=== PATIENT | male | born 1960 | race Caucasian/White ===

== ENCOUNTER → 2020-04-26 13:23 | Outpatient (BNVA) | payer OTHER, SELFPAY | PROVIDERS: PCP Internal Medicine; Visit Provider Internal Medicine | DX: M54.2 Cervicalgia (principal); Z91.81 History of falling | CPT/HCPCS: 72050; 99203 ==

== ENCOUNTER 2021-04-27 14:02 | Outpatient (REF) | payer OTHER, SELFPAY ==
[2021-04-27 15:05] LABS: Influenza A PCR NEGATIVE (Negative); Influenza B PCR NEGATIVE (Negative); Resp Syncy Virus RNA Qual PCR NEGATIVE (Negative); SARS COV2 PCR INHOUSE NEGATIVE (Negative)
== END 2021-04-27 14:03 | disposition home or self-care (01) ==
LOC: HO.LNP 14:02
PROVIDERS: Visit Provider Physician Assistant
DX: Z20.822 Contact with and (suspected) exposure to COVID-19 (principal); J06.9 Acute upper respiratory infection, unspecified
CPT/HCPCS: 0241U

== ENCOUNTER 2022-09-08 09:14 | Outpatient (REF) | payer OTHER, SELFPAY ==
[2022-09-08 09:34] LABS: MANUAL DIFF FLAG NO
[2022-09-08 10:17] LABS: Basophils Absolute Auto 0.1 X10*3/uL (0.0-0.2); Basophils Percent Auto 0.7 % (0-2); Eosinophils Absolute Auto 0.2 X10*3/uL (0.0-0.4); Eosinophils Percent Auto 1.9 % (0-4); Hematocrit 51.3 % (42.0-52.0); Hemoglobin 17.3 g/dl (14.0-18.0); Imm Gran Abs Auto 0.12 X10*3/uL (0.00-0.03); Imm Gran Pct Auto 1.4 % (0.0-0.4); Lymphocytes Absolute Auto 2.6 X10*3/uL (1.2-4.9); Lymphocytes Percent Auto 29.8 % (20-40); Mean Corpuscular HGB Conc 33.7 g/dl (31.0-36.0); Mean Corpuscular Hemoglobin 29.3 pg (27.0-33.0); Mean Corpuscular Volume 86.8 fL (80.0-98.0); Mean Platelet Volume 9.5 fL (9.4-12.4); Monocytes Absolute Auto 0.7 X10*3/uL (0.1-1.2); Monocytes Percent Auto 7.9 % (2-11); Neutrophils Percent Auto 58.3 % (45-73); Platelet Count 265 X10*3/uL (160-400); Red Blood Count 5.91 X10*6/uL (4.60-5.80); Red Cell Distribution Width 12.9 % (11.0-16.0); White Blood Count 8.6 X10*3/uL (4.8-10.8)
[2022-09-08 10:19] LABS: Appearance Urine Clear; Color Urine Yellow; Glucose Urine UA Negative (Negative); Leukocyte Esterase Urine Negative (Negative); Nitrite Urine Negative (Negative); PH 5.5 (5.0-9.0); Specific Gravity - Urine 1.025 (1.005-1.025); UMIC TRIGGER UA YES; Urine Blood Negative (Negative); Urine Ketones Negative (Negative); Urine Protein 30 (1+) mg/dL (Neg-Trace)
[2022-09-08 10:21] LABS: Bacteria Urine None Seen (None Seen); Hyaline Casts Urine 0-2 /LPF (0-2); RBC Urine 0-2 /HPF (0-2); Squamous Epithelial Cell Urine 0-2 /HPF (0-2); WBC Urine 0-5 /HPF (0-5)
[2022-09-08 11:33] LABS: Prostate Specific Antigen 1.34 ng/mL (<0.05-4.0)
[2022-09-08 11:43] LABS: Alanine Aminotransferase 43 U/L (0-40); Albumin Level 4.5 g/dL (3.5-5.0); Alkaline Phosphatase 51 U/L (39-117); Anion Gap 14 (12-20); Aspartate Amino Transferase 29 U/L (5-37); Bilirubin Total 0.8 mg/dL (0.0-1.0); Blood Urea Nitrogen 19 mg/dL (9-16); Calcium 9.5 mg/dL (8.4-10.2); Carbon Dioxide 24 mmol/L (22-29); Chloride 106 mmol/L (96-108); Cholesterol 252 mg/dL; Estimated Glomerular Filt Rate > 60; Glucose Random 107 mg/dL (60-115); HDL Cholesterol 35 mg/dL; Potassium 4.5 mmol/L (3.3-5.1); Sodium 140 mmol/L (135-145); Total Protein 7.2 g/dL (6.5-8.0)
[2022-09-08 16:57] LABS: LDL Cholesterol Calculated 163 mg/dl; Triglycerides 271 mg/dL
== END 2022-09-08 09:15 | disposition home or self-care (01) ==
LOC: HO.LAB 09:14
PROVIDERS: PCP Internal Medicine; Visit Provider Internal Medicine
DX: Z00.00 Encounter for general adult medical examination without abnormal findings (principal); Z12.5 Encounter for screening for malignant neoplasm of prostate
CPT/HCPCS: 36415; 80053; 80061; 81001; 84153; 85025

== ENCOUNTER 2023-02-02 10:16 | Outpatient (REF) | payer BC, SELFPAY ==
[2023-02-02 11:45] LABS: Alanine Aminotransferase 52 U/L (0-40); Albumin Level 4.5 g/dL (3.5-5.0); Alkaline Phosphatase 54 U/L (39-117); Anion Gap 14 (12-20); Aspartate Amino Transferase 35 U/L (5-37); Bilirubin Total 0.9 mg/dL (0.0-1.0); Blood Urea Nitrogen 16 mg/dL (9-16); Calcium 9.6 mg/dL (8.4-10.2); Carbon Dioxide 23 mmol/L (22-29); Chloride 107 mmol/L (96-108); Estimated Glomerular Filt Rate > 60; Glucose Random 129 mg/dL (60-115); Magnesium 2.2 mg/dL (1.6-2.6); Potassium 3.8 mmol/L (3.3-5.1); Sodium 140 mmol/L (135-145); Total Protein 7.6 g/dL (6.5-8.0)
== END 2023-02-02 10:17 | disposition home or self-care (01) ==
LOC: HO.LAB 10:16
PROVIDERS: PCP Internal Medicine; Visit Provider Internal Medicine
DX: E78.00 Pure hypercholesterolemia, unspecified (principal); R25.2 Cramp and spasm; K21.9 Gastro-esophageal reflux disease without esophagitis
CPT/HCPCS: 36415; 80053; 82550; 83735

== ENCOUNTER 2023-02-16 08:57 | Outpatient (REF) | payer BC, SELFPAY ==
[2023-02-16 10:02] LABS: Estimated Average Glucose 111 mg/dL; Hemoglobin A1C 138.5866 umol/L; Hemoglobin A1c % 5.5 % (<6.0)
[2023-02-16 10:41] LABS: Alanine Aminotransferase 59 U/L (0-40); Albumin Level 4.4 g/dL (3.5-5.0); Alkaline Phosphatase 49 U/L (39-117); Anion Gap 14 (12-20); Aspartate Amino Transferase 37 U/L (5-37); Bilirubin Total 0.8 mg/dL (0.0-1.0); Blood Urea Nitrogen 11 mg/dL (9-16); Calcium 9.6 mg/dL (8.4-10.2); Carbon Dioxide 24 mmol/L (22-29); Chloride 107 mmol/L (96-108); Estimated Glomerular Filt Rate > 60; Glucose Random 100 mg/dL (60-115); Sodium 141 mmol/L (135-145); Total Protein 7.4 g/dL (6.5-8.0)
== END 2023-02-16 08:58 | disposition home or self-care (01) ==
LOC: HO.LAB 08:57
PROVIDERS: PCP Internal Medicine; Visit Provider Internal Medicine
DX: R74.8 Abnormal levels of other serum enzymes (principal)
CPT/HCPCS: 36415; 80053; 82550; 83036

== ENCOUNTER 2023-02-28 10:14 | Outpatient (REF) | payer BC, SELFPAY ==
[2023-02-28 12:24] LABS: Alanine Aminotransferase 57 U/L (0-40); Albumin Level 4.5 g/dL (3.5-5.0); Alkaline Phosphatase 51 U/L (39-117); Aspartate Amino Transferase 34 U/L (5-37); Bilirubin Direct 0.3 mg/dL (0.0-0.5); Bilirubin Total 0.9 mg/dL (0.0-1.0); Total Protein 7.6 g/dL (6.5-8.0)
== END 2023-02-28 10:15 | disposition home or self-care (01) ==
LOC: HO.10HDL 10:14
PROVIDERS: Visit Provider Internal Medicine
DX: R74.8 Abnormal levels of other serum enzymes (principal); K21.9 Gastro-esophageal reflux disease without esophagitis
CPT/HCPCS: 36415; 80076; 82550

== ENCOUNTER 2023-03-19 09:23 | Outpatient (REF) | payer BC, SELFPAY ==
[2023-03-19 11:12] LABS: Alanine Aminotransferase 42 U/L (0-40); Albumin Level 4.3 g/dL (3.5-5.0); Alkaline Phosphatase 49 U/L (39-117); Aspartate Amino Transferase 30 U/L (5-37); Bilirubin Direct 0.2 mg/dL (0.0-0.5); Bilirubin Total 0.5 mg/dL (0.0-1.0); Total Protein 7.3 g/dL (6.5-8.0)
== END 2023-03-19 09:24 | disposition home or self-care (01) ==
LOC: HO.10HDL 09:23
PROVIDERS: Visit Provider Internal Medicine
DX: E78.00 Pure hypercholesterolemia, unspecified (principal); R79.89 Other specified abnormal findings of blood chemistry; R74.8 Abnormal levels of other serum enzymes
CPT/HCPCS: 36415; 80076; 82550

== ENCOUNTER 2023-04-13 09:42 | Outpatient (REF) | payer BC, SELFPAY ==
[2023-04-13 10:11] LABS: MANUAL DIFF FLAG NO
[2023-04-13 10:51] LABS: Basophils Absolute Auto 0.1 X10*3/uL (0.0-0.2); Basophils Percent Auto 0.6 % (0-2); Eosinophils Absolute Auto 0.1 X10*3/uL (0.0-0.4); Eosinophils Percent Auto 1.6 % (0-4); Hematocrit 50.9 % (42.0-52.0); Hemoglobin 17.2 g/dl (14.0-18.0); Imm Gran Abs Auto 0.13 X10*3/uL (0.00-0.03); Imm Gran Pct Auto 1.5 % (0.0-0.4); Lymphocytes Absolute Auto 2.5 X10*3/uL (1.2-4.9); Lymphocytes Percent Auto 28.6 % (20-40); Mean Corpuscular HGB Conc 33.8 g/dl (31.0-36.0); Mean Corpuscular Hemoglobin 29.8 pg (27.0-33.0); Mean Corpuscular Volume 88.2 fL (80.0-98.0); Mean Platelet Volume 9.7 fL (9.4-12.4); Monocytes Absolute Auto 0.6 X10*3/uL (0.1-1.2); Monocytes Percent Auto 6.9 % (2-11); Neutrophils Absolute Auto 5.3 x10*3/uL (2.0-8.3); Neutrophils Percent Auto 60.8 % (45-73); Platelet Count 276 X10*3/uL (160-400); Red Blood Count 5.77 X10*6/uL (4.60-5.80); Red Cell Distribution Width 13.2 % (11.0-16.0); White Blood Count 8.7 X10*3/uL (4.8-10.8)
[2023-04-13 11:18] LABS: Alanine Aminotransferase 59 U/L (0-40); Albumin Level 4.3 g/dL (3.5-5.0); Alkaline Phosphatase 47 U/L (39-117); Aspartate Amino Transferase 36 U/L (5-37); Bilirubin Direct 0.2 mg/dL (0.0-0.5); Bilirubin Total 0.7 mg/dL (0.0-1.0); Total Protein 7.3 g/dL (6.5-8.0)
== END 2023-04-13 09:43 | disposition home or self-care (01) ==
LOC: HO.LAB 09:42
PROVIDERS: PCP Internal Medicine; Visit Provider Internal Medicine
DX: R79.89 Other specified abnormal findings of blood chemistry (principal)
CPT/HCPCS: 36415; 80076; 82550; 85025; 86140

== ENCOUNTER 2023-06-10 11:36 | Emergency (ER) | payer BC, SELFPAY ==
--- NOTE | ~2023-06-10 | XR_ITS ---
EXAMINATION: XR CHEST CLINICAL INFORMATION: Chest pain. COMPARISON: None available. TECHNIQUE: 2 views of the chest were obtained. FINDINGS: The lungs are well inflated. There is no gross pneumothorax. Heart size is normal. Degenerative changes in the thoracic spine. No pleural effusion. Evaluation of the lower right lung is limited as it is partially somewhat obscured due to overlying leads. No gross focal consolidation to suggest pneumonia is appreciated. XR/XR chest 2V IMPRESSION: Evaluation of the lower right lung is limited as it is partially obscured due to overlying leads. No gross focal consolidation to suggest pneumonia is appreciated. This study was presented today June 10, 2023 at 12:43 PM for interpretation. Stat results provided at this time as requested by referring provider.
[2023-06-10 11:49] VITALS: BP 135/94; BP 179/89; PULSE 77; PULSE 80; RESP 16; TEMP 36.8; O2SAT 97; BMI 29.2
[2023-06-10 11:51] VITALS: PULSE 81
--- NOTE | 2023-06-10 11:52 | ECG_ITS ---
Test Reason : CHEST PAIN Blood Pressure : / mmHG Vent. Rate : 074 BPM Atrial Rate : 074 BPM P-R Int : 186 ms QRS Dur : 076 ms QT Int : 370 ms P-R-T Axes : 070 037 037 degrees QTc Int : 410 ms Normal sinus rhythm Normal ECG No previous ECGs available Referred By: Ena Heredia Electronically Signed By:SUSANA BARRIOS MD
--- NOTE | 2023-06-10 11:52 | ED.CHESTPAIN ---
HPI - Chest Pain General Chief Complaint: Chest Pain Stated Complaint: CHEST PAIN PER EMS Time Seen by Provider: 06/10/23 11:52 Source: patient, family, EMS and RN notes reviewed Mode of arrival: EMS Limitations: no limitations History of Present Illness HPI narrative: Patient is a 62-year-old male with history of GERD presenting to the emergency department with complaint chest pain since 11:00 a.m.. Patient reports that the pain began approximately 30-45 minutes after shoveling snow this morning. States he ate a small amount of spicy sausage prior to onset of pain and was unsure if this was related, but became concerned when pain persisted. He denies any shortness of breath or palpitations. Does report some lightheadedness associated with the chest pain. Denies any nausea or vomiting. Denies fevers. Denies recent cough or other URI symptoms. Denies any lower extremity edema or calf pain or swelling. Denies pain at present. Received 324mg ASA from EMS. Daughter reports that patient was previously on a statin but it was discontinued due to elevation of liver enzymes. MD complaint: chest pain Onset (ago): minute(s) Timing of current episode: now resolved Prior episodes: No Onset: during rest (after exertion) Pain location: left chest Pain radiation: none Severity: moderate Quality: sharp Relieving factors: nothing Associated symptoms: other (lightheaded) Treatment prior to arrival: aspirin Related Data Home Medications Medication Instructions Recorded Confirmed atorvastatin 40 mg tablet 40 mg PO DAILY 04/27/21 omeprazole magnesium 20 mg 20 mg PO DAILY 04/27/21 capsule,delayed release zolpidem 10 mg tablet 10 mg PO BEDTIME PRN 04/27/21 Allergies Allergy/AdvReac Type Severity Reaction Status Date / Time No Known Allergies Allergy Verified 06/10/23 11:49 [No Known Allergies*] Review of Systems Review of Systems: As per HPI. Yes all other systems are reviewed and are negative Constitutional: Constitutional: Reports as per HPI [facility] Social History Social History Patient Tobacco Use Status: Former Tobacco user Smoked in Last 30 Days: No Use of substances other than those prescribed or required for medical reasons: No Advance Directives: No Advance Directives Information Provided: No Physical Exam Vital Signs: Vital Signs: Last Vital Signs Temp 98.2 F 06/10/23 11:49 Pulse 77 06/10/23 11:49 Resp 16 06/10/23 11:49 BP 179/89 H 06/10/23 11:49 Pulse Ox 97 06/10/23 11:49 O2 Del Method Room Air 06/10/23 11:49 BMI result Body Mass Index 29.2 Vital signs have been reviewed and appear to be correct. Blood pressure elevated. Heart rate normal. Respiratory rate normal. Temperature normal. Oxygen saturation normal. Const: General: cooperative, healthy appearing and no acute distress Orientation/consciousness: oriented to person, oriented to place, oriented to time and patient oriented x3 Limitations: no limitations HEENT: Head: Yes normocephalic and Yes atraumatic Ears: external ears normal General nose exam: Normal external nose present Face and sinus: Yes face symmetric Mouth: oropharynx normal and moist mucous membranes Throat: Yes uvula midline Eyes: Pupils: Equal, round and reactive pupils present Neck: Neck: Yes normal visual inspection and Yes supple Resp: Effort & Inspection: normal respiratory effort and able to speak in complete sentences Auscultation: clear to auscultation bilaterally Cardio: Rate: regular rate Rhythm: regular rhythm Heart sounds: S1 normal heart sound present and S2 normal heart sound present GI: Palpation (GI): Soft to palpation and nontender Auscultation: normoactive bowel sounds : General: Yes no CVA tenderness Back/Spine/Pelvis: Back: no CVA tenderness Skin: General skin exam: elasticity normal and turgor normal Neuro: General: oriented to person, oriented to place, oriented to time, patient oriented x3, moves all extremities, no focal motor deficits and CN's II-XI intact bilaterally Cranial nerves: Yes Equal, round and reactive pupils present Cognition (Neuro): normal cognition Extrem: General: Yes full ROM, Yes no pedal edema and Yes no calf tenderness Psych: Mental Status: mental status grossly normal Affect: normal affect Thought process: Normal thought process present Medications Administered Discontinued Medications Generic Name Dose Route Start Last Admin Trade Name Freq PRN Reason Stop Dose Admin Aspirin 324 mg 06/10/23 11:52 06/10/23 11:54 Aspirin 81 Mg Tab.Chew PO 06/10/23 11:53 Not Given ONCE ONE Medical Decision Making Medical Decision Making MDM Narrative: Patient is a 62-year-old male with history of GERD presenting to the emergency department with complaint chest pain since 11:00 a.m.. On exam patient is awake, A+Ox3, VS WNL, afebrile, normal neurological exam without focal deficits, physical exam findings as above. Given reported symptoms and physical exam findings, initial differential includes ACS, musculoskeletal pain, GERD, PUD. Do not suspect aortic dissection, esophageal rupture,, pneumothorax. Unlikely PE, Wells negative. Plan: EKG, CXR, labs Labs notable for cytosis, no anemia, mildly elevated BUN, mildly elevated ALT, troponin 9.2 will repeat in 3 hours. X-ray notable for no evidence of pneumonia, cardiomegaly. My interpretation is in agreement with the radiologist's interpretation. EKG shows normal sinus rhythm. HEART score of 3. Repeat troponin downtrending. Feel patient is stable for discharge home. Instructed patient to follow up with PCP. Return precautions discussed at bedside. Patient verbalized understanding of and agreement with plan. Differential Diagnosis Differential Diagnoses: The differential diagnosis associated with the presentation includes As per [facility]. Admission/Observation Consideration of admission/observation: Escalation of care including admission/observation considered Lab Data [facility] Lab Attestation statement: I reviewed the patient's lab results. As per MDM. 06/10/23 11:58 06/10/23 11:58 Labs: Lab Results 06/10/23 06/10/23 Range/Units 11:58 15:06 WBC 10.5 (4.8-10.8) X10*3/uL RBC 5.74 (4.60-5.80) X10*6/uL Hgb 17.0 (14.0-18.0) g/dl Hct 48.9 (42.0-52.0) % MCV 85.2 (80.0-98.0) fL MCH 29.6 (27.0-33.0) pg MCHC 34.8 (31.0-36.0) g/dl RDW 12.7 (11.0-16.0) % Plt Count 264 (160-400) X10*3/uL MPV 9.1 L (9.4-12.4) fL Immature Gran % (Auto) 0.9 H (0.0-0.4) % Neut % (Auto) 66.8 (45-73) % Lymph % (Auto) 25.5 (20-40) % [place] % (Auto) 5.0 (2-11) % Eos % (Auto) 1.4 (0-4) % Baso % (Auto) 0.4 (0-2) % Lymph # (Auto) 2.7 (1.2-4.9) X10*3/uL [place] # (Auto) 0.5 (0.1-1.2) X10*3/uL Eos # (Auto) 0.2 (0.0-0.4) X10*3/uL Baso # (Auto) 0.0 (0.0-0.2) X10*3/uL Abs Immat Gran (auto) 0.09 H (0.00-0.03) X10*3/uL Absolute Neuts (auto) 7.0 (2.0-8.3) x10*3/uL Absolute Nucleated RBC 0.000 (0.0-0.012) X10*3/uL Nucleated RBC % (auto) 0.0 (0.0-0.2) /100WBC PT 11.3 (11.1-13.3) SEC INR 0.9 (0.9-1.1) Sodium 140 (135-145) mmol/L Potassium 3.9 (3.3-5.1) mmol/L Chloride 108 (96-108) mmol/L Carbon Dioxide 24 (22-29) mmol/L Anion Gap 12 (12-20) BUN 19 H (9-16) mg/dL Creatinine 1.00 (0.5-1.4) mg/dL Estim Creat Clear Calc 90.4 Estimated GFR > 60 Random Glucose 96 (60-115) mg/dL Calcium 9.7 (8.4-10.2) mg/dL Total Bilirubin 0.6 (0.0-1.0) mg/dL AST 29 (5-37) U/L ALT 46 H (0-40) U/L Alkaline Phosphatase 53 (39-117) U/L Troponin I High Sens 9.2 7.9 (<3.5-35.0) ng/L Total Protein 7.4 (6.5-8.0) g/dL Albumin 4.4 (3.5-5.0) g/dL COVID-19 (IGGY) Negative (Negative) COVID-19 Clin Com See Note Influenza Type A ([place]IL) Negative (Negative) Influenza Type B ([place]IL) Negative (Negative) Influenza A & B Note See Note Independent Interpretation I performed an independent interpretation of an: EKG (Mode sinus rhythm, rate 74 beats per minute, normal MN interval and QTC, no evidence of STEMI) and Plain X-Ray Interpretation: No evidence of pneumonia or cardiomegaly on chest x-ray Radiology Impression Discussion of test interpretation with radiology: I have reviewed the radiologist's reading. Radiologist Impression: XR/XR chest 2V IMPRESSION: Evaluation of the lower right lung is limited as it is partially obscured due to overlying leads. No gross focal consolidation to suggest pneumonia is appreciated. External Record Review External record reviewed: Inpatient record, Office record and Outpatient record Scores Heart Score History: -1- moderately suspicious ECG: -0- normal Age: -1- >45 - <65 Risk factory: -1- 1 or 2 risk factors Troponin: -0- < or = normal limit Score: 3 Risk: 1.7% Discharge Plan Discharge Clinical Impression: Chest pain Patient Disposition: Home, Self-Care Instructions: Chest Pain (DC) Additional Instructions: You were evaluated in the emergency department today for chest pain. Your evaluation has shown no signs of medical conditions requiring emergent intervention at this time, however we recommend that you follow-up with your primary care physician as soon as possible for further testing as an outpatient. Return to the emergency department if you experience worsening or uncontrolled chest pain, shortness of breath, lightheadedness, feeling faint, loss of consciousness, nausea, vomiting, or any other concerning symptoms. Prescriptions: No Action atorvastatin 40 mg tablet 40 mg PO DAILY zolpidem 10 mg tablet 10 mg PO BEDTIME PRN omeprazole magnesium 20 mg capsule,delayed release(DR/EC) 20 mg PO DAILY
[2023-06-10 12:02] LABS: MANUAL DIFF FLAG NO
[2023-06-10 12:03] LABS: Basophils Percent Auto 0.4 % (0-2); Eosinophils Absolute Auto 0.2 X10*3/uL (0.0-0.4); Eosinophils Percent Auto 1.4 % (0-4); Hematocrit 48.9 % (42.0-52.0); Imm Gran Abs Auto 0.09 X10*3/uL (0.00-0.03); Imm Gran Pct Auto 0.9 % (0.0-0.4); Lymphocytes Absolute Auto 2.7 X10*3/uL (1.2-4.9); Lymphocytes Percent Auto 25.5 % (20-40); Mean Corpuscular HGB Conc 34.8 g/dl (31.0-36.0); Mean Corpuscular Hemoglobin 29.6 pg (27.0-33.0); Mean Corpuscular Volume 85.2 fL (80.0-98.0); Mean Platelet Volume 9.1 fL (9.4-12.4); Monocytes Absolute Auto 0.5 X10*3/uL (0.1-1.2); Neutrophils Percent Auto 66.8 % (45-73); Platelet Count 264 X10*3/uL (160-400); Red Blood Count 5.74 X10*6/uL (4.60-5.80); Red Cell Distribution Width 12.7 % (11.0-16.0); White Blood Count 10.5 X10*3/uL (4.8-10.8)
[2023-06-10 12:11] LABS: INTERNATIONAL NORM RATIO 0.9 (0.9-1.1); Prothrombin Time 11.3 SEC (11.1-13.3)
[2023-06-10 12:18] LABS: Alanine Aminotransferase 46 U/L (0-40); Albumin Level 4.4 g/dL (3.5-5.0); Alkaline Phosphatase 53 U/L (39-117); Anion Gap 12 (12-20); Aspartate Amino Transferase 29 U/L (5-37); Bilirubin Total 0.6 mg/dL (0.0-1.0); Blood Urea Nitrogen 19 mg/dL (9-16); Calcium 9.7 mg/dL (8.4-10.2); Carbon Dioxide 24 mmol/L (22-29); Chloride 108 mmol/L (96-108); Creatinine Clr Calc Pharmacy 90.4; Estimated Glomerular Filt Rate > 60; Glucose Random 96 mg/dL (60-115); Potassium 3.9 mmol/L (3.3-5.1); Sodium 140 mmol/L (135-145); Total Protein 7.4 g/dL (6.5-8.0)
[2023-06-10 12:26] LABS: COVID-19 Test Negative (Negative); IDNOW Serial# 08D9AD1C; Troponin-I High Sensitivity 9.2 ng/L (<3.5-35.0)
[2023-06-10 12:27] LABS: IDNOW Serial# 152EDE1D; Influenza A Negative (Negative); Influenza B2 Negative (Negative)
[2023-06-10 15:32] LABS: Troponin-I High Sensitivity 7.9 ng/L (<3.5-35.0)
[2023-06-10 16:03] VITALS: BP 139/87; PULSE 67; RESP 16; O2SAT 98
== END 2023-06-10 16:07 | disposition home or self-care (01) ==
PROVIDERS: Registered Nurse Emergency; Emergency Provider Emergency Medicine; PCP Internal Medicine
DX: R07.9 Chest pain, unspecified (principal); K21.9 Gastro-esophageal reflux disease without esophagitis; Z11.52 Encounter for screening for COVID-19; Z79.899 Other long term (current) drug therapy
CPT/HCPCS: 36415; 71046; 80053; 84484; 85025; 85610; 87502; 87635; 93005; 99283; 99285

== ENCOUNTER → 2023-06-10 11:52 | Outpatient (BNV) | payer BC, SELFPAY | PROVIDERS: Emergency Provider Emergency Medicine; PCP Internal Medicine; Visit Provider Internal Medicine Cardiovascular Disease | DX: R07.9 Chest pain, unspecified (principal) | CPT/HCPCS: 93010 ==

== ENCOUNTER 2023-06-15 09:12 | Outpatient (REF) | payer BC, SELFPAY ==
[2023-06-15 10:42] LABS: Cholesterol 216 mg/dL (<200); HDL Cholesterol 34 mg/dL (>40); LDL Cholesterol Calculated 149 mg/dL (<100); Triglycerides 167 mg/dL (<150)
== END 2023-06-15 09:13 | disposition home or self-care (01) ==
LOC: HO.LAB 09:12
PROVIDERS: PCP Internal Medicine; Visit Provider Internal Medicine
DX: E78.00 Pure hypercholesterolemia, unspecified (principal); K21.9 Gastro-esophageal reflux disease without esophagitis
CPT/HCPCS: 36415; 80061; 82550

== ENCOUNTER 2023-07-01 10:23 | Emergency (ER) | payer BC, SELFPAY ==
--- NOTE | ~2023-07-01 | XR_ITS ---
EXAMINATION: XR CHEST CLINICAL INFORMATION: SOB COMPARISON: None available. TECHNIQUE: Frontal view of the chest was obtained. FINDINGS: No significant abnormality is noted involving the heart, lungs, mediastinum, bony thorax or soft tissues. XR/XR chest 1V IMPRESSION: Unremarkable chest examination.
[2023-07-01 10:27] VITALS: BP 159/110; PULSE 98; RESP 16; TEMP 36.1; O2SAT 98; BMI 27.1
--- NOTE | 2023-07-01 10:30 | ECG_ITS ---
Test Reason : SOB Blood Pressure : / mmHG Vent. Rate : 086 BPM Atrial Rate : 086 BPM P-R Int : 172 ms QRS Dur : 086 ms QT Int : 360 ms P-R-T Axes : 068 040 057 degrees QTc Int : 430 ms Normal sinus rhythm Normal ECG When compared with ECG of 10-JUN-2023 12:44, No significant change was found Referred By: Generic ED Physician Electronically Signed By:SUSANA BARRIOS MD
[2023-07-01 11:07] LABS: MANUAL DIFF FLAG NO
[2023-07-01 11:16] LABS: Prothrombin Time 11.8 SEC (11.1-13.3)
[2023-07-01 11:17] LABS: Basophils Percent Auto 0.4 % (0-2); Eosinophils Absolute Auto 0.2 X10*3/uL (0.0-0.4); Hematocrit 52.1 % (42.0-52.0); Hemoglobin 17.9 g/dl (14.0-18.0); Imm Gran Abs Auto 0.06 X10*3/uL (0.00-0.03); Imm Gran Pct Auto 0.8 % (0.0-0.4); Lymphocytes Absolute Auto 2.5 X10*3/uL (1.2-4.9); Lymphocytes Percent Auto 31.7 % (20-40); Mean Corpuscular HGB Conc 34.4 g/dl (31.0-36.0); Mean Corpuscular Hemoglobin 29.3 pg (27.0-33.0); Mean Corpuscular Volume 85.4 fL (80.0-98.0); Mean Platelet Volume 9.1 fL (9.4-12.4); Monocytes Absolute Auto 0.6 X10*3/uL (0.1-1.2); Monocytes Percent Auto 7.4 % (2-11); Neutrophils Absolute Auto 4.6 x10*3/uL (2.0-8.3); Neutrophils Percent Auto 57.7 % (45-73); Platelet Count 250 X10*3/uL (160-400); Red Cell Distribution Width 12.6 % (11.0-16.0); White Blood Count 7.9 X10*3/uL (4.8-10.8)
[2023-07-01 11:27] LABS: Alanine Aminotransferase 55 U/L (0-40); Albumin Level 4.3 g/dL (3.5-5.0); Alkaline Phosphatase 53 U/L (39-117); Anion Gap 13 (12-20); Aspartate Amino Transferase 29 U/L (5-37); Bilirubin Direct 0.3 mg/dL (0.0-0.5); Bilirubin Total 0.9 mg/dL (0.0-1.0); Blood Urea Nitrogen 15 mg/dL (9-16); Calcium 10.2 mg/dL (8.4-10.2); Carbon Dioxide 29 mmol/L (22-29); Chloride 104 mmol/L (96-108); Creatinine Clr Calc Pharmacy 83.5; Estimated Glomerular Filt Rate > 60; Glucose Random 112 mg/dL (60-115); Potassium 4.6 mmol/L (3.3-5.1); Sodium 141 mmol/L (135-145); Total Protein 7.8 g/dL (6.5-8.0)
[2023-07-01 11:31] LABS: Troponin-I High Sensitivity 9.2 ng/L (<3.5-35.0)
[2023-07-01 11:33] LABS: Appearance Urine Clear; Color Urine Dark Yellow; Glucose Urine UA Negative (Negative); Leukocyte Esterase Urine Trace (Negative); Nitrite Urine Negative (Negative); Specific Gravity - Urine >= 1.030 (1.005-1.025); UMIC TRIGGER UACC YES; Urine Blood Negative (Negative); Urine Ketones Trace mg/dL (Negative); Urine Protein 100 (2+) mg/dL (Neg-Trace)
[2023-07-01 11:38] LABS: Bacteria Urine None Seen (None Seen); Hyaline Casts Urine 0-2 /LPF (0-2); RBC Urine 0-2 /HPF (0-2); Squamous Epithelial Cell Urine 0-2 /HPF (0-2); UACC Culture Trigger YES
[2023-07-01 11:51] LABS: Influenza A PCR POSITIVE (Negative); Influenza B PCR NEGATIVE (Negative); Resp Syncy Virus RNA Qual PCR NEGATIVE (Negative); SARS COV2 PCR INHOUSE NEGATIVE (Negative)
[2023-07-01 15:53] VITALS: BP 168/98; PULSE 90; RESP 16; TEMP 36.9; O2SAT 99
[2023-07-01 15:55] VITALS: O2SAT 98
--- NOTE | 2023-07-01 16:06 | ED_ITS ---
HPI - URI/Sore Throat General Chief Complaint: Upper Respiratory Symptoms Stated Complaint: Flu+ 1wk chest heaviness Time Seen by Provider: 07/01/23 15:46 Source: patient Mode of arrival: ambulatory Limitations: no limitations History of Present Illness HPI Narrative: Is a 62 old male who presents emergency department for evaluation of a productive cough for 8 days in the setting of recent illness. Over the past 2 days he developed diffuse anterior chest heaviness that is reproducible to cough and deep inspiration. Previously had headache, body aches, chills which have since subsided however he Reports that he contacted his primary care provider who prescribed Tamiflu. Denies fevers, chills, headache, dizziness, neck pain, neck stiffness, cough, sore throat, nausea, vomiting, abdominal pain, numbness or tingling of the extremities, genitourinary symptoms. Related Data Home Medications Medication Instructions Recorded Confirmed atorvastatin 40 mg tablet 40 mg PO DAILY 04/27/21 omeprazole magnesium 20 mg 20 mg PO DAILY 04/27/21 capsule,delayed release zolpidem 10 mg tablet 10 mg PO BEDTIME PRN 04/27/21 Previous Rx's Medication Instructions Recorded albuterol sulfate 90 mcg/actuation 2 puff inhalation Q4-6H PRN 07/01/23 aerosol inhaler shortness of breath or wheezing #6.7 grams azithromycin 250 mg tablet See Rx Instructions PO .COMPLEX #6 07/01/23 tabs Allergies Allergy/AdvReac Type Severity Reaction Status Date / Time No Known Allergies Allergy Verified 06/10/23 11:49 [No Known Allergies*] Review of Systems 2 Review of Systems: Yes all other systems are reviewed and are negative PMFSH Past Medical History Attestation statement: The following information was validated with the patient. Source: old records reviewed Social History Social History Alcohol intake: current Alcohol intake frequency: holidays/special occasions only Patient Tobacco Use Status: Former Tobacco user Smoked in Last 30 Days: No Use of substances other than those prescribed or required for medical reasons: No Advance Directives: No Advance Directives Information Provided: No Physical Exam 2 Vital Signs: Vital Signs: Last Vital Signs Temp 98.4 F 07/01/23 15:53 Pulse 90 07/01/23 15:53 Resp 16 07/01/23 15:53 BP 168/98 H 07/01/23 15:53 Pulse Ox 98 07/01/23 15:55 O2 Del Method Room Air 07/01/23 15:55 BMI result Body Mass Index 27.1 Appearance: Alert.?Oriented to person, place and time. No acute distress.?Normal affect. Eyes: Pupils equal, round and reactive to light.? ENT: TM normal bilaterally. Pharynx normal.?? Neck: Normal inspection.? Neck supple.??No cervical adenopathy CVS: Heart sounds normal. Normal heart rate and rhythm.? Pulses normal.?? Respiratory: No respiratory distress.? Lung sounds with mild rhonchi left lower lobe Abdomen: Soft and non-tender. Normoactive bowel sounds. Skin: Skin warm and dry.? Normal skin color.? ? Extremities: No lower extremity edema.? Neuro: Moves all extremities spontaneously. Sensation intact bilaterally. No motor deficits. Ambulates with normal steady gait. Medical Decision Making Medical Decision Making [facility] Narrative: Patient is a 62 year old male, presenting for evaluation of cough and reproducible chest pain, atypical for ACS. COVID-19 testing negative. Influenza A testing positive. At this time history and physical exam not consistent with ACS/PE; high sensitive troponin is normal and consistent with baseline, Wells negative. CXR without evidence of pneumonia Well-appearing, nontoxic, afebrile, no tachycardia or tachypnea/hypoxia. Speaking clear full sentences, ambulatory with steady gait. Discussed course of treatment with albuterol inhaler as needed for shortness of breath/wheezing and azithromycin in addition to conservative treatment including rest, hydration, Tylenol/ibuprofen as needed for fever and body aches, saline nasal spray, humidifier, [id number] cold medication. Advised to follow-up with primary care provider as needed, discussed reasons to return back to the emergency department. All questions were answered. Patient discharged home in stable condition. Differential Diagnosis Differential Diagnoses: The differential diagnosis associated with the presentation includes ( See narrative above) Admission/Observation Consideration of admission/observation: Escalation of care including admission/observation considered ( see narrative above) Lab Data [facility] Lab Attestation statement: I reviewed the patient's lab results. ( see narrative above) CBC and CMP overall unremarkable. High sensitive troponin within normal range consistent with baseline. Urinalysis without evidence of infection. Influenza A positive 07/01/23 10:57 07/01/23 10:57 Labs: Lab Results 07/01/23 07/01/23 Range/Units 10:56 10:57 WBC 7.9 (4.8-10.8) X10*3/uL RBC 6.10 H (4.60-5.80) X10*6/uL Hgb 17.9 (14.0-18.0) g/dl Hct 52.1 H (42.0-52.0) % MCV 85.4 (80.0-98.0) fL MCH 29.3 (27.0-33.0) pg MCHC 34.4 (31.0-36.0) g/dl RDW 12.6 (11.0-16.0) % Plt Count 250 (160-400) X10*3/uL MPV 9.1 L (9.4-12.4) fL Immature Gran % (Auto) 0.8 H (0.0-0.4) % Neut % (Auto) 57.7 (45-73) % Lymph % (Auto) 31.7 (20-40) % [place] % (Auto) 7.4 (2-11) % Eos % (Auto) 2.0 (0-4) % Baso % (Auto) 0.4 (0-2) % Lymph # (Auto) 2.5 (1.2-4.9) X10*3/uL [place] # (Auto) 0.6 (0.1-1.2) X10*3/uL Eos # (Auto) 0.2 (0.0-0.4) X10*3/uL Baso # (Auto) 0.0 (0.0-0.2) X10*3/uL Abs Immat Gran (auto) 0.06 H (0.00-0.03) X10*3/uL Absolute Neuts (auto) 4.6 (2.0-8.3) x10*3/uL Absolute Nucleated RBC 0.000 (0.0-0.012) X10*3/uL Nucleated RBC % (auto) 0.0 (0.0-0.2) /100WBC PT 11.8 (11.1-13.3) SEC INR 1.0 (0.9-1.1) Sodium 141 (135-145) mmol/L Potassium 4.6 (3.3-5.1) mmol/L Chloride 104 (96-108) mmol/L Carbon Dioxide 29 (22-29) mmol/L Anion Gap 13 (12-20) BUN 15 (9-16) mg/dL Creatinine 0.98 (0.5-1.4) mg/dL Estim Creat Clear Calc 83.5 Estimated GFR > 60 Random Glucose 112 (60-115) mg/dL Calcium 10.2 (8.4-10.2) mg/dL Total Bilirubin 0.9 (0.0-1.0) mg/dL Direct Bilirubin 0.3 (0.0-0.5) mg/dL AST 29 (5-37) U/L ALT 55 H (0-40) U/L Alkaline Phosphatase 53 (39-117) U/L Troponin I High Sens 9.2 (<3.5-35.0) ng/L Total Protein 7.8 (6.5-8.0) g/dL Albumin 4.3 (3.5-5.0) g/dL Urine Color Dark Yellow Urine Appearance Clear Urine pH 5.0 (5.0-9.0) Ur Specific [place] >= 1.030 H (1.005-1.025) Urine Protein 100 (2+) H (Neg-Trace) mg/dL Urine Glucose (UA) Negative (Negative) mg/dL Urine Ketones Trace (Negative) mg/dL Urine Blood Negative (Negative) Urine Nitrite Negative (Negative) Ur Leukocyte Esterase Trace H (Negative) Urine RBC 0-2 (0-2) /HPF Urine WBC 6-10 H (0-5) /HPF Ur Squamous Epith Cells 0-2 (0-2) /HPF Urine Bacteria None Seen (None Seen) Hyaline Casts 0-2 (0-2) /LPF Influenza Type A (PCR) POSITIVE A (Negative) Influenza Type B (PCR) NEGATIVE (Negative) RSV RNA Qual (PCR) NEGATIVE (Negative) SARS-CoV-2 RNA (RT-PCR) NEGATIVE (Negative) Independent Interpretation I performed an independent interpretation of an: EKG and Plain X-Ray (No evidence of pneumonia) Interpretation: Rate: 86 Rhythm:? Normal sinus rhythm [place]:?normal Normal P waves.? Normal [place].?? Normal QRS complex.?? ST T wave :??No ST elevation, no ST depression qTC:430 prior studies:? May 2023 The study has been interpreted contemporaneously by me. Radiology Impression Discussion of test interpretation with radiology: I have reviewed the radiologist's reading. Radiologist Impression: XR/XR chest 1V IMPRESSION: Unremarkable chest examination. External Record Review External record reviewed: Outpatient record Prescription Management I considered prescription management with: Pain Medication ( acetaminophen/ibuprofen) and Antibiotic Discharge Plan Discharge Clinical Impression: Bronchitis Patient Disposition: Home, Self-Care Instructions: Acute Bronchitis (ED) Additional Instructions: You can take ibuprofen 200 mg, 3 tablets (600mg) every 6-8 hours as needed for pain, in addition to Tylenol 500 mg, 2 tablets (1,000mg) every 4-6 hours as needed for pain, but not to exceed 3 doses daily (3,000mg).? Prescriptions: New azithromycin 250 mg tablet See Rx Instructions .ROUTE .COMPLEX Qty: 6 0RF Rx Instructions: For 250 mg dose pack: take 500 mg today (day 1), then 250 mg for 4 days (days 2-5) albuterol sulfate 90 mcg/actuation HFA aerosol inhaler 2 puff inhalation Q4-6H PRN (Reason: shortness of breath or wheezing) Qty: 6.7 0RF No Action atorvastatin 40 mg tablet 40 mg PO DAILY zolpidem 10 mg tablet 10 mg PO BEDTIME PRN omeprazole magnesium 20 mg capsule,delayed release(DR/EC) 20 mg PO DAILY Referrals: Jaydon Dang MD [Primary Care Provider] -
== END 2023-07-01 16:23 | disposition home or self-care (01) ==
PROVIDERS: Physician Assistant; Emergency Provider Student in an Organized Health Care Education/Training Program; PCP Internal Medicine
DX: J40 Bronchitis, not specified as acute or chronic (principal); R05.9 Cough, unspecified; R07.89 Other chest pain; J02.9 Acute pharyngitis, unspecified; R51.9 Headache, unspecified; M79.10 Myalgia, unspecified site; M54.2 Cervicalgia; Z20.828 Contact with and (suspected) exposure to other viral communicable diseases; Z11.52 Encounter for screening for COVID-19; Z79.899 Other long term (current) drug therapy
CPT/HCPCS: 0241U; 71045; 80048; 80076; 81001; 84484; 85025; 85610; 87086; 93005; 99283; 99285

== ENCOUNTER → 2023-07-01 10:30 | Outpatient (BNV) | payer BC, SELFPAY | PROVIDERS: Emergency Provider Student in an Organized Health Care Education/Training Program; PCP Internal Medicine; Visit Provider Internal Medicine Cardiovascular Disease | DX: R06.02 Shortness of breath (principal) | CPT/HCPCS: 93010 ==

== ENCOUNTER → 2023-08-13 07:53 | Outpatient (REF) | payer BC, SELFPAY ==
--- NOTE | 2023-08-13 07:55 | CA_ITS ---
Acquisition Time: 2023-08-13 08:06:16 Total Exercise Time: 00:04:01 Test Indications: CP Medications: SEE H Protocol: CANDY Max HR: 151 BPM 96% of Pred: 156 BPM Max BP: 200/090 mmHG Max Work Load: 5.8 METS PT EXERCISEDON STD CANDY PROTOCOL FOR 4 MIN INTO STAGE 2. MAX HR 150-96% MAX. NO CP. SOME SOB. PVC'S NOTED. 1MM ST DEP IN INF/LAT LEADS. SUSPICIOUS FOR ISCHEMIA. WILL REFER TO CARDIOLOGY FOR FURTHER EVAL. Referred By: Jaydon Carpenter Overread By: DEVON CARPENTER MD
== END ==
LOC: HO.CARD 07:53
PROVIDERS: PCP Internal Medicine; Visit Provider Internal Medicine
DX: R07.89 Other chest pain (principal)
CPT/HCPCS: 93005; 93017

== ENCOUNTER 2023-08-13 14:12 | Outpatient (AMB) | payer BC, SELFPAY ==
[2023-08-13 14:31] VITALS: BP 140/78; PULSE 84; BMI 27.5
--- NOTE | 2023-08-13 14:31 | MHC.OFFVIS ---
Intake Vital Signs 08/13/23 14:31 Height 6 ft Weight 202 lb 13.204 oz BMI 27.5 BP 140/78 H Blood Pressure Location Lt brachial Position Sitting Pulse 84 Pulse Source Monitor Intake Visit Reasons: Chest pain/ NPV/ Croke Accompanied by: Daughter Allergies No Known Allergies [No Known Allergies*] Allergy (Verified 06/10/23 11:49) Medication List - Last Reconciled 08/13/23 by Angelo Patton MD albuterol sulfate 90 mcg/actuation 2 puffs inhalation Q4-6H PRN azithromycin For 250 mg dose pack: take 500 mg today (day 1), then 250 mg for 4 days (days 2-5) metoprolol tartrate 50 mg PO BID omeprazole magnesium 20 mg PO DAILY HPI HPI Comments History of Present Illness Details Blake is here for consultation regarding chest pain and shortness of breath. He does not have any known coronary disease myocardial infarction fact any cardiac issues. Fairly active at baseline. Recently, he is noticing some chest pain/shortness of breath type symptoms off and on. He notices after he did some snow shoveling June. Since then, different times. More so exertional but not very clear. Shortness of breath seems to be more of a problem than the chest pain. He underwent stress test today through his own PCP and that showed ST depression and hence he is referred. Blood pressure is on the higher side last few times but he states he does not have any hypertension. Otherwise, he has been on statins in the past but there were abnormal LFTs and they were apparently stopped. [facility] Family History (Updated 08/13/23 @ 14:35 by Jennifer Woody) Mother Heart attack Social History Alcohol intake: current Alcohol intake frequency: holidays/special occasions only Patient Tobacco Use Status: Former Tobacco user Review of Systems Const Denies weakness ENT Denies dizziness Card Denies chest pain, Denies chest pain with activity, Denies syncope, Denies rapid heart rate, Denies pedal edema, Denies edema, Denies leg edema, Denies lightheadedness, Denies palpitations, Denies dyspnea, Denies dyspnea on exertion and Denies orthopnea Resp Denies cough, Denies dyspnea and Denies dyspnea on exertion GI Denies hematochezia and Denies change in stool character Musc Denies abnormal gait, Denies muscle cramps, Denies muscle weakness, Denies numbness, Denies radiating pain into limb and Denies tingling Neuro Denies abnormal gait, Denies dizziness, Denies syncope, Denies numbness, Denies tingling and Denies weakness Endo Denies palpitations Physical Exam Vital Signs: Last Vital Signs Pulse 84 08/13/23 14:31 BP 140/78 H 08/13/23 14:31 BMI result Body Mass Index 27.5 Const General: comfortable and no acute distress Orientation/consciousness: patient oriented x3 HEENT Other: Unremarkable Head: Yes normal to inspection Neck Neck: Yes normal visual inspection Chest Chest palpation & inspection: normal inspection of the chest Resp Auscultation: clear to auscultation bilaterally Cardio Palpation: normal PMI Heart sounds: S1 normal heart sound present, S2 normal heart sound present, no gallops, no murmurs and no rubs GI Palpation (GI): Soft to palpation Back/Spine/Pelvis Other: unremarkable Skin General skin exam: no rashes or lesions noted Neuro General: patient oriented x3 Extrem General: Yes normal to inspection Psych Mental Status: mental status grossly normal Office Procedures EKG Details: EKG with sinus rhythm at 84/Min; no significant ST-T changes and otherwise unremarkable. [place]. [address]-[id number], Complete Assessment & Plan Assessment & Plan (1) Precordial chest pain: Code(s): R07.2 - Precordial pain (2) Shortness of breath: Code(s): R06.02 - Shortness of breath (3) Abnormal stress test: Code(s): R94.39 - Abnormal result of other cardiovascular function study Plan Exercise stress test findings reviewed. He was able to exercise for about 4 minutes and reached 5.8 Mets. Reached target heart rates and had a hypertensive blood pressure response. He did not have any angina. There was ST depression. Upsloping as well as some horizontal ST depression. Seen during exercise and recovery. Findings discussed with patient as well as daughter who came for appointment. Recommend pursuing further workup with echocardiogram/coronary CTA. They are agreement. In the interim, avoid any form of strenuous activity. In case there is any further chest pain, to contact emergency help. Of note, during a previous ER visit from June, he was indeed influenza A positive. That might contribute to some of his symptoms. Follow-up after the above testing. Orders: Orders CT Cardiac Coronary Angio Today I25.10 - Atherosclerotic heart disease of [place] coronary artery without angina pectoris, R07.2 - Precordial pain CA echo transthoracic complete Today R06.02 - Shortness of breath Medications: New metoprolol tartrate Take 1 tablet night before and another on morning of CT scan. 50 mg PO BID 2 tabs 0RF Changed From azithromycin For 250 mg dose pack: take 500 mg today (day 1), then 250 mg for 4 days (days 2-5) 6 tabs 0RF To azithromycin For 250 mg dose pack: take 500 mg today (day 1), then 250 mg for 4 days (days 2-5) Coding Level of Care Code New Pt Level 4 (98825) Diagnoses Precordial chest pain R07.2 Shortness of breath R06.02 Abnormal stress test R94.39 CPT Codes EKG - CPT: 98556-[id number], Complete ([id number])
== END 2023-08-13 15:08 | disposition home or self-care (01) ==
PROVIDERS: PCP Internal Medicine; Visit Provider Internal Medicine
DX: R07.2 Precordial pain (principal); R06.02 Shortness of breath; R94.39 Abnormal result of other cardiovascular function study
CPT/HCPCS: 93010; 99204

== ENCOUNTER → 2023-08-28 14:45 | Outpatient (REF) | payer BC, SELFPAY ==
--- NOTE | 2023-08-28 14:51 | CA_ITS ---
Transthoracic Echocardiogram Patient (Last, First, Middle): Blake Fuentes A Gender: Male Date of : 1960 Age: 63 Procedure Date: 08/28/2023 Procedure Type: Transthoracic Echocardiogram Location: OP Height: 182.88 cm Weight: 95.26 kg BSA: 2.18 m2 Heart Rate: bpm BP: 148 / 76 mmHg Practice Director: JOSE Referring MD: Angelo Patton MD Symptoms: R06.02 - Shortness of breath Study Quality: Adequate ECG Rhythm: Sinus Conclusions: - The left ventricular systolic function is normal. The calculated ejection fraction is 66% by biplane method. - No obvious valvular pathology seen on this study. Findings Left Ventricle Normal left ventricular cavity size. There is mildly increased left ventricular wall thickness. The left ventricular systolic function is normal. The calculated ejection fraction is 66% by biplane method. Diastolic function is normal for age. Cannot exclude basal inferior wall hypokinesis. LV peak GLS -17%. Right Ventricle Normal right ventricular cavity size and systolic function. Atria Both atria are normal in size. Aortic Valve There is a normal trileaflet aortic valve. There is no aortic valve stenosis. There is no aortic valve regurgitation. Mitral Valve The mitral valve appears normal. There is no mitral valve regurgitation. There is no mitral valve stenosis. Pulmonic Valve The pulmonic valve is likely normal. Tricuspid Valve Normal tricuspid valve structure. There is trace tricuspid valve regurgitation. There is no evidence of pulmonary hypertension. Great Vessels The asc aorta is normal in size. Venous The inferior vena cava is normal in size and collapses greater than 50% with inspiration. Pericardium/Pleural There is no evidence of pericardial effusion. Prior Study Comparison No prior study available for comparison. Recommendations, Care & Conclusions No obvious valvular pathology seen on this study. Measurements 2D Linear Measurements IVSd: 1.07 0.6-0.9/0.6-1.0 cm LVIDd: 4.82 3.9-5.3/4.2-5.9 cm LVIDd Index: 2.21 2.4-3.2/2.2-3.1 cm/m2 LVIDs: 3.18 2.0-3.6 cm LVPWd: 1.08 0.7-1.1 cm LA Diam: 3.20 2.7-3.8/3.0-4.0 cm LAIDs Index: 1.47 1.5-2.3 cm/m2 LV Mass: 235.69 67-162/88-224 g LV Mass Index: 108.12 43-95/49-115 g/m2 LVOT Diam: 2.10 3.0+(-)1.3 cm 2D Systolic Function EF 4C: 64.50 >55% EF 2C: 69.20 >55% EF BiP: 66.30 >55% Mitral Valve MV Pk E: 0.77 MV PK A: 0.67 MV Decel Time: 195.00 E/A: 1.10 E'Lateral: 6.96 E'Medial: 5.87 E/E' Med: 13.00 E/E' Lat: 11.00 PHT: 57.00 MVA PHT: 3.86 Decel [place]: 3.93 Aortic Valve AoV Pk Mauri: 1.26 AoV Mn Mauri: 0.92 AoV VTI: 0.28 AoV Pk Grad: 6.00 Aov Mn Grad: 4.00 CHRIS Cont.VTI: 2.41 LVOT LVOT Pk Mauri: 0.97 LVOT Mn Mauri: 0.63 LVOT VTI: 0.20 LVOT Pk Grad: 4.00 LVOT Mn Grad: 2.00 LVOT Diam: 2.10 LVOT Area: 3.46 Diastolic Function MV Pk E: 0.77 MV Pk A: 0.67 E/A: 1.10 E'Medial: 5.87 E/E' Med: 13.00 E' Laterial: 6.96 E/E' Lat: 11.00 Right Ventricle TAPSE (mm): 22.40 TVS' Mauri: 14.10 Tricuspid Valve TR Pk Mauri: 2.21 TR Pk Grad: 20.00 RA Press: 3.00 RVSP: 23.00 Great Vessels Aorta Sinus of Valsalva: 3.50 2.0-3.[address] [place]: 2.40 1.7-3.4 cm Ao Asc: 3.60 2.1-3.4 cm Updated in Other Vendor System with Status of Final Angelo Patton MD electronically signed on 08/30/2023 9:22:49 AM with status of Final
== END ==
LOC: HO.CARD 14:45
PROVIDERS: PCP Internal Medicine; Visit Provider Internal Medicine
DX: R06.02 Shortness of breath (principal)
CPT/HCPCS: 93306; 93356

== ENCOUNTER → 2023-08-28 14:51 | Outpatient (BNV) | payer BC, SELFPAY | PROVIDERS: PCP Internal Medicine; Visit Provider Internal Medicine | DX: R06.02 Shortness of breath (principal); I36.1 Nonrheumatic tricuspid (valve) insufficiency | CPT/HCPCS: 93306; 93356 ==

== ENCOUNTER 2023-09-14 08:49 | Outpatient (REF) | payer BC, SELFPAY ==
[2023-09-14 09:55] LABS: Anion Gap 14 (12-20); Blood Urea Nitrogen 16 mg/dL (9-16); Calcium 9.7 mg/dL (8.4-10.2); Carbon Dioxide 24 mmol/L (22-29); Chloride 106 mmol/L (96-108); Estimated Glomerular Filt Rate > 60; Glucose Random 152 mg/dL (60-115); Potassium 3.7 mmol/L (3.3-5.1); Sodium 140 mmol/L (135-145)
== END 2023-09-14 08:50 | disposition home or self-care (01) ==
LOC: HO.LAB 08:49
PROVIDERS: PCP Internal Medicine; Visit Provider Internal Medicine
DX: R94.39 Abnormal result of other cardiovascular function study (principal)
CPT/HCPCS: 36415; 80048

== ENCOUNTER 2023-10-04 12:37 | Emergency (ER) | payer BC, SELFPAY ==
--- NOTE | ~2023-10-04 | XR_ITS ---
EXAMINATION: XR CHEST CLINICAL INFORMATION: Pain. COMPARISON: Chest radiograph dated 07/01/2023. TECHNIQUE: Frontal view of the chest was obtained. FINDINGS: Heart size is normal. The lungs are clear. No pleural effusion. No pneumothorax. No acute osseous abnormality. XR/XR chest 1V IMPRESSION: No acute cardiopulmonary disease.
--- NOTE | 2023-10-04 12:43 | ECG_ITS ---
Test Reason : CP Blood Pressure : / mmHG Vent. Rate : 071 BPM Atrial Rate : 071 BPM P-R Int : 182 ms QRS Dur : 078 ms QT Int : 386 ms P-R-T Axes : 063 035 045 degrees QTc Int : 419 ms Sinus rhythm with occasional Premature ventricular complexes Nonspecific T wave abnormality Abnormal ECG When compared with ECG of 01-JUL-2023 10:44, Premature ventricular complexes are now Present Referred By: Generic ED Physician Electronically Signed By:Marco A Booker
[2023-10-04 12:54] VITALS: BP 129/76; BP 146/88; PULSE 72; PULSE 96; RESP 17; TEMP 37.1; O2SAT 95; O2SAT 96; BMI 10.2
--- NOTE | 2023-10-04 12:55 | ED.CHESTPAIN ---
HPI - Chest Pain General Chief Complaint: Chest Pain Stated Complaint: CHEST PAIN Time Seen by Provider: 10/04/23 12:55 Source: patient and old records reviewed Mode of arrival: EMS Limitations: no limitations History of Present Illness ED Provider: RAYA SALDANA narrative: 63 yo male with PMH of + stress test back in August he started to get worked up after noting chest pain after shoveling back in June. He notes he just had a coronary CTA 1 week ago at [place] and was told by Abdi he needs a cath but not sure when. Today at work he moved some tables on rollers and developed chest pain and dyspnea lasting 20 min or so. He was given 324mg asa by EMS and 0.4mg SL nitro. He denies pain right now just states something isn't right. stress back in August by PCP showed There was ST depression. Upsloping as well as some horizontal ST depression. Seen during exercise and recovery. recent ECHO 08/27 showed normal EF possible basal inferior wall hypokinesis. MD complaint: chest pain Pertinent past history: coronary artery disease Onset (ago): minute(s) (30) Timing of current episode: now resolved Prior episodes: Yes Onset: during exertion Pain location: substernal Pain radiation: none Severity: moderate Quality: heaviness Relieving factors: nitroglycerin Exacerbating factors: exertion Context: other (recent dx of CAD) Associated symptoms: dyspnea Treatment prior to arrival: aspirin and nitroglycerin Related Data Home Medications ?Medication ?Instructions ?Recorded ?Confirmed omeprazole magnesium 20 mg 20 mg PO DAILY 04/27/21 08/13/23 capsule,delayed release azithromycin 250 mg tablet See Rx Instructions PO .COMPLEX 08/13/23 08/13/23 Previous Rx's ?Medication ?Instructions ?Recorded albuterol sulfate 90 mcg/actuation 2 puff inhalation Q4-6H PRN 07/01/23 aerosol inhaler shortness of breath or wheezing #6.7 grams metoprolol tartrate 50 mg tablet 50 mg PO BID #2 tabs 08/13/23 aspirin 81 mg tablet,delayed 81 mg PO DAILY #30 tabs 09/27/23 release atorvastatin 40 mg tablet (Lipitor) 40 mg PO BEDTIME #30 tabs 09/27/23 nitroglycerin 0.4 mg sublingual 0.4 mg sublingual Q5M PRN chest 09/27/23 tablet pain #25 tabs carvedilol 6.25 mg tablet 6.25 mg PO BID #60 tabs 10/04/23 Allergies Allergy/AdvReac Type Severity Reaction Status Date / Time No Known Allergies Allergy Verified 10/04/23 13:03 [No Known Allergies*] Review of Systems Review of Systems: Constitutional : No Weight loss, No Fever, No Chills ENT/Mouth : No sore throat, No Rhinorrhea Eyes: No Eye Pain, No Swelling Cardiovascular : pos Chest Pain, pos SOB, no Dyspnea on Exertion, No Orthopnea, No Edema, No Palpitations Respiratory : No Cough, No Sputum Gastrointestinal : no Nausea, No Vomiting, No Diarrhea, No abdominal Pain, No Hematochezia, No Melena Genitourinary : No Dysuria, No Urinary Frequency Musculoskeletal : No joint pain, No Myalgias, No Joint Swelling Skin : No Skin Lesions, No rash Neuro : No Weakness, No Numbness, No Dizziness, No Headache Psych : No Anxiety/Panic, No Depression All other systems reviewed and are negative [facility] Past Medical History Attestation statement: The following information was validated with the patient. Source: old records reviewed Medical History (Updated 10/04/23 @ 16:11 by Kim Funez DO) Shortness of breath URI (upper respiratory infection) Precordial chest pain Abnormal stress test Family History Family History (Updated 08/13/23 @ 14:35 by Jennifer Woody) Mother Heart attack Social History Social History Alcohol intake: current Alcohol intake frequency: holidays/special occasions only Patient Tobacco Use Status: Former Tobacco user Advance Directives: No Advance Directives Information Provided: Yes Do you have a plan to hurt others: No Plan Physical Exam Vital Signs: Vital Signs: Last Vital Signs Temp 98.8 F 10/04/23 12:54 Pulse 62 10/04/23 15:53 Resp 7 L 10/04/23 15:53 BP 142/79 H 10/04/23 15:53 Pulse Ox 96 10/04/23 15:53 O2 Del Method Room Air 10/04/23 15:53 BMI result Body Mass Index 10.2 Appearance: Alert. Oriented X3. No acute distress. Eyes: Pupils equal, round and reactive to light. ENT: Pharynx normal. Neck: Normal inspection. Neck supple. CVS: Normal heart rate and rhythm. Pulses normal. Respiratory: No respiratory distress. Breath sounds normal. Abdomen: Soft and nontender. Skin: Skin warm and dry. Normal skin color. Normal skin turgor. Extremities: No lower extremity edema. No calf ttp Neuro: Oriented X 3. No motor deficit. No sensory deficit. Medical Decision Making Medical Decision Making [facility] Narrative: 63 yo male with recent ongoing intermittent chest pain since June being seen by Dr. 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 He had recurrence of pain after moving tables on rollers at work today. Now has no pain just feels off - EKG ordered, troponin and will obtain CTA from [place] and discuss with Jhony. Differential Diagnosis Differential Diagnoses: The differential diagnosis associated with the presentation includes ACS, angina Admission/Observation Consideration of admission/observation: Escalation of care including admission/observation considered trop flat x 2 discussed with cardiology who recommends DC on carvedilol Consult Healthcare Provider Management of the patient was discussed with: Entry Level Programmer message sent to Dr. Booker 226pm repeat troponin has planned cath if negative trop DC out on carvedilol 6.25mg BID patient is not taking metoprolol per his reports to me Lab Data [facility] Lab Attestation statement: I reviewed the patient's lab results. 10/04/23 13:43 10/04/23 13:43 Labs: Lab Results 10/04/23 10/04/23 Range/Units 13:43 15:41 WBC 9.5 (4.8-10.8) X10*3/uL RBC 5.46 (4.60-5.80) X10*6/uL Hgb 16.7 (14.0-18.0) g/dl Hct 46.4 (42.0-52.0) % MCV 85.0 (80.0-98.0) fL MCH 30.6 (27.0-33.0) pg MCHC 36.0 (31.0-36.0) g/dl RDW 13.1 (11.0-16.0) % Plt Count 239 (160-400) X10*3/uL MPV 9.3 L (9.4-12.4) fL Immature Gran % (Auto) 0.8 H (0.0-0.4) % Neut % (Auto) 66.1 (45-73) % Lymph % (Auto) 24.4 (20-40) % [place] % (Auto) 6.2 (2-11) % Eos % (Auto) 2.2 (0-4) % Baso % (Auto) 0.3 (0-2) % Lymph # (Auto) 2.3 (1.2-4.9) X10*3/uL [place] # (Auto) 0.6 (0.1-1.2) X10*3/uL Eos # (Auto) 0.2 (0.0-0.4) X10*3/uL Baso # (Auto) 0.0 (0.0-0.2) X10*3/uL Abs Immat Gran (auto) 0.08 H (0.00-0.03) X10*3/uL Absolute Neuts (auto) 6.3 (2.0-8.3) x10*3/uL Absolute Nucleated RBC 0.000 (0.0-0.012) X10*3/uL Nucleated RBC % (auto) 0.0 (0.0-0.2) /100WBC PT 12.0 (11.1-13.3) SEC INR 1.0 (0.9-1.1) Sodium 141 (135-145) mmol/L Potassium 3.8 (3.3-5.1) mmol/L Chloride 109 H (96-108) mmol/L Carbon Dioxide 23 (22-29) mmol/L Anion Gap 13 (12-20) BUN 15 (9-16) mg/dL Creatinine 0.84 (0.5-1.4) mg/dL Estim Creat Clear Calc 42.1 Estimated GFR > 60 Random Glucose 155 H (60-115) mg/dL Calcium 9.2 (8.4-10.2) mg/dL Magnesium 2.0 (1.6-2.6) mg/dL Total Bilirubin 0.6 (0.0-1.0) mg/dL Direct Bilirubin 0.2 (0.0-0.5) mg/dL AST 33 (5-37) U/L ALT 43 H (0-40) U/L Alkaline Phosphatase 52 (39-117) U/L Troponin I High Sens 4.7 4.9 (<3.5-35.0) ng/L B-Natriuretic Peptide < 10 (<100) pg/mL Total Protein 7.0 (6.5-8.0) g/dL Albumin 4.1 (3.5-5.0) g/dL Independent Interpretation I performed an independent interpretation of an: EKG and Plain X-Ray Interpretation: Rate: 71 Rhythm: NSR with PVCs [place]: normal Normal P waves. Normal [place]. Normal QRS complex. ST T wave : normal no RENEE qTC: 419 prior studies: no acute ischemia The study has been interpreted contemporaneously by me. . Radiology Impression Discussion of test interpretation with radiology: I have reviewed the radiologist's reading. Independent Historian Clinical information obtained from an independent historian. History obtained from or confirmed by: EMS External Record Review External record reviewed: Inpatient record, Office record and Outpatient record Prescription Management I considered prescription management with: Other Discharge Plan Discharge Clinical Impression: Chest pain Qualifiers: Chest pain type: unspecified Qualified Code(s): R07.9 - Chest pain, unspecified Patient Disposition: Home, Self-Care Instructions: Chest Pain (ED) Additional Instructions: no exertion or strenuous activity, continue 81mg aspirin daily follow up with cardiology as planned for catheterization return for any worsening chest pain or symptoms hold carvedilol if blood pressure less than 90 top number or heart rate below 50 Prescriptions: New carvedilol 6.25 mg tablet 6.25 mg PO BID Qty: 60 0RF Rx Instructions: must administer with a meal/food No Action aspirin 81 mg tablet,delayed release (DR/EC) 81 mg PO DAILY Qty: 30 5RF nitroglycerin 0.4 mg tablet, sublingual 0.4 mg sublingual Q5M PRN (Reason: chest pain) Qty: 25 1RF Rx Instructions: do not exceed 3 doses per episode atorvastatin [Lipitor] 40 mg tablet 40 mg PO BEDTIME Qty: 30 5RF albuterol sulfate 90 mcg/actuation HFA aerosol inhaler 2 puff inhalation Q4-6H PRN (Reason: shortness of breath or wheezing) Qty: 6.7 0RF omeprazole magnesium 20 mg capsule,delayed release(DR/EC) 20 mg PO DAILY azithromycin 250 mg tablet See Rx Instructions .ROUTE .COMPLEX Rx Instructions: For 250 mg dose pack: take 500 mg today (day 1), then 250 mg for 4 days (days 2-5) metoprolol tartrate 50 mg tablet 50 mg PO BID Qty: 2 0RF Rx Instructions: Take 1 tablet night before and another on morning of CT scan. Print Language: [place]ian
[2023-10-04 13:49] LABS: MANUAL DIFF FLAG NO
[2023-10-04 13:50] LABS: Basophils Percent Auto 0.3 % (0-2); Eosinophils Absolute Auto 0.2 X10*3/uL (0.0-0.4); Eosinophils Percent Auto 2.2 % (0-4); Hematocrit 46.4 % (42.0-52.0); Hemoglobin 16.7 g/dl (14.0-18.0); Imm Gran Abs Auto 0.08 X10*3/uL (0.00-0.03); Imm Gran Pct Auto 0.8 % (0.0-0.4); Lymphocytes Absolute Auto 2.3 X10*3/uL (1.2-4.9); Lymphocytes Percent Auto 24.4 % (20-40); Mean Corpuscular Hemoglobin 30.6 pg (27.0-33.0); Mean Platelet Volume 9.3 fL (9.4-12.4); Monocytes Absolute Auto 0.6 X10*3/uL (0.1-1.2); Monocytes Percent Auto 6.2 % (2-11); Neutrophils Absolute Auto 6.3 x10*3/uL (2.0-8.3); Neutrophils Percent Auto 66.1 % (45-73); Platelet Count 239 X10*3/uL (160-400); Red Blood Count 5.46 X10*6/uL (4.60-5.80); Red Cell Distribution Width 13.1 % (11.0-16.0); White Blood Count 9.5 X10*3/uL (4.8-10.8)
[2023-10-04 14:04] VITALS: BP 135/78; PULSE 67; RESP 14; O2SAT 96
[2023-10-04 14:07] LABS: Alanine Aminotransferase 43 U/L (0-40); Albumin Level 4.1 g/dL (3.5-5.0); Alkaline Phosphatase 52 U/L (39-117); Anion Gap 13 (12-20); Aspartate Amino Transferase 33 U/L (5-37); Bilirubin Direct 0.2 mg/dL (0.0-0.5); Bilirubin Total 0.6 mg/dL (0.0-1.0); Blood Urea Nitrogen 15 mg/dL (9-16); Calcium 9.2 mg/dL (8.4-10.2); Carbon Dioxide 23 mmol/L (22-29); Chloride 109 mmol/L (96-108); Creatinine Clr Calc Pharmacy 42.1; Estimated Glomerular Filt Rate > 60; Glucose Random 155 mg/dL (60-115); Potassium 3.8 mmol/L (3.3-5.1); Sodium 141 mmol/L (135-145)
[2023-10-04 14:12] LABS: B Type Natriuretic Peptide < 10 pg/mL (<100)
[2023-10-04 14:14] LABS: Troponin-I High Sensitivity 4.7 ng/L (<3.5-35.0)
[2023-10-04 14:57] VITALS: BP 132/75; PULSE 61; RESP 18; O2SAT 95
--- NOTE | 2023-10-04 15:16 | P.CONCA_ITS ---
History of Present Illness History of Present Illness Date of Service: 10/04/23 Requesting physician: Kim Funez Chief complaint: SOB, elevated BP Narrative: [age] gentleman who had stress testing recently done for shortness of breath. He had a hypertensive response to exercise with ST depressions. Subsequent to that he had coronary CTA performed which is showing concern for multivessel disease. Circumflex was read as moderate to severe stenosis. He has no chest discomfort but he gets shortness of breath with activities. Clearly has uncontrolled hypertension. 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 She checked the blood pressure it was more than 200 systolic. Subsequently came to the emergency department. Blood pressure has improved here. His EKG has no dynamic changes. There are some PVCs. His troponin is normal. He is denying any symptoms currently. He is denying any chest discomfort. [facility] Past Medical History Medical History (Updated 10/04/23 @ 15:19 by Marco A Booker MD) Shortness of breath URI (upper respiratory infection) Precordial chest pain Abnormal stress test Family History Family History (Updated 08/13/23 @ 14:35 by Jennifer Woody) Mother Heart attack Social History Social History Alcohol intake: current Alcohol intake frequency: holidays/special occasions only Patient Tobacco Use Status: Former Tobacco user Advance Directives: No Advance Directives Information Provided: Yes Do you have a plan to hurt others: No Plan Meds Allergies Allergy/AdvReac Type Severity Reaction Status Date / Time No Known Allergies Allergy Verified 10/04/23 13:03 [No Known Allergies*] Home Medications ?Medication ?Instructions ?Recorded ?Confirmed ?Last Taken ?Type omeprazole magnesium 20 mg 20 mg PO DAILY 04/27/21 08/13/23 Unknown History capsule,delayed release azithromycin 250 mg tablet See Rx Instructions PO .COMPLEX 08/13/23 08/13/23 Unknown History Physical Exam 2 Vital Signs: Vital Signs: Last Vital Signs Temp 98.8 F 10/04/23 12:54 Pulse 61 10/04/23 14:57 Resp 18 10/04/23 14:57 BP 132/75 10/04/23 14:57 Pulse Ox 95 10/04/23 14:57 O2 Del Method Room Air 10/04/23 14:57 BMI result Body Mass Index 10.2 GENERAL APPEARANCE: in no acute distress, pleasant. NECK: no carotid bruit, no jugular venous distention. SKIN: no suspicious lesions, warm and dry. HEART: no murmurs, regular rate and rhythm. LUNGS: clear to auscultation bilaterally. ABDOMEN: soft, nontender. EXTREMITIES: no edema. PERIPHERAL PULSES: equal. NEUROLOGIC: No gross deficits, AAO X 3 Objective Labs and Meds 10/04/23 13:43 10/04/23 13:43 Lab results: Laboratory Results - last 24 hr 10/04/23 13:43 WBC 9.5 RBC 5.46 Hgb 16.7 Hct 46.4 MCV 85.0 MCH 30.6 MCHC 36.0 RDW 13.1 Plt Count 239 MPV 9.3 L Immature Gran % (Auto) 0.8 H Neut % (Auto) 66.1 Lymph % (Auto) 24.4 [place] % (Auto) 6.2 Eos % (Auto) 2.2 Baso % (Auto) 0.3 Lymph # (Auto) 2.3 [place] # (Auto) 0.6 Eos # (Auto) 0.2 Baso # (Auto) 0.0 Abs Immat Gran (auto) 0.08 H Absolute Neuts (auto) 6.3 Absolute Nucleated RBC 0.000 Nucleated RBC % (auto) 0.0 PT 12.0 INR 1.0 Sodium 141 Potassium 3.8 Chloride 109 H Carbon Dioxide 23 Anion Gap 13 BUN 15 Creatinine 0.84 Estim Creat Clear Calc 42.1 Estimated GFR > 60 Random Glucose 155 H Calcium 9.2 Magnesium 2.0 Total Bilirubin 0.6 Direct Bilirubin 0.2 AST 33 ALT 43 H Alkaline Phosphatase 52 Troponin I High Sens 4.7 B-Natriuretic Peptide < 10 Total Protein 7.0 Albumin 4.1 Assessment and Plan (1) Essential hypertension: Status: Acute (2) Shortness of breath: Status: Acute Plan Pleasant 63 gentleman who is here for shortness of breath in the setting of elevated blood pressures. He had stress testing followed by coronary CTA showing coronary disease. He is due to get an outpatient workup for that. He had hypertensive response to exercise previously. I think his main problem is uncontrolled blood pressure. He is saying he has not taking any medications currently. Add carvedilol 6.25 mg twice a day. Check another set of troponins. If negative he can be discharged home and we can continue further workup as outpatient. If his troponin is abnormal then I will admit him for further workup. Thank you for allowing me to participate in the care of your patient. Please feel free to contact me if you have any questions. Procedures Date of Service Date of Service: 10/04/23
[2023-10-04 15:53] VITALS: BP 142/79; PULSE 62; RESP 7; O2SAT 96
[2023-10-04 16:08] LABS: Troponin-I High Sensitivity 4.9 ng/L (<3.5-35.0)
[2023-10-04 16:50] VITALS: BP 142/79; PULSE 66; RESP 15; TEMP 36.8; O2SAT 97
== END 2023-10-04 16:51 | disposition home or self-care (01) ==
PROVIDERS: Emergency Provider Emergency Medicine; PCP Internal Medicine
DX: R07.9 Chest pain, unspecified (principal); R06.00 Dyspnea, unspecified; I25.10 Atherosclerotic heart disease of native coronary artery without angina pectoris; Z79.899 Other long term (current) drug therapy
CPT/HCPCS: 36415; 71045; 80048; 80076; 83735; 83880; 84484; 85025; 85610; 93005; 99283; 99284

== ENCOUNTER → 2023-10-04 13:24 | Outpatient (BNV) | payer BC, SELFPAY | PROVIDERS: Emergency Provider Emergency Medicine; PCP Internal Medicine; Visit Provider Internal Medicine Cardiovascular Disease | DX: I10 Essential (primary) hypertension (principal); R06.02 Shortness of breath | CPT/HCPCS: 93010; 99223 ==

== ENCOUNTER 2023-10-10 07:20 | Emergency (ER) | payer BC, SELFPAY ==
[2023-10-10 07:24] VITALS: BP 156/88; PULSE 73; RESP 20; TEMP 36.9; O2SAT 98; BMI 29.4
--- NOTE | 2023-10-10 07:24 | ECG_ITS ---
Test Reason : chest pain Blood Pressure : / mmHG Vent. Rate : 082 BPM Atrial Rate : 082 BPM P-R Int : 174 ms QRS Dur : 076 ms QT Int : 352 ms P-R-T Axes : 064 034 042 degrees QTc Int : 411 ms Normal sinus rhythm Normal ECG When compared with ECG of 04-OCT-2023 13:13, Premature ventricular complexes are no longer Present Referred By: Generic ED Physician Electronically Signed By:JANICE TORRES
[2023-10-10 07:36] LABS: MANUAL DIFF FLAG NO
[2023-10-10 07:37] LABS: Basophils Percent Auto 0.3 % (0-2); Eosinophils Absolute Auto 0.2 X10*3/uL (0.0-0.4); Eosinophils Percent Auto 2.1 % (0-4); Hematocrit 48.1 % (42.0-52.0); Hemoglobin 16.8 g/dl (14.0-18.0); Imm Gran Abs Auto 0.08 X10*3/uL (0.00-0.03); Imm Gran Pct Auto 0.8 % (0.0-0.4); Lymphocytes Percent Auto 20.7 % (20-40); Mean Corpuscular HGB Conc 34.9 g/dl (31.0-36.0); Mean Corpuscular Hemoglobin 30.4 pg (27.0-33.0); Mean Corpuscular Volume 87.1 fL (80.0-98.0); Mean Platelet Volume 9.6 fL (9.4-12.4); Monocytes Absolute Auto 0.7 X10*3/uL (0.1-1.2); Monocytes Percent Auto 6.9 % (2-11); Neutrophils Absolute Auto 6.8 x10*3/uL (2.0-8.3); Neutrophils Percent Auto 69.2 % (45-73); Platelet Count 251 X10*3/uL (160-400); Red Blood Count 5.52 X10*6/uL (4.60-5.80); Red Cell Distribution Width 13.2 % (11.0-16.0); White Blood Count 9.8 X10*3/uL (4.8-10.8)
[2023-10-10 07:45] VITALS: PULSE 72; RESP 16; O2SAT 98
--- NOTE | 2023-10-10 07:47 | ED.CHESTPAIN ---
HPI - Chest Pain General Chief Complaint: Chest Pain Stated Complaint: chest pain Time Seen by Provider: 10/10/23 07:36 Source: patient and old records reviewed Mode of arrival: ambulatory Limitations: no limitations History of Present Illness ED Provider: RAYA SALDANA narrative: 63 yo male with recent ongoing intermittent chest pain since June being seen by Dr. Patton had abnormal stress by PCP now had coronary CTA showing disease I just saw him on 10/[address] Booker after chest pain episode and we started him on carvedilol 6.25mg PO BID. He comes back today with c/o MD complaint: chest pain Pertinent past history: coronary artery disease Onset (ago): hour(s) (630am today) Timing of current episode: now resolved Prior episodes: Yes Onset: during exertion Pain location: substernal Pain radiation: none Severity: mild Quality: tightness Relieving factors: nitroglycerin and rest Exacerbating factors: exertion Associated symptoms: dyspnea Treatment prior to arrival: aspirin and nitroglycerin Related Data Home Medications ?Medication ?Instructions ?Recorded ?Confirmed omeprazole magnesium 20 mg 20 mg PO DAILY 04/27/21 08/13/23 capsule,delayed release azithromycin 250 mg tablet See Rx Instructions PO .COMPLEX 08/13/23 08/13/23 Previous Rx's ?Medication ?Instructions ?Recorded albuterol sulfate 90 mcg/actuation 2 puff inhalation Q4-6H PRN 07/01/23 aerosol inhaler shortness of breath or wheezing #6.7 grams metoprolol tartrate 50 mg tablet 50 mg PO BID #2 tabs 08/13/23 aspirin 81 mg tablet,delayed 81 mg PO DAILY #30 tabs 09/27/23 release atorvastatin 40 mg tablet (Lipitor) 40 mg PO BEDTIME #30 tabs 09/27/23 nitroglycerin 0.4 mg sublingual 0.4 mg sublingual Q5M PRN chest 09/27/23 tablet pain #25 tabs carvedilol 6.25 mg tablet 6.25 mg PO BID #60 tabs 10/04/23 Allergies Allergy/AdvReac Type Severity Reaction Status Date / Time No Known Allergies Allergy Verified 10/10/23 07:32 [No Known Allergies*] Review of Systems Review of Systems: Constitutional : No Weight loss, No Fever, No Chills ENT/Mouth : No sore throat, No Rhinorrhea Eyes: No Eye Pain, No Swelling Cardiovascular : pos Chest Pain, pos SOB, no Dyspnea on Exertion, No Orthopnea, No Edema, No Palpitations Respiratory : No Cough, No Sputum Gastrointestinal : no Nausea, No Vomiting, No Diarrhea, No abdominal Pain, No Hematochezia, No Melena Genitourinary : No Dysuria, No Urinary Frequency Musculoskeletal : No joint pain, No Myalgias, No Joint Swelling Skin : No Skin Lesions, No rash Neuro : No Weakness, No Numbness, No Dizziness, No Headache Psych : No Anxiety/Panic, No Depression Heme/Lymph: No Bruising, No Lymphadenopathy Endocrine : No Polyuria, No Polydipsia All other systems reviewed and are negative [facility] Past Medical History Attestation statement: The following information was validated with the patient. Source: old records reviewed Medical History Shortness of breath URI (upper respiratory infection) Precordial chest pain Abnormal stress test Family History Family History (Updated 08/13/23 @ 14:35 by Jennifer Woody) Mother Heart attack Social History Social History Alcohol intake: current Alcohol intake frequency: holidays/special occasions only Patient Tobacco Use Status: Former Tobacco user Smoked in Last 30 Days: No Advance Directives: No Advance Directives Information Provided: Yes Do you have a plan to hurt others: No Plan Physical Exam Vital Signs: Vital Signs: Last Vital Signs Temp 98.4 F 10/10/23 07:24 Pulse 72 10/10/23 07:45 Resp 16 10/10/23 07:45 BP 156/88 H 10/10/23 07:24 Pulse Ox 98 10/10/23 07:45 O2 Del Method Room Air 10/10/23 07:45 BMI result Body Mass Index 29.4 Appearance: Alert. Oriented X3. No acute distress. Eyes: Pupils equal, round and reactive to light. ENT: Pharynx normal. Neck: Normal inspection. Neck supple. CVS: Normal heart rate and rhythm. Pulses normal. Respiratory: No respiratory distress. Breath sounds normal. Abdomen: Soft and nontender. Skin: Skin warm and dry. Normal skin color. Normal skin turgor. Extremities: No lower extremity edema. No calf ttp Neuro: Oriented X 3. No motor deficit. No sensory deficit. Course Course Course Narrative: Dr. Patton to transfer to [facility] - no heparin patient took his coreg and aspirin this AM already Medical Decision Making Medical Decision Making [facility] Narrative: 63 yo male with recent ongoing intermittent chest pain since June being seen by Dr. Patton had abnormal stress by PCP now had coronary CTA showing disease with recent visit on 10/03 seen by cardiology here and started on carvedilol 6.25 mg comes again with chest pain at this time EKG, chest xray, troponin and cardiology consultation. Differential Diagnosis Differential Diagnoses: The differential diagnosis associated with the presentation includes ACS, chest pain Admission/Observation Consideration of admission/observation: Escalation of care including admission/observation considered transfer for cath today he is NPO Consult Healthcare Provider Management of the patient was discussed with: Tmh Teacher message sent to Abdi at 810am Lab Data [facility] Lab Attestation statement: I reviewed the patient's lab results. 10/10/23 07:31 10/10/23 07:31 Labs: Lab Results 10/10/23 Range/Units 07:31 WBC 9.8 (4.8-10.8) X10*3/uL RBC 5.52 (4.60-5.80) X10*6/uL Hgb 16.8 (14.0-18.0) g/dl Hct 48.1 (42.0-52.0) % MCV 87.1 (80.0-98.0) fL MCH 30.4 (27.0-33.0) pg MCHC 34.9 (31.0-36.0) g/dl RDW 13.2 (11.0-16.0) % Plt Count 251 (160-400) X10*3/uL MPV 9.6 (9.4-12.4) fL Immature Gran % (Auto) 0.8 H (0.0-0.4) % Neut % (Auto) 69.2 (45-73) % Lymph % (Auto) 20.7 (20-40) % [place] % (Auto) 6.9 (2-11) % Eos % (Auto) 2.1 (0-4) % Baso % (Auto) 0.3 (0-2) % Lymph # (Auto) 2.0 (1.2-4.9) X10*3/uL [place] # (Auto) 0.7 (0.1-1.2) X10*3/uL Eos # (Auto) 0.2 (0.0-0.4) X10*3/uL Baso # (Auto) 0.0 (0.0-0.2) X10*3/uL Abs Immat Gran (auto) 0.08 H (0.00-0.03) X10*3/uL Absolute Neuts (auto) 6.8 (2.0-8.3) x10*3/uL Absolute Nucleated RBC 0.000 (0.0-0.012) X10*3/uL Nucleated RBC % (auto) 0.0 (0.0-0.2) /100WBC Sodium 143 (135-145) mmol/L Potassium 3.8 (3.3-5.1) mmol/L Chloride 109 H (96-108) mmol/L Carbon Dioxide 27 (22-29) mmol/L Anion Gap 11 L (12-20) BUN 16 (9-16) mg/dL Creatinine 0.96 (0.5-1.4) mg/dL Estim Creat Clear Calc 93.1 Estimated GFR > 60 Random Glucose 94 (60-115) mg/dL Calcium 9.7 (8.4-10.2) mg/dL Total Bilirubin 0.6 (0.0-1.0) mg/dL AST 30 (5-37) U/L ALT 42 H (0-40) U/L Alkaline Phosphatase 50 (39-117) U/L Troponin I High Sens 5.1 (<3.5-35.0) ng/L Total Protein 7.2 (6.5-8.0) g/dL Albumin 4.3 (3.5-5.0) g/dL Independent Interpretation I performed an independent interpretation of an: EKG Interpretation: Rate: 82 Rhythm: NSR Reyno: normal Normal P waves. Normal SE[place]OUR. Normal QRS complex. ST T wave : no RENEE qTC: 411 prior studies: no acute ischemia The study has been interpreted contemporaneously by me. . External Record Review External record reviewed: Inpatient record Discharge Plan Discharge Clinical Impression: Chest pain Qualifiers: Chest pain type: precordial pain Qualified Code(s): R07.2 - Precordial pain Patient Disposition: Xfer Acute Care Hospital Transfer Details: [facility] Prescriptions: No Action aspirin 81 mg tablet,delayed release (DR/EC) 81 mg PO DAILY Qty: 30 5RF nitroglycerin 0.4 mg tablet, sublingual 0.4 mg sublingual Q5M PRN (Reason: chest pain) Qty: 25 1RF Rx Instructions: do not exceed 3 doses per episode atorvastatin [Lipitor] 40 mg tablet 40 mg PO BEDTIME Qty: 30 5RF albuterol sulfate 90 mcg/actuation HFA aerosol inhaler 2 puff inhalation Q4-6H PRN (Reason: shortness of breath or wheezing) Qty: 6.7 0RF carvedilol 6.25 mg tablet 6.25 mg PO BID Qty: 60 0RF Rx Instructions: must administer with a meal/food omeprazole magnesium 20 mg capsule,delayed release(DR/EC) 20 mg PO DAILY azithromycin 250 mg tablet See Rx Instructions .ROUTE .COMPLEX Rx Instructions: For 250 mg dose pack: take 500 mg today (day 1), then 250 mg for 4 days (days 2-5) metoprolol tartrate 50 mg tablet 50 mg PO BID Qty: 2 0RF Rx Instructions: Take 1 tablet night before and another on morning of CT scan. Print Language: Tajik
--- NOTE | 2023-10-10 07:50 | PC.NURSE ---
Pt reporting he started feeling palpitations starting yesterday, he woke up with them this morning and attempted to go to work but left and came here for bon, clifford CP at this time, just reporting palpitations and intermit SOB. Pt reporting he took 1 sublig nitro at 6am this morning, currently has CRUZ from nitro. Julienies n/v/d.
[2023-10-10 07:55] LABS: Alanine Aminotransferase 42 U/L (0-40); Albumin Level 4.3 g/dL (3.5-5.0); Alkaline Phosphatase 50 U/L (39-117); Anion Gap 11 (12-20); Aspartate Amino Transferase 30 U/L (5-37); Bilirubin Total 0.6 mg/dL (0.0-1.0); Blood Urea Nitrogen 16 mg/dL (9-16); Calcium 9.7 mg/dL (8.4-10.2); Carbon Dioxide 27 mmol/L (22-29); Chloride 109 mmol/L (96-108); Creatinine Clr Calc Pharmacy 93.1; Estimated Glomerular Filt Rate > 60; Glucose Random 94 mg/dL (60-115); Potassium 3.8 mmol/L (3.3-5.1); Sodium 143 mmol/L (135-145); Total Protein 7.2 g/dL (6.5-8.0)
[2023-10-10 08:02] LABS: Troponin-I High Sensitivity 5.1 ng/L (<3.5-35.0)
--- NOTE | 2023-10-10 08:30 | P.CONCA_ITS ---
History of Present Illness History of Present Illness Date of Service: 10/10/23 Chief complaint: chest pain Narrative: This is a cardiology consultation regarding chest discomfort. He was seen in the clinic few weeks back. At that time, he was having some chest pain and shortness of breath type symptoms, off and on. That led to a stress test through his own PCP showing ST depression. Following this, he underwent coronary CTA that did show circumflex stenosis and he was supposed to get a outpatient cardiac catheterization. However, he came to the ER few weeks back with some shortness of breath. Thought to be uncontrolled hypertension. Then he was started on carvedilol. Previously listed to be on metoprolol but apparently was not taking that. Any case, he was trying to move some trash can and in that context, developed discomfort in the chest. He does not believe it is truly pain but something uncomfortable. Then felt short of breath and he thought his heart was racing and hence he came here. So far, troponins are unremarkable and EKGs also not showing any clear-cut ischemic changes. He had some improvement with nitroglycerin. Otherwise feels okay. Currently, symptom free. Review of Systems 2 Review of Systems: Yes all other systems are reviewed and are negative Constitutional: Constitutional: Reports as per HPI and Reports no additional constitutional complaints Eyes: Eyes: Reports as per HPI and Denies no additional eye complaints ENT: Denies system reviewed and no additional complaints, except as documented and Reports as per HPI Cardiovascular: Cardiovascular: Reports as per HPI, Reports no additional cardiovascular complaints, Denies acrocyanosis, Denies cool extremities, Reports chest pain, Denies leg edema, Denies lightheadedness, Reports palpitations and Reports dyspnea Respiratory: Respiratory: Reports as per HPI, Denies no additional respiratory complaints and Reports dyspnea Gastrointestinal: Gastrointestinal: Reports as per HPI and Denies no additional gastrointestinal complaints Genitourinary: Genitourinary: Reports no additional male genitourinary complaints and Reports as per HPI Musculoskeletal: Musculoskeletal: Reports no additional musculoskeletal complaints and Reports as per HPI Integumentary/Breasts: Skin/Breast: Reports system reviewed and no additional complaints, except as docu Neurologic: Reports system reviewed and no additional complaints, except as documented and Reports as per HPI Psychiatric: Psychiatric: Reports no additional psychiatric complaints and Reports as per HPI Endocrine: Endocrine: Reports no additional endocrine complaints, Reports as per HPI and Reports palpitations Hematologic/Lymphatic: Hematologic/Lymphatic: Reports no additional hematologic/lymphatic complaints and Reports as per HPI Allergic/Immunologic: Allergic/Immunologic: Reports no additional allergic/immunologic complaints and Reports as per HPI [facility] Past Medical History Medical History Shortness of breath URI (upper respiratory infection) Precordial chest pain Abnormal stress test Family History Family History (Updated 08/13/23 @ 14:35 by Jennifer Woody) Mother Heart attack Social History Social History Alcohol intake: current Alcohol intake frequency: holidays/special occasions only Patient Tobacco Use Status: Former Tobacco user Smoked in Last 30 Days: No Advance Directives: No Advance Directives Information Provided: Yes Do you have a plan to hurt others: No Plan Meds Allergies Allergy/AdvReac Type Severity Reaction Status Date / Time No Known Allergies Allergy Verified 10/10/23 07:32 [No Known Allergies*] Home Medications ?Medication ?Instructions ?Recorded ?Confirmed ?Last Taken ?Type omeprazole magnesium 20 mg 20 mg PO DAILY 04/27/21 08/13/23 Unknown History capsule,delayed release azithromycin 250 mg tablet See Rx Instructions PO .COMPLEX 08/13/23 08/13/23 Unknown History Physical Exam 2 Vital Signs: Vital Signs: Last Vital Signs Temp 98.4 F 10/10/23 07:24 Pulse 72 10/10/23 07:45 Resp 16 10/10/23 07:45 BP 156/88 H 10/10/23 07:24 Pulse Ox 98 10/10/23 07:45 O2 Del Method Room Air 10/10/23 07:45 BMI result Body Mass Index 29.4 Const: General: comfortable and no acute distress O rientation/consciousness: patient oriented x3 HEENT: Other: Unremarkable Head: Yes normal to inspection Neck: Neck: Yes normal visual inspection Chest: Chest palpation & inspection: normal inspection of the chest Resp: Auscultation: clear to auscultation bilaterally Cardio: Palpation: normal PMI Heart sounds: S1 normal heart sound present, S2 normal heart sound present, no gallops, no murmurs and no rubs GI: Palpation (GI): Soft to palpation Back/Spine/Pelvis: Other: unremarkable Skin: General skin exam: no rashes or lesions noted Neuro: General: patient oriented x3 Extrem: General: Yes normal to inspection Psych: Mental Status: mental status grossly normal Objective Labs and Meds 10/10/23 07:31 10/10/23 07:31 Lab results: Laboratory Results - last 24 hr 10/10/23 07:31 WBC 9.8 RBC 5.52 Hgb 16.8 Hct 48.1 MCV 87.1 MCH 30.4 MCHC 34.9 RDW 13.2 Plt Count 251 MPV 9.6 Immature Gran % (Auto) 0.8 H Neut % (Auto) 69.2 Lymph % (Auto) 20.7 [place] % (Auto) 6.9 Eos % (Auto) 2.1 Baso % (Auto) 0.3 Lymph # (Auto) 2.0 [place] # (Auto) 0.7 Eos # (Auto) 0.2 Baso # (Auto) 0.0 Abs Immat Gran (auto) 0.08 H Absolute Neuts (auto) 6.8 Absolute Nucleated RBC 0.000 Nucleated RBC % (auto) 0.0 Sodium 143 Potassium 3.8 Chloride 109 H Carbon Dioxide 27 Anion Gap 11 L BUN 16 Creatinine 0.96 Estim Creat Clear Calc 93.1 Estimated GFR > 60 Random Glucose 94 Calcium 9.7 Total Bilirubin 0.6 AST 30 ALT 42 H Alkaline Phosphatase 50 Troponin I High Sens 5.1 Total Protein 7.2 Albumin 4.3 ECG Interpretation: EKG with sinus rhythm at 82/Min; no significant ST-T changes and otherwise unremarkable. Normal KS and corrected QT. Assessment and Plan (1) Unstable angina: Status: Acute (2) Atherosclerotic cardiovascular disease: Status: Acute (3) Essential hypertension: Status: Acute Plan Troponins are unremarkable. No evidence of ACS at this time. In the recent coronary CTA performed [facility], calcium score is 425. LAD 236; circumflex 188; left main/RCA/PDA 0. There is moderate to severe stenosis in the circumflex. Mild distal left main narrowing. At least moderate stenosis in the LAD at the origin of 1st diagonal. The plan was to get an outpatient cardiac catheterization but as he has had 2 ER visits in the last few days, we will get it done as an inpatient. Transferred to [facility]. Continue aspirin, carvedilol. Add nitroglycerin patch or paste. Statins. Beyond that, will need adequate blood pressure control and we may be able to start something like amlodipine. Discussed with ER physician. Procedures Date of Service Date of Service: 10/10/23
[2023-10-10 08:35] VITALS: BP 160/83; PULSE 70
[2023-10-10] MEDS: Nitroglycerin 2 % Oint 1 GM Packet 1 INCH TRANSDERMA (08:35)
[2023-10-10 10:00] VITALS: BP 137/80; PULSE 81; RESP 20; O2SAT 96
--- NOTE | 2023-10-10 10:00 | PC.NURSE ---
Nurse to nurse given to [facility] pt to be transferred to [id number].
[2023-10-10 10:45] VITALS: BP 137/80; PULSE 81; RESP 20; TEMP 37; O2SAT 96
== END 2023-10-10 10:46 | disposition short-term general hospital (02) ==
PROVIDERS: Emergency Provider Emergency Medicine; PCP Internal Medicine
DX: R07.2 Precordial pain (principal); R06.02 Shortness of breath; I10 Essential (primary) hypertension; Z87.891 Personal history of nicotine dependence; Z79.82 Long term (current) use of aspirin
CPT/HCPCS: 36415; 80053; 84484; 85025; 93005; 99285

== ENCOUNTER → 2023-10-10 07:30 | Outpatient (BNV) | payer BC, SELFPAY | PROVIDERS: Emergency Provider Emergency Medicine; PCP Internal Medicine; Visit Provider Internal Medicine | DX: I20.0 Unstable angina (principal); I25.10 Atherosclerotic heart disease of native coronary artery without angina pectoris; I10 Essential (primary) hypertension | CPT/HCPCS: 93010; 99223 ==

== ENCOUNTER → 2023-10-10 22:59 | Outpatient (BNV) | payer BC, SELFPAY | PROVIDERS: PCP Internal Medicine; Visit Provider Internal Medicine Cardiovascular Disease | DX: I20.89 Other forms of angina pectoris (principal); R07.9 Chest pain, unspecified | CPT/HCPCS: 93458; 93571; 99152 ==

== ENCOUNTER 2023-11-11 12:26 | Outpatient (AMB) | payer BC, SELFPAY ==
[2023-11-11 13:04] VITALS: BP 124/70; PULSE 70; BMI 27.6
--- NOTE | 2023-11-11 13:04 | MHC.OFFVIS ---
Vital Signs 11/11/23 13:04 Height 6 ft Weight 203 lb 11.314 oz BMI 27.6 BP 124/70 Blood Pressure Location Lt brachial Position Sitting Pulse 70 Pulse Source Pulse Oximeter Intake Visit Reasons: Follow up post cardiac cath [employer] Specialist Required: No Accompanied by: Self / Same As Patient Allergies No Known Allergies [No Known Allergies*] Allergy (Verified 10/10/23 07:32) Medication List - Last Reconciled 11/11/23 by Angelo Patton MD albuterol sulfate 90 mcg/actuation 2 puffs inhalation Q4-6H PRN aspirin 81 mg PO DAILY atorvastatin (Lipitor) 40 mg PO BEDTIME carvedilol 6.25 mg PO BID lisinopril 5 mg PO DAILY nitroglycerin 0.4 mg sublingual Q5M PRN omeprazole magnesium 20 mg PO DAILY HPI Comments Details: Blake returns for follow-up. He was seen in consultation regarding chest pain and shortness of breath. He underwent a stress test through his own PCP and that showed some ST depression. Following this, he underwent coronary CTA that showed moderate to severe stenosis of circumflex as well as some LAD disease. This led to cardiac catheterization, but no interventions performed. Overall, he states generally okay. He gets some palpitations on and off. [facility] Medical History (Updated 10/14/23 @ 17:44 by Marco A Booker MD) Shortness of breath URI (upper respiratory infection) Precordial chest pain Abnormal stress test Surgical History (Updated 11/11/23 @ 13:07 by Alley Bloom CMA) Hx of cardiac cath Family History Mother Heart attack Social History Alcohol intake: current Alcohol intake frequency: holidays/special occasions only Patient Tobacco Use Status: Former Tobacco user Review of Systems Const Denies chills, Denies fatigue, Denies fever(s), Denies frequent falls, Denies weakness, Denies weight gain and Denies weight loss ENT Denies dizziness Card Denies chest pain, Denies leg edema, Denies lightheadedness, Denies palpitations, Denies dyspnea and Denies dyspnea on exertion Resp Denies cough, Denies dyspnea and Denies dyspnea on exertion GI Denies hematochezia Musc Denies abnormal gait, Denies muscle weakness, Denies numbness, Denies radiating pain into limb and Denies tingling Neuro Denies abnormal gait, Denies dizziness, Denies frequent falls, Denies numbness, Denies tingling and Denies weakness Endo Denies fatigue and Denies palpitations Physical Exam Vital Signs: Last Vital Signs Pulse 70 11/11/23 13:04 BP 124/70 11/11/23 13:04 BMI result Body Mass Index 27.6 Const General: comfortable and no acute distress Orientation/consciousness: patient oriented x3 HEENT Other: Unremarkable Head: Yes normal to inspection Neck Neck: Yes normal visual inspection Chest Chest palpation & inspection: normal inspection of the chest Resp Auscultation: clear to auscultation bilaterally Cardio Palpation: normal PMI Heart sounds: S1 normal heart sound present, S2 normal heart sound present, no gallops, no murmurs and no rubs GI Palpation (GI): Soft to palpation Back/Spine/Pelvis Other: unremarkable Skin General skin exam: no rashes or lesions noted Neuro General: patient oriented x3 Extrem General: Yes normal to inspection Psych Mental Status: mental status grossly normal Assessment & Plan Assessment & Plan (1) Atherosclerotic cardiovascular disease: Code(s): I25.10 - Atherosclerotic heart disease of [place] coronary artery without angina pectoris Category: Medical (2) Essential hypertension: Code(s): I10 - Essential (primary) hypertension Category: Medical Plan Cardiac studies reviewed. Echocardiogram with LVEF of 66%. Possible basal inferior wall hypokinesis. Peak global longitudinal strain-17%. Borderline diminished. Cardiac catheterization-09/2023-distal circumflex with 60% stenosis-IFR negative; subtotally occluded RV marginal branch coming off the nondominant right coronary artery-overall, for medical management. Continue long-term aspirin. Continue statins. There is a history of mild LFT abnormality. We will follow-up with repeat lipids as well as LFT panel. Continue beta-blockers. Unsure compliance and hence we can stop the lisinopril and just go up on the Coreg dose, which should help with any angina as well as blood pressure. We discussed about this today. With regard to the palpitations, check Holter. Discussed with family who came for appointment. Orders: Orders Liver Panel Today I25.10 - Atherosclerotic heart disease of [place] coronary artery without angina pectoris Lipid Panel Today E78.5 - Hyperlipidemia, unspecified, I25.10 - Atherosclerotic heart disease of [place] coronary artery without angina pectoris ECG 14 day holter monitor Today R00.2 - Palpitations Medications: New carvedilol (Coreg) must administer with a meal/food 12.5 mg PO BID 90 days 180 tabs 3RF Refilled nitroglycerin do not exceed 3 doses per episode 0.4 mg sublingual Q5M PRN 30 tabs 5RF chest pain Discontinued carvedilol must administer with a meal/food Discontinued Reason: Doctor's Order 6.25 mg PO BID 60 tabs 0RF Coding Level of Care Code Est Pt Level 4 (88927) Diagnoses Atherosclerotic cardiovascular disease I25.10 Essential hypertension I10
== END 2023-11-11 13:26 | disposition home or self-care (01) ==
PROVIDERS: PCP Internal Medicine; Referring Provider Internal Medicine; Visit Provider Internal Medicine
DX: I25.10 Atherosclerotic heart disease of native coronary artery without angina pectoris (principal); I10 Essential (primary) hypertension
CPT/HCPCS: 99214

== ENCOUNTER → 2023-11-11 12:26 | Outpatient (BNVA) | payer BC, SELFPAY | PROVIDERS: PCP Internal Medicine; Visit Provider Internal Medicine ==

== ENCOUNTER → 2023-11-25 13:11 | Outpatient (REF) | payer BC, SELFPAY ==
--- NOTE | 2023-11-25 13:13 | HM_ITS ---
* Total monitoring time 2 weeks. * Underlying rhythm is sinus with an average rate of 70/Min. * Rare supraventricular ectopy. Very brief runs noted. Longest 14 beats. * Rare ventricular ectopy with a burden of 0.4%. One run of 6 beats, monomorphic. * Mobitz 1 second-degree heart block during sleep hours. * Patient marker used in association with sinus rhythm and supraventricular ectopy. * No diary events. MTDD
== END ==
LOC: HO.CARD 13:11
PROVIDERS: PCP Internal Medicine; Visit Provider Internal Medicine
DX: R00.2 Palpitations (principal)
CPT/HCPCS: 93246

== ENCOUNTER → 2023-11-25 13:13 | Outpatient (BNV) | payer BC, SELFPAY | PROVIDERS: PCP Internal Medicine; Visit Provider Internal Medicine | DX: I44.1 Atrioventricular block, second degree (principal); I47.10 Supraventricular tachycardia, unspecified | CPT/HCPCS: 93248 ==

== ENCOUNTER 2024-02-19 09:56 | Outpatient (AMB) | payer MEDICARE, SELFPAY ==
[2024-02-19 10:11] VITALS: BP 130/72; PULSE 72; BMI 28.5
--- NOTE | 2024-02-19 10:11 | MHC.OFFVIS ---
Vital Signs 02/19/24 10:11 Height 6 ft Weight 209 lb 14.081 oz BMI 28.5 BP 130/72 Blood Pressure Location Lt brachial Position Sitting Pulse 72 Pulse Source Pulse Oximeter Intake Visit Reasons: 3 mth f./up holter Digital Account Supervisor Required: No Accompanied by: Daughter Allergies No Known Allergies [No Known Allergies*] Allergy (Verified 10/10/23 07:32) Medication List - Last Reconciled 02/19/24 by Angelo Patton MD albuterol sulfate 90 mcg/actuation 2 puffs inhalation Q4-6H PRN aspirin 81 mg PO DAILY atorvastatin (Lipitor) 40 mg PO BEDTIME carvedilol (Coreg) 12.5 mg PO BID 90 days nitroglycerin 0.4 mg sublingual Q5M PRN omeprazole magnesium 20 mg PO DAILY HPI Comments Details: Blake returns for follow-up. He was initially seen in consultation regarding chest pain and shortness of breath. He underwent a stress test through his own PCP and that showed some ST depression. Following this, he underwent coronary CTA that showed moderate to severe stenosis of circumflex as well as some LAD disease. This led to cardiac catheterization, but no interventions performed. He was having some palpitations but we had increased the beta-blockers and after that, he states he feels fine. No new issues. He is active with no limitations. [facility] Medical History (Updated 02/19/24 @ 10:48 by Angelo Patton MD) TIMOTHY on CPAP Shortness of breath URI (upper respiratory infection) Precordial chest pain Abnormal stress test Surgical History Hx of cardiac cath Family History Mother Heart attack Social History Alcohol intake: current Alcohol intake frequency: holidays/special occasions only Patient Tobacco Use Status: Former Tobacco user Review of Systems Const Denies chills, Denies fatigue, Denies fever(s), Denies weight gain and Denies weight loss ENT Denies dizziness Card Denies chest pain, Denies leg edema, Denies lightheadedness, Denies palpitations, Denies dyspnea on exertion, Denies orthopnea and Denies other Resp Denies cough and Denies dyspnea on exertion GI Denies hematochezia and Denies change in stool character Musc Denies abnormal gait, Denies muscle weakness, Denies numbness, Denies radiating pain into limb and Denies tingling Neuro Denies abnormal gait, Denies dizziness, Denies numbness and Denies tingling Endo Denies fatigue and Denies palpitations Physical Exam Vital Signs: Last Vital Signs Pulse 72 02/19/24 10:11 BP 130/72 02/19/24 10:11 BMI result Body Mass Index 28.5 Const General: comfortable and no acute distress Orientation/consciousness: patient oriented x3 HEENT Other: Unremarkable Head: Yes normal to inspection Neck Neck: Yes normal visual inspection Chest Chest palpation & inspection: normal inspection of the chest Resp Auscultation: clear to auscultation bilaterally Cardio Palpation: normal PMI Heart sounds: S1 normal heart sound present, S2 normal heart sound present, no gallops, no murmurs and no rubs GI Palpation (GI): Soft to palpation Back/Spine/Pelvis Other: unremarkable Skin General skin exam: no rashes or lesions noted Neuro General: patient oriented x3 Extrem General: Yes normal to inspection Psych Mental Status: mental status grossly normal Assessment & Plan Assessment & Plan (1) Atherosclerotic cardiovascular disease: Code(s): I25.10 - Atherosclerotic heart disease of [place] coronary artery without angina pectoris Category: Medical (2) Essential hypertension: Code(s): I10 - Essential (primary) hypertension Category: Medical (3) PAC (premature atrial contraction): Code(s): I49.1 - Atrial premature depolarization Category: Medical (4) PVC (premature ventricular contraction): Code(s): I49.3 - Ventricular premature depolarization Category: Medical (5) TIMOTHY on CPAP: Code(s): G47.33 - Obstructive sleep apnea (adult) (pediatric) Category: Medical Plan Cardiac studies reviewed. Echocardiogram with LVEF of 66%. Possible basal inferior wall hypokinesis. Peak global longitudinal strain-17%. Borderline diminished. Cardiac catheterization-09/2023-distal circumflex with 60% stenosis-IFR negative; subtotally occluded RV marginal branch coming off the nondominant right coronary artery-overall, for medical management. Holter shows underlying sinus rhythm with an average rate of 70/Min; rare supraventricular; rare ventricular ectopy with a single monomorphic run for 6 beats. Mobitz type 1 block during sleep hours. Overall, continue aspirin and statins. Check lipids and LFTs. Continue beta-blockers that seems to be helping with angina as well as palpitations. Continue CPAP for TIMOTHY. Discussed with family. Coding Level of Care Code Est Pt Level 4 (64674) Diagnoses Atherosclerotic cardiovascular disease I25.10 Essential hypertension I10 PAC (premature atrial contraction) I49.1 PVC (premature ventricular contraction) I49.3 TIMOTHY on CPAP G47.33
== END 2024-02-19 10:32 | disposition home or self-care (01) ==
PROVIDERS: PCP Internal Medicine; Visit Provider Internal Medicine
DX: I25.10 Atherosclerotic heart disease of native coronary artery without angina pectoris (principal); I10 Essential (primary) hypertension; I49.1 Atrial premature depolarization; I49.3 Ventricular premature depolarization; G47.33 Obstructive sleep apnea (adult) (pediatric)
CPT/HCPCS: 99214

== ENCOUNTER → 2024-02-19 09:56 | Outpatient (BNVA) | payer MEDICARE, SELFPAY | PROVIDERS: PCP Internal Medicine; Visit Provider Internal Medicine | DX: I25.10 Atherosclerotic heart disease of native coronary artery without angina pectoris (principal); I10 Essential (primary) hypertension; I49.1 Atrial premature depolarization; I49.3 Ventricular premature depolarization; G47.33 Obstructive sleep apnea (adult) (pediatric); Z99.89 Dependence on other enabling machines and devices | CPT/HCPCS: 99212 ==

== ENCOUNTER 2024-04-28 08:00 | Outpatient (REF) | payer MEDICARE, OTHER, SELFPAY ==
--- OUTSIDE RECORDS SUMMARY | 2024-04-28 08:02 | XMS_ITS ---
Author Name [facility] Organization Unknown History of Medication Use Medication Directions Dispensed Refills Start Date End Date Stat iohexol (OMNIPAQUE) 350 mg/mL injection 80 mL 80 mL, Intravenous, Once in imaging, contrast, Starting on Sat09/25/23 at 0951, For 1 dose, Radiology Appointment 09/28/2023 completed nitroglycerin (NITROSTAT) SL tablet 0.4 mg 0.4 mg, Sublingual, Once, On Sat09/25/23 at 0930, For 1 dose, To be administered on the CT table Do not chew, crush, or swallow sublingual tablet. Place under tongue and allow to dissolve. Alternately, may be placed in the buccal pouch. 09/28/2023 completed
[2024-04-28 09:00] LABS: Albumin Level 4.2 g/dL (3.5-5.0); Alkaline Phosphatase 53 U/L (39-117); Aspartate Amino Transferase 39 U/L (5-37); Bilirubin Direct 0.3 mg/dL (0.0-0.5); Cholesterol 148 mg/dL (<200); HDL Cholesterol 31 mg/dL (>40); LDL Cholesterol Calculated 79 mg/dL (<100); Total Protein 7.1 g/dL (6.5-8.0); Triglycerides 193 mg/dL (<150)
[2024-04-28 09:16] LABS: Alanine Aminotransferase 37 U/L (0-40)
== END 2024-04-28 08:01 | disposition home or self-care (01) ==
LOC: HO.LAB 08:00
PROVIDERS: PCP Internal Medicine; Visit Provider Internal Medicine
DX: E78.5 Hyperlipidemia, unspecified (principal); I25.10 Atherosclerotic heart disease of native coronary artery without angina pectoris
CPT/HCPCS: 36415; 80061; 80076

== ENCOUNTER 2024-06-15 14:57 | Outpatient (REF) | payer MEDICARE, OTHER, SELFPAY ==
--- OUTSIDE RECORDS SUMMARY | 2024-06-15 16:31 | XMS_ITS | Encounter Summary ---
Author Organization [facility] Address [address] [place] [address] Care Team Providers Care Dental Professional Name Role Phone System, Provider Not In Primary Care Provider Un available Jaydon Dang MD Primary Care Provider [phone] Encounter Details Date Type Department Care Team (Late st Contact Info) Description 09/24/2023 Scanned Document [address] [address] Radiology, Scan Social History Tobacco Use Types Packs/Day Years Used Date Smoking Tobacco: Never Assessed Sex and Gender Information Value Date Recorded Sex Assigned at Unknown 08/23/2023 1:11 PM EDT Gender Identity Male 08/23/2023 1:11 PM EDT Sexual Orientation Other 08/23/2023 1: 11 PM EDT documented as of this encounter Plan of Treatment Not on file documented as of this encounter Procedures Procedure Name Priority Date/Time Associated Diagnosis Comments HX OUTSIDE ORDER 09/24/2023 documented in this encounter Results * HX OUTSIDE ORDER (09/24/2023) Scan Radiology HX AMB PROCEDURES documented in this encounter Visit Diagnoses Not on filedocumented in this encounter Care Teams Dental Professional Relationship Specialty Start Date End Date System, Provider Not In PCP - General 08/23/23 09/24/23 Jaydon Dang MD [address] [place] [address] [place] [address] PCP - General 09/25/23 documented as of this encounter
--- OUTSIDE RECORDS SUMMARY | 2024-06-15 16:31 | XMS_ITS | Clinical Summary ---
Author Organization [facility] Address [address] [place] [address] Care Team Providers Care Auditing Manager Name Role Phone Jaydon Dang MD Primary Care Provider [phone] Allergies No known active allergies Social History Tobacco Use Types Packs/Day Years Used Date Smoking Tobacco: Never Assessed Sex and Gender Information Value Date Recorded Sex Assigned at Unknown 08/23/2023 1:11 PM EDT Gender Identity Male 08/23/2023 1:11 PM EDT Sexual Orientation Other 08/23/2023 1: 11 PM EDT Last Filed Vital Signs Vital Sign Reading Time Taken Comments Blood Pressure 163/86 09/25/2023 8:59 AM EDT Pulse 64 09/25/2023 8:59 AM EDT Temperature - - Respiratory Rate 16 09/25/2023 8:59 AM EDT Oxygen Saturation 98% 09/25/2023 8:59 AM EDT Inhaled Oxygen Concentration - - Weight - - Height - - Body Mass Index - - Plan of Treatment Health Maintenance Due Date Last Done Comments Hepatitis C Virus Screening 1960 HIV Screening 08/18/1971 DTaP/Tdap/Td Vaccines (1 - Tdap) 1977 Pneumococcal Vaccines 50+ (1 of 2 - PCV) 1977 Pap Smear (Ages 21-65) 08/18/1979 Colonoscopy 08/18/2003 Zoster (Shingles) Vaccine (1 of 2) 2008 RSV Vaccine 60 years and old er and Patients (1 - Risk 60-74 years 1-dose series) 2018 DXA Bone Density (Females,Ag es 65 and older) 08/18/2023 Influenza Vaccine 12/12/2023 COVID-19 Vaccine ( - 2023-2 5 season) 2024 Hepatitis B Vaccines Aged Out No long er eligible based on patient's age to complete this topic Care Teams Auditing Manager Relationship Specialty Start Date End Date Jaydon Dang MD [address] [place] [address] [place] [address] PCP - General 09/25/23
== END 2024-06-15 14:58 | disposition home or self-care (01) ==
LOC: HO.SH 14:57
PROVIDERS: Visit Provider Internal Medicine
DX: Z01.118 Encounter for examination of ears and hearing with other abnormal findings (principal); H90.3 Sensorineural hearing loss, bilateral
CPT/HCPCS: 92557; 92567

== ENCOUNTER 2024-08-24 10:47 | Outpatient (AMB) | payer MEDICARE, OTHER, SELFPAY ==
[2024-08-24 10:49] VITALS: BP 120/76; PULSE 72; TEMP 36.6; O2SAT 98; BMI 28.7
--- NOTE | 2024-08-24 10:49 | MHC.PC.OV ---
Vital Signs 08/24/24 10:49 Height 6 ft Weight 212 lb BMI 28.7 BP 120/76 Blood Pressure Location Lt brachial Position Sitting Pulse 72 Pulse Source Pulse Oximeter Temp 97.9 F Temp Source Axillary Pulse Oximetry (%) 98 Oxygen Delivery Method Room Air Intake Visit Reasons: Routine Dehydrating Press Operator Required: No Accompanied by: Self / Same As Patient Allergies No Known Allergies [No Known Allergies*] Allergy (Verified 08/24/24 10:50) Tobacco use date assessed: 08/24/24 Fall risk assessment: No Falls in past year Last assessed Fall Risk: 08/24/24 Dental Screening Dental Screen Date: 08/24/24 Did you have a dental visit in the last 12 months?: Yes Did you have a dental problem in the last 6 months where you did not have access to dental care?: No [facility] Medical History (Updated 08/24/24 @ 11:20 by Sal Machado MD) Coronary arteriography abnormal Insomnia TIMOTHY on CPAP Shortness of breath URI (upper respiratory infection) Precordial chest pain Abnormal stress test Surgical History Hx of cardiac cath Family History Mother Heart attack Social History Housing: House Alcohol intake: current Alcohol intake frequency: holidays/special occasions only Patient Tobacco Use Status: Former Tobacco user e-Cigarette/Vaping Use: Former Use service: No Current occupational status: retired Cognitive needs: No Hearing needs: No Vision needs: Yes (reading glasses) Questionnaire PHQ-9 Over the last 2 weeks, how often have you been bothered by any of the following problems? 1. Little interest or pleasure in doing things: not at all 2. Feeling down, depressed, or hopeless: not at all 3. Trouble falling or staying asleep, or sleeping too much: not at all 4. Feeling tired or having little energy: not at all 5. Poor appetite or overeating: not at all 6. Feeling bad about yourself - or that you are a failure or have let yourself or your family down: not at all 7. Trouble concentrating on things, such as reading the newspaper or watching television: not at all 8. Moving or speaking so slowly that other people could have noticed. Or the opposite - being so fidgety or restless that you have been moving around a lot more than usual: not at all 9. Thoughts that you would be better off or of hurting yourself in some way: not at all Total score: 0 Source: Developed by Drs. Benjamin Peoples, Angelica Ba, Brandon Durant and colleagues, with an educational mallika from [employer]. Thrive Questionnaire Date Thrive assessed: 08/24/24 I am a: Patient Within the past 12 months, did the food you bought not last and you didn't have the money to get more?: Never true Within the past 12 months, did you worry whether your food would run out before you got money to buy more?: Never true Do you have trouble paying for medicines?: No Do you have trouble getting transportation to medical appointments?: No Do you have trouble paying your heating and electricity bill?: No Do you have trouble taking care of your child, family member or friend?: No Do you have trouble with day-to-day activities such as bathing, preparing meals, shopping, managing finances, etc.?: No Are you currently unemployed and looking for a job?: No Are you interested in more education?: No THRIVE Score: 0 AUDIT C Alcohol Use Questionnaire (AUDIT-C) 1. How often do you have a drink containing alcohol?: Monthly or less 2. How many drinks containing alcohol do you have on a typical day when you are drinking?: 1 or 2 3. How often do you have six or more drinks on one occasion?: Less than monthly Total Score: 2 HUMBERTO-7 AMB Questionnaire HUMBERTO-7 Date HUMBERTO - 7 assessed: 08/24/24 Feeling nervous, anxious, or on edge: 0 = Not at all Not being able to stop or control worryin = Not at all Worrying too much about different things: 0 = Not at all Trouble relaxin = Not at all Being so restless that it is hard to sit still: 0 = Not at all Becoming easily annoyed or irritable: 0 = Not at all Feeling afraid as if something awful might happen: 0 = Not at all Total HUMBERTO-7 score (0-4 normal; 5-9 mild; 10-14 moderate; 15-21 severe): 0 Source: Developed by Drs. Benjamin Peoples, Angelica Ba, Brandon Durant and colleagues, with an educational mallika from [employer]. Physical exam (Primary Care) Vital Signs: Last Vital Signs Temp 97.9 F 08/24/24 10:49 Pulse 72 08/24/24 10:49 BP 120/76 08/24/24 10:49 Pulse Ox 98 08/24/24 10:49 Oxygen Delivery Method Room Air 08/24/24 10:49 BMI result Body Mass Index 28.7 Tobacco/Smoking Status: Tobacco use Status Tobacco use date assessed 08/24/24 08/24/24 10:51 Patient Tobacco Use Status Former Tobacco user 08/24/24 10:51 e-Cigarette/Vaping Use Former Use 08/24/24 10:51 PHQ-9: PHQ-9 Score PHQ-9: Total score 0 08/24/24 10:51 Thrive Assessment: Date of Thrive Assessment Date Thrive assessed 08/24/24 08/24/24 10:51 Coding Level of Care Code New Pt Level 4 (24891) Complex EM visit Add On G2211 Diagnoses Sciatica M54.30 Insomnia G47.00 Atherosclerotic cardiovascular disease I25.10 Essential hypertension I10 Assessment & Plan Assessment & Plan (1) Sciatica: Code(s): M54.30 - Sciatica, unspecified side Plan: Pt has gone thru physical therapy for six weeks, continues to have numbness in the feet. MR has been ordered (2) Insomnia: Code(s): G47.00 - Insomnia, unspecified Category: Medical Plan: Trazodone has been added to the regimen (3) Atherosclerotic cardiovascular disease: Code(s): I25.10 - Atherosclerotic heart disease of [place] coronary artery without angina pectoris Category: Medical Plan: Cardiac cath showed minimal disease. Continue current meds. (4) Essential hypertension: Code(s): I10 - Essential (primary) hypertension Category: Medical Plan: As above. Plan History of Present Illness The patient is a 64-year-old male presenting with chronic low back pain with radiculopathy. His experience of lower back pain dates back several years, with a noted initial magnetic resonance imaging (MRI) conducted in 2010. Approximately five to six months ago, he began experiencing an exacerbation of pain that became more severe and ongoing, affecting the left leg and buttocks with some days worse than others. Although physical therapy has been implemented, it only relieved symptoms partially. Previous severe pain episodes prompted an ambulance visit, during which a ketamine pain relief shot was administered. Recent activities such as travel have exacerbated his symptoms, while exercises alleviate them somewhat. He denies any bowel or bladder control issues. 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 - Lives with . - Engages in golfing and [employer] as recreational activities. - Has been a long-term patient of this practice, approximately 30 years. Review of Systems Physical Exam General: Cooperative and healthy appearing Nutritional Appearance: Well nourished Orientation/consciousness: Patient oriented x3 Limitations: No limitations Head: Normal to inspection General: Appearance normal, both eyes and all related structures Neck: Normal visual inspection Chest: Normal palpation of entire chest wall Respiratory: N ormal respiratory effort Neurology: Patient oriented x3, reports numbness in the bottom of feet, possibly related to sciatica. Results - Cardiac Catheterization: Minor branch irregularities, reported as non-concerning. - Blood work in May was normal. - Colonoscopy noted to be performed every five years by patient recall, most likely under Dr. Berrios at [place]. Plan I plan to order an MRI to evaluate his chronic low back pain with radiculopathy more thoroughly. I will prescribe a muscle relaxant for nighttime, a brief course of anti-inflammatories for pain relief, and continue physical therapy. For his hypertension, current management seems effective, with continued monitoring to prevent further episodes. To address his sleep issues, I will initiate trazodone, with patient guidance on adjusting the dose for better rest. Patient was informed and verbally consented to the use of an ambient scribe for clinic note documentation during this visit. Discussion Notes In today's discussion, I explained the probable chronicity of his low back pain as related to potential degenerative changes, advising an MRI for a detailed evaluation. The plan includes muscle relaxers and anti-inflammatory treatments as interim measures to address discomfort. Trazodone was offered to help establish a regular sleep pattern, discussing the anticipation of possible drowsiness upon waking and suggestions to adjust dosage timing. Safe continuation of current hypertension medications and assurance were given. We discussed further follow-ups contingent on the MRI findings and maintaining physical activity within his tolerated limits. Patient Instructions - Schedule and attend the ordered MRI for lower back evaluation. - Take prescribed muscle relaxants at night and anti-inflammatory medications as directed. - Continue physical therapy exercises regularly. - Start trazodone for sleep, monitoring any side effects such as morning drowsiness. - Maintain regular use of CPAP machine for sleep apnea. - Monitor blood pressure regularly and report any significant changes. - Keep physically active with golf and horseshoes as tolerated, avoiding exacerbating activities. - Contact the pharmacy when medication refills are due. - Follow up with any changes in pain, symptoms, or for follow-up on MRI results. Orders: Orders MR lumbar spine w con Today M54.30 - Sciatica, unspecified side Medications: New trazodone 100 mg PO BEDTIME 90 days PRN 90 tabs 1RF sleep meloxicam 15 mg PO DAILY 14 tabs 0RF
--- OUTSIDE RECORDS SUMMARY | 2024-08-24 12:36 | XMS_ITS | Clinical Summary ---
Author Organization [facility] Address [address] [place] [address] Care Team Providers Care Laborer Cheesemaking Name Role Phone Jaydon Dang MD Primary Care Provider [phone] Allergies No known active allergies Social History [...] Done Comments Hepatitis C Virus Screening 1960 DTaP/Tdap/Td Vaccines (1 - Tdap) 1977 Colonoscopy 08/18/2003 Pneumococcal Vaccines 50+ (1 of 1 - PCV) 2008 Zoster (Shingles) Vaccine (1 of 2) 2008 RSV Vaccine 60 years and old er and Patients (1 - Risk 60-74 years 1-dose series) 2018 DXA Bone Density (Females,Ag es 65 and older) 08/18/2023 Influenza Vaccine 12/12/2023 COVID-19 Vaccine ( - 2023-2 5 season) 2024 Hepatitis B Vaccines Aged Out No long er eligible based on patient's age to complete this topic Care Teams Laborer Cheesemaking Relationship Specialty Start Date End Date Jaydon Dang MD [address] [place] [address] [place] [address] PCP - General 09/25/23
--- OUTSIDE RECORDS SUMMARY | 2024-08-24 12:36 | XMS_ITS | Encounter Summary ---
Author Organization [facility] Address [address] [place] [address] Care Team Providers Care Insurance Solicitor Name Role Phone System, Provider Not In Primary Care Provider Un available Jaydon Dang MD Primary Care Provider [phone] Encounter Details Date Type Department Care Team (Late st Contact Info) Description 09/24/2023 Scanned Document [address] [address] Radiology, Scan Social History Tobacco [...] on filedocumented in this encounter Care Teams Insurance Solicitor Relationship Specialty Start Date End Date System, Provider Not In PCP - General 08/23/23 09/24/23 Jaydon Dang MD [address] [place] [address] [place] [address] PCP - General 09/25/23 documented as of this encounter
== END 2024-08-24 11:11 | disposition home or self-care (01) ==
PROVIDERS: PCP Internal Medicine; Visit Provider Internal Medicine
DX: M54.30 Sciatica, unspecified side (principal); G47.00 Insomnia, unspecified; I25.10 Atherosclerotic heart disease of native coronary artery without angina pectoris; I10 Essential (primary) hypertension

== ENCOUNTER → 2024-08-24 10:47 | Outpatient (BNVA) | payer MEDICARE, OTHER, SELFPAY | PROVIDERS: PCP Internal Medicine; Visit Provider Internal Medicine | DX: M54.30 Sciatica, unspecified side (principal); G47.00 Insomnia, unspecified; I25.10 Atherosclerotic heart disease of native coronary artery without angina pectoris; I10 Essential (primary) hypertension | CPT/HCPCS: 99202 ==

== ENCOUNTER 2024-08-28 07:51 | Outpatient (RCR) | payer MEDICARE, OTHER, SELFPAY ==
--- NOTE | 2024-07-15 11:41 | MHC.PT.EP ---
[facility] [place] Office [place] Office [place] Office [address] Veronica Copeland [address] [phone] F: [phone] F: [phone] F: [phone] F: [phone] Physical Therapy Plan of Care Date of Evaluation: 07/15/24 Date of Surgery: NA Diagnosis: L LOWER LEG PAIN Assessment: Pt IS 63 YO M REFERRED TO PT FROM DR CARPENTER WITH L LOWER LEG PAIN. Pt REPORTS CHRONIC BACK PAIN (SEEMINGLY L LE PAIN IS REFERRED PX).Pt HAS NOT HAD ANY DIAGNOSTIC TESTING (REPORTS SOME SORT OF BACK SRGERY 10 YRS AGO WITH RELIEF). PRESENTS WITH ANTALGIC GT (DECREASED STANCE TIME LLE) WITH C/O B FOOT NUMBNESS ( UNSURE WHY ..HAS NOT SEEN NEUROLOGIST), TIGHT LUMBAR PARASPINALS, DECREASED CORE STRENGTH, DECREASED LE FLEXIBILITY. HAD PT IN DISTANT PAST WITH SOME RELIEF. OF NOTE, Pt REPORTS R SHOULDER PAIN AND HX OF NECK SURGERY. Frequency and Duration: The patient will be seen 2X/WK X 6 WKS Short Term Goals: 1. INCREASED AWARENESS OF BACK CARE AND POSTURE 2. Pt TO PERFORM 2-3 TASKS WITH PROPER BODY MECHANICS 3. CENTRALIZE SXS Custodial Goals: 1. DECREASED LBP AT LEAST 50% WITH ADLS 2. I HEP WITH DC EX PROGRAM 3. IMPROVED LEFI (48/80 AT SOC) Treatment Plan: Modalities to reduce pain, spasms and effusion. Manual therapy to restore motion and function. Therapeutic exercise to improve strength and flexibility. Neuromuscular re-education for posture and balance. Therapeutic activities to return to functional activities of daily living. Electronically signed by: JAIME GUZMAN PT Please sign and return to therapist. Thank you for your referral.
--- NOTE | 2024-09-01 10:52 | MHC.PT.DC ---
[facility] [place] Office [place] Office [place] Office [address] Veronica Copeland [address] [phone] F: [phone] F: [phone] F: [phone] F: [phone] Physical Therapy Discharge Report Diagnosis: L LOWER LEG PAIN Date of Surgery: NA Date of Evaluation: 07/15/24 Date of Discharge: 09/01/24 Treatments to Date: 10 Cancellations to Date: No Shows to Date: Discharge Status: Achieved Goals Improved Function Independent with HEP Recommend MD Follow-up Discharge Summary: ASSESSMENT FROM LAST VISIT ON 08/28/24 'PT DEMONSTRATED GOOD UNDERSTANDING OF HEP. PT PROGRESSED TO CORE STABILIZING EXERCISES AND WAS GIVEN PICTURES AND A BAND TO CONINUE THEM AT HOME. MINOR FATIGUE OBSERVED DURING CORE EXERCISES.Pt has Met all goals' CONTINUES WITH PAIN AND ANTALGIC/NEUROLOGIC TYPE GT PATTERN. RECOMMEND NEURO CONSULT Electronically signed by: JAIME GUZMAN PT Please sign and return to therapist. Thank you for your referral.
== END 2024-09-01 10:52 | disposition home or self-care (01) ==
LOC: HO.PT 07:51
PROVIDERS: PCP Internal Medicine; Visit Provider Internal Medicine
DX: M79.662 Pain in left lower leg (principal)
CPT/HCPCS: 97110; 97140; 97161; 97530; 97535

== ENCOUNTER 2024-09-16 18:40 | Outpatient (REF) | payer MEDICARE, OTHER, SELFPAY ==
--- NOTE | ~2024-09-16 | MR_ITS ---
EXAMINATION: MR LUMBAR SPINE WITHOUT CONTRAST CLINICAL INFORMATION: Left leg sciatica. Low back pain. Previous intervention COMPARISON: MRI lumbar spine 03/27/2011 and lumbar spine x-ray the 2019 TECHNIQUE: MRI of the lumbar spine was obtained using routine sequences without contrast. FINDINGS: There is normal lumbar lordosis. The vertebral heights are normal. There is grade 1 retrolisthesis L4 over L5. Rest of the vertebral alignment is normal. There is loss of disc height at L3-4, L4-5 and L5-S1 disc levels. At T12-L1, L1-2 there is no significant disc bulge, herniation or spinal canal stenosis. At L2-3 disc level there is minimal bulge without disc herniation or spinal canal stenosis. The neural foramina are mildly narrowed bilaterally secondary to moderate bilateral facet joint and ligamentum flavum hypertrophy. At L3-4 disc level there is disc bulge/osteophyte complex resulting in moderate to severe AP canal stenosis. There is underlying moderate to severe bilateral facet joint hypertrophy and arthropathy resulting in bilateral moderate narrowing of neural foramina. At L4-5 disc level there is mild diffuse bulge/osteophyte complex resulting in mild canal stenosis and bilateral moderate narrowing of neural foramina. Inferior endplate Schmorl's node at L4 vertebra. At L5-S1 disc level there is a broad-based diffuse bulge without spinal canal stenosis. The neural foramina are patent bilaterally. The paravertebral soft tissues are normal. There are inferior endplate Schmorl's node L3 and L4 vertebra otherwise rest the bone marrow signal is normal. Conus medullaris terminates at T12-L1 disc level and appears normal in morphology. There is venous engorgement in the lower lumbar spinal canal posterior to L4 vertebra secondary to spinal canal stenosis. MR/MR lumbar spine wo con IMPRESSION: Degenerative disc bulge/osteophyte complex at L3-4 and L4-5 disc levels with severe canal stenosis L3-4 and moderate canal stenosis at L4-5 disc level. There is underlying bilateral facet joint and ligament flavum hypertrophy resulting in moderate to severe neural foraminal narrowing bilaterally. Electronically signed by: Curly Thomas MD 09/17/2024 07:22 AM EDT
== END 2024-09-16 18:41 | disposition home or self-care (01) ==
LOC: HO.MRI 18:40
PROVIDERS: PCP Internal Medicine; Visit Provider Internal Medicine
DX: M54.30 Sciatica, unspecified side (principal)
CPT/HCPCS: 72148

== ENCOUNTER → 2024-09-16 18:48 | Outpatient (BNV) | payer MEDICARE, OTHER, SELFPAY | PROVIDERS: PCP Internal Medicine; Visit Provider Radiology Diagnostic Radiology | DX: M51.360 Other intervertebral disc degeneration, lumbar region with discogenic back pain only (principal); M99.63 Osseous and subluxation stenosis of intervertebral foramina of lumbar region | CPT/HCPCS: 72148 ==

== ENCOUNTER 2024-09-28 10:05 | Outpatient (AMB) | payer MEDICARE, OTHER, SELFPAY ==
--- OUTSIDE RECORDS SUMMARY | 2024-09-28 10:34 | XMS_ITS | Encounter Summary ---
Author Organization [facility] Address [address] [place] [address] Care Team Providers Care Biotech Production Specialist Name Role Phone System, Provider Not In Primary Care Provider Un available Jaydon Dang MD Primary Care Provider [phone] Encounter Details Date Type Department Care Team (Late st Contact Info) Description 09/24/2023 Scanned Document [address] [place] [id number] Radiology, Scan Social History Tobacco Use Types Packs/Day Years Used Date Smoking Tobacco: Never Assessed Comments Unknown Sex and Gender Information Value Date Recorded Sex Assigned at Unknown 08/23/2023 1:11 PM EDT Legal Sex Male 7:05 PM EST Gender Identity Male 08/23/2023 1:11 PM EDT Sexual Orientation Other 08/23/2023 1: 11 PM EDT documented as of this encounter Plan of Treatment Not on file documented as of this encounter Procedures Procedure Name Priority Date/Time Associated Diagnosis Comments HX OUTSIDE ORDER 09/24/2023 documented in this encounter Results * HX OUTSIDE ORDER (09/24/2023) us Scan Radiology HX AMB PROCEDURES Final Result documented in this encounter Visit Diagnoses Not on filedocumented in this encounter Care Teams Biotech Production Specialist Relationship Specialty Start Date End Date System, Provider Not In PCP - General 08/23/23 09/24/23 Jaydon Dang MD [address] [place] [address] [place] [address] PCP - General 09/25/23 documented as of this encounter
--- OUTSIDE RECORDS SUMMARY | 2024-09-28 10:34 | XMS_ITS | Clinical Summary ---
Author Organization [facility] Address [address] [place] [address] Care Team Providers Care Special Education Paraeducator Name Role Phone Jaydon Dang MD Primary Care Provider [phone] Allergies No known active allergies Social History [...] Density (Females,Ag es 65 and older) 08/18/2023 COVID-19 Vaccine ( - 2023-2 5 season) 2024 Influenza Vaccine 12/11/2024 Hepatitis B Vaccines Aged Out No long er eligible based on patient's age to complete this topic Insurance [facility] - HMO Care Teams Special Education Paraeducator Relationship Specialty Start Date End Date Jaydon Dang MD [address] [place] [address] [place] [address] PCP - General 09/25/23
--- NOTE | 2024-09-28 11:19 | A.SPINEOV_ITS ---
Intake Visit Reasons: spinal stenosis Intake Note: Mr. Fuentes is here today c/o low back pain. MRI done @ [facility] [place]. Branch Banker Required: No Allergies No Known Allergies [No Known Allergies*] Allergy (Verified 08/24/24 10:50) Assessment & Plan Assessment & Plan (1) Lumbar stenosis: Code(s): M48.061 - Spinal stenosis, lumbar region without neurogenic claudication Category: Medical Plan Dear dR Machado, Thank you for referring MR Fuentes to our office today. He is a very nice 64-year-old gentleman with previous history of lumbar surgery done many many years ago, also had ACDF done many many years ago for neck injury, presents for evaluation of a left-sided lumbar radiculopathy that started about 6 months ago. He has tells me that it starts in the left side of his low back radiates into his left buttock down into his posterolateral calf and posterolateral thigh. It is aggravated with standing walking and gets better when he sits down but does not go away completely. He does get tingling on the bottom of his feet as well. It has gotten to the point now where he can barely participate in any activities that he enjoys such as golf and horseshoes. When he has to walk to the ball when he is playing golf it is intensely painful. When he is trying to do yd work and simple things around the house very similar discomfort. He has tried tudu-kem-gugxniw medications like Tylenol and Motrin. He has done physical therapy which seemed to help a little. He underwent an MRI showing severe stenosis at L3-4 and moderate stenosis at L4-5. PMH: History of hypertension, history of high cholesterol, he did have some kind of tachycardia related syndrome that he believes was related to elevated blood pressure. He underwent an extensive workup and they did not find any significant blockages or arrhythmias. Apparently it responded to carvedilol very nicely and he has been stable ever since. History of GERD, low back surgery and anterior cervical fusion twice. It sounds like 1 of those was for spinal cord injury. Denies any pulmonary, liver, kidney, cancer, bleeding disorders, blood clots or major abdominal surgery Social hx: Quit smoking in 1991, occasionally has some beers when he is playing golf, no marijuana Medications: Carvedilol, low-dose aspirin, atorvastatin, omeprazole, nitro Allergies: None Physical exam: Awake alert oriented no acute distress, he has an antalgic gait and a slight Trendelenburg gait. He has weakness of his tibialis bilaterally, worse on the left. Reflexes are diminished at the patella and the Achilles bilaterally. Imaging review: Lumbar MRI done at [facility] [place] shows multilevel degenerative disc disease with severe stenosis at L3-4 as well as moderate stenosis at L4-5. It does look like there could be some compression of the L5 nerve in the lateral recess. Impression: 64-year-old male with previous history of lumbar surgery at some point maybe 30 years ago or more, presents for evaluation of claudicating left leg pain with an antalgic gait, Trendelenburg gait and some weakness of his tibialis. He has severe stenosis at L3-4 and moderate stenosis at L4-5 with what I believe to be some compression in the left lateral recess and the L5 nerve root. I think he would be a great candidate for surgery. We did discuss simple hemilaminotomy decompression on the left side. I will need to review with Dr. Wong to get a final plan in place but I think he will agree with me he is a good candidate given his symptoms and failure of conservative treatment. Once I have a final plan in place I will call him. Thank you for allowing us to care for your patient. The total time spent with this visit with this patient was 45 minutes reviewing history, physical exam, lumbar imaging review, and implementation of treatment plan or further diagnostic testing Mynor Wong MD,PhD [facility] Coding Level of Care Code New Pt Level 4 (50079) Diagnoses Lumbar stenosis M48.061
== END 2024-09-28 11:42 | disposition home or self-care (01) ==
LOC: HO.HNS 10:05
PROVIDERS: PCP Internal Medicine; Referring Provider Internal Medicine; Visit Provider Physician Assistant
DX: M48.061 Spinal stenosis, lumbar region without neurogenic claudication (principal)
CPT/HCPCS: 99204

== ENCOUNTER → 2024-09-28 10:05 | Outpatient (BNVA) | payer MEDICARE, OTHER, SELFPAY | PROVIDERS: PCP Internal Medicine; Visit Provider Physician Assistant | DX: M48.061 Spinal stenosis, lumbar region without neurogenic claudication (principal) | CPT/HCPCS: 99202 ==

== ENCOUNTER 2024-10-13 12:10 | Outpatient (AMB) | payer MEDICARE, SELFPAY ==
--- NOTE | 2024-10-13 12:34 | MHC.OFFVIS ---
Vital Signs 10/13/24 12:36 Height 6 ft Weight 210 lb BMI 28.5 BP 110/60 Blood Pressure Location Lt brachial Position Sitting Pulse 66 Pulse Source Monitor Intake Visit Reasons: 6 mth f/up Allergies No Known Allergies [No Known Allergies*] Allergy (Verified 08/24/24 10:50) Medication List - Last Reconciled 10/13/24 by Angelo Patton MD albuterol sulfate 90 mcg/actuation 2 puffs inhalation Q4-6H PRN aspirin 81 mg PO DAILY atorvastatin 40 mg PO BEDTIME carvedilol 12.5 mg PO BID nitroglycerin 0.4 mg sublingual Q5M PRN omeprazole magnesium 20 mg PO DAILY HPI Comments Details: Blake returns for follow-up. He was initially seen in consultation regarding chest pain and shortness of breath. He underwent a stress test through his own PCP and that showed some ST depression. Following this, he underwent coronary CTA that showed moderate to severe stenosis of circumflex as well as some LAD disease. This led to cardiac catheterization, but no interventions performed. He was having some palpitations but we had increased the beta-blockers and after that, he states he feels fine. No new cardiac symptoms. He is having pain related to sciatica and plans to go for back surgery soon. [facility] Medical History (Updated 10/13/24 @ 12:47 by Angelo Patton MD) Coronary arteriography abnormal Insomnia TIMOTHY on CPAP Shortness of breath URI (upper respiratory infection) Precordial chest pain Abnormal stress test Surgical History (Updated 08/24/24 @ 18:35 by Sal Machado MD) History of colonoscopy (10/30/18) Hx of cardiac cath Family History Mother Heart attack Social History Housing: House Alcohol intake: current Alcohol intake frequency: holidays/special occasions only Patient Tobacco Use Status: Former Tobacco user e-Cigarette/Vaping Use: Former Use service: No Current occupational status: retired Cognitive needs: No Hearing needs: No Vision needs: Yes (reading glasses) Review of Systems Const Denies weakness ENT Denies dizziness Card Denies chest pain, Denies chest pain with activity, Denies syncope, Denies rapid heart rate, Denies pedal edema, Denies edema, Denies leg edema, Denies lightheadedness, Denies palpitations, Denies dyspnea, Reports dyspnea on exertion and Denies orthopnea Resp Denies cough, Denies dyspnea and Reports dyspnea on exertion GI Denies hematochezia and Denies change in stool character Musc Denies abnormal gait, Denies muscle cramps, Denies muscle weakness, Denies numbness, Denies radiating pain into limb and Denies tingling Neuro Denies abnormal gait, Denies dizziness, Denies syncope, Denies numbness, Denies tingling and Denies weakness Endo Denies palpitations Physical Exam Vital Signs: Last Vital Signs Pulse 66 10/13/24 12:36 BP 110/60 10/13/24 12:36 BMI result Body Mass Index 28.5 Const General: comfortable and no acute distress Orientation/consciousness: patient oriented x3 HEENT Other: Unremarkable Head: Yes normal to inspection Neck Neck: Yes normal visual inspection Chest Chest palpation & inspection: normal inspection of the chest Resp Auscultation: clear to auscultation bilaterally Cardio Palpation: normal PMI Heart sounds: S1 normal heart sound present, S2 normal heart sound present, no gallops, no murmurs and no rubs GI Palpation (GI): Soft to palpation Back/Spine/Pelvis Other: unremarkable Skin General skin exam: no rashes or lesions noted Neuro General: patient oriented x3 Extrem General: Yes normal to inspection Psych Mental Status: mental status grossly normal Office Procedures EKG Details: EKG with underlying sinus rhythm at 66/Min; no ischemic findings; [place]. [id number], Complete Assessment & Plan Assessment & Plan (1) Atherosclerotic cardiovascular disease: Code(s): I25.10 - Atherosclerotic heart disease of [place] coronary artery without angina pectoris Category: Medical (2) Essential hypertension: Code(s): I10 - Essential (primary) hypertension Category: Medical (3) PAC (premature atrial contraction): Code(s): I49.1 - Atrial premature depolarization Category: Medical (4) PVC (premature ventricular contraction): Code(s): I49.3 - Ventricular premature depolarization Category: Medical (5) TIMOTHY on CPAP: Code(s): G47.33 - Obstructive sleep apnea (adult) (pediatric) Category: Medical (6) Preoperative cardiovascular examination: Code(s): Z01.810 - Encounter for preprocedural cardiovascular examination Category: Medical Plan Cardiac studies reviewed. Echocardiogram with LVEF of 66%. Possible basal inferior wall hypokinesis. Peak global longitudinal strain-17%. Borderline diminished. Cardiac catheterization-09/2023-distal circumflex with 60% stenosis-IFR negative; subtotally occluded RV marginal branch coming off the nondominant right coronary artery-overall, for medical management. Holter shows underlying sinus rhythm with an average rate of 70/Min; rare supraventricular; rare ventricular ectopy with a single monomorphic run for 6 beats. Mobitz type 1 block during sleep hours. Overall, can treat a stable coronary disease. He is on long-term aspirin. Continue statins. Somewhat variable LDLs. Last time 102. Prior to that, 79. Triglycerides on the slightly higher side at 178. He has mild but chronic LFT abnormality. He states that because of joint pains he briefly stopped taking statins but now he is back on them. May recheck. If necessary, consider adding Zetia. Continue beta-blockers that seems to be helping with angina as well as palpitations. Continue CPAP for TIMOTHY. With regard to back surgery, intermediate cardiac risk. Risk of perioperative myocardial infarction discussed. Discussion Notes I discussed with the patient potential procedural risks for the planned spinal surgery, including cardiovascular events such as heart attack. I emphasized continuing statin therapy despite joint pain complaints to manage hyperlipidemia. I informed him of scheduled labs to evaluate cholesterol levels. Risks and anticipated outcomes were thoroughly discussed. I advised on continuing medication regimens and monitoring dyspnea with exertion. Consent was obtained, ensuring the patient understood the interventions, alternatives, and associated risks. Patient was informed and verbally consented to the use of an ambient scribe for clinic note documentation during this visit. Orders: Orders Lipid Panel Today E78.5 - Hyperlipidemia, unspecified, I25.10 - Atherosclerotic heart disease of [place] coronary artery without angina pectoris Liver Panel Today I25.10 - Atherosclerotic heart disease of [place] coronary artery without angina pectoris Patient Instructions: - Continue taking statin medication as prescribed. - Schedule and complete lab work - Be aware of the potential risks associated with upcoming spinal surgery. - Notify the clinic immediately if chest pain or significant breathlessness occurs. Coding Level of Care Code Est Pt Level 4 (27318) Complex EM visit Add On G2211 Diagnoses Atherosclerotic cardiovascular disease I25.10 Essential hypertension I10 PAC (premature atrial contraction) I49.1 PVC (premature ventricular contraction) I49.3 TIMOTHY on CPAP G47.33 Preoperative cardiovascular examination Z01.810 CPT Codes EKG - CPT: 00775-Nriuyxobamqwxkoin, Complete ([id number])
[2024-10-13 12:36] VITALS: BP 110/60; PULSE 66; BMI 28.5
--- OUTSIDE RECORDS SUMMARY | 2024-10-13 13:37 | XMS_ITS | Patient Health Record ---
Author Organization [facility] [place] Address [address] [facility] [place] [address] Care Team Providers Care Formula Mixer Name Role Phone Jaydon Dang MD Primary Care Provider Garth Stokes Unavailable [phone] Reason For Referral No Information Medications Medication [...] Status Risk Notes Problem Plantar fascial fibromatosis ([id number]) Plantar fascial fibromatosis (M72.2) Active confirmed Plan Of Treatment No Information Insurance Providers Payer Name Payer Address Payer Phone Subscriber Number Group Number Insured Name Patient Relationship to Insured Coverage Start Date Coverage End Date [facility] [address] [place] [address] [phone] [id number] Tayler Fuentes Spouse - patient is the spouse of the insured Medical (General) History Medical History History ICD Code Neuropathy Reflux Cholesterol Surgical History Surgery Date(Month/Year) neck surgery 1999 back surgery 2009
== END 2024-10-13 13:07 | disposition home or self-care (01) ==
LOC: HO.HCS 12:11
PROVIDERS: PCP Internal Medicine; Visit Provider Internal Medicine
DX: I25.10 Atherosclerotic heart disease of native coronary artery without angina pectoris (principal); I10 Essential (primary) hypertension; I49.1 Atrial premature depolarization; I49.3 Ventricular premature depolarization; G47.33 Obstructive sleep apnea (adult) (pediatric); Z01.810 Encounter for preprocedural cardiovascular examination
CPT/HCPCS: 93010; 99214; G2211

== ENCOUNTER → 2024-10-13 12:10 | Outpatient (BNVA) | payer MEDICARE, SELFPAY | PROVIDERS: PCP Internal Medicine; Visit Provider Internal Medicine | DX: Z01.810 Encounter for preprocedural cardiovascular examination (principal); I25.10 Atherosclerotic heart disease of native coronary artery without angina pectoris; I10 Essential (primary) hypertension; I49.1 Atrial premature depolarization; I49.3 Ventricular premature depolarization; G47.33 Obstructive sleep apnea (adult) (pediatric); E78.5 Hyperlipidemia, unspecified | CPT/HCPCS: 93005; 99212 ==

== ENCOUNTER 2024-11-11 05:48 | Day surgery (SDC) | payer MEDICARE, OTHER, SELFPAY ==
--- OUTSIDE RECORDS SUMMARY | 2024-10-12 13:20 | XMS_ITS | Patient Health Record ---
Author Organization [facility] Address [address] [facility] [place] [address] Care Team Providers Care Placement Manager Name Role Phone Jaydon Dang MD Primary Care Provider Lauryna Garth Goodrich Unavailable [phone] Reason For Referral No Information Medications Medication SIG (Take, Route, Frequency, Duration) Notes Start Date End Date Status Gemfibrozil 600 MG 1 tablet Orally Twic e a day Active Atorvastatin Calcium 40 MG 1 tablet Oral ly Once a day Active Omeprazole Active Social History Tobacco use other than smoking: Question Answer Notes Are you an other tobacco user? No Problems Problem Type SNOMED Code ICD Code Onset Dates Problem Status W/U Status Risk Notes Problem Plantar fascial fibromatosis (M72.2) Active confirmed Plan Of Treatment No Information Insurance Providers Payer Name Payer Address Payer Phone Subscriber Number Group Number Insured Name Patient Relationship to Insured Coverage Start Date Coverage End Date [facility] [address] [place] [address] [id number] Tayler Fuentes Spouse - patient is the spouse of the insured Medical (General) History Medical History History ICD Code Neuropathy Reflux Cholesterol Surgical History Surgery Date(Month/Year) neck surgery 1999 back surgery 2009
[2024-10-28 09:33] VITALS: BMI 28.5
--- NOTE | 2024-10-28 13:11 | HO.ANESPROP2 ---
Documented by User: Tracy Davis NP 11/10/24 08:23 HPI - Anesthesia Eval Consult details Narrative: 64yo M for Left L3-4,L4-5 Lumbar Decompression, 11/11/24 Cardiac optimized per 10/2024 office visit Follows [facility] Cardiology for hx CP with abn stress test -> coronary CTA 09/2023 showed moderate to severe stenosis of circumflex with some LAD disease -> cardiac cath 09/2023, no intervention performed (iFR circumflex 0.94-not significant for ischemia. Subtotal occlusion of RV marginal branch-for medical management.) [facility]LY [facility] Active Problems Active Problems: All Active Problems Preoperative cardiovascular examination (Acute) Lumbar stenosis (Acute) PVC (premature ventricular contraction) (Acute) PAC (premature atrial contraction) (Acute) Stable angina (Acute) Atherosclerotic cardiovascular disease (Acute) Unstable angina (Acute) Essential hypertension (Acute) Insomnia (Acute) TIMOTHY on CPAP (Acute) Shortness of breath (Acute) Past Medical History Medical History Back pain Arthritis GERD (gastroesophageal reflux disease) Neuropathy Elevated cholesterol HTN (hypertension) Coronary arteriography abnormal Insomnia TIMOTHY on CPAP Shortness of breath URI (upper respiratory infection) Precordial chest pain Abnormal stress test Family History Family History Mother Heart attack Surgical History Surgical History Hx of neck surgery History of back surgery History of colonoscopy (10/30/18) Hx of cardiac cath Social History Social History Housing: House Alcohol intake: current Alcohol intake frequency: holidays/special occasions only Patient Tobacco Use Status: Former Tobacco user e-Cigarette/Vaping Use: Former Use Use of substances other than those prescribed or required for medical reasons: No Have you been hit, kicked, punched, or otherwise hurt by someone within the past year? If so, by whom?: No Are you DNR?: No Advance Directives: No Advance Directives Information Provided: Yes Advance Directives on File: No Poor oral hygiene: No service: No Current occupational status: retired Cognitive needs: No Hearing needs: No Vision needs: Yes (reading glasses) Meds Allergies Allergy/AdvReac Type Severity Reaction Status Date / Time No Known Allergies (No Known Allergy Verified 08/24/24 10:50 Allergies*) Home Medications ?Medication ?Instructions ?Recorded ?Confirmed ?Last Taken ?Type omeprazole magnesium 20 mg 20 mg PO DAILY 04/27/21 10/28/24 11/11/24 History capsule,delayed release acetaminophen 500 mg tablet 1,000 mg PO Q6H PRN Pain 10/28/24 10/28/24 Unknown History ibuprofen 200 mg tablet 400 mg PO Q6H PRN Pain 10/28/24 10/28/24 11/04/24 History Exam Height,Weight and Vital Signs: Height 6 ft Weight 95.254 kg Pertinent Lab Results Pertinent Lab Results: Laboratory Tests 05/30/24 08:08 WBC 7.6 Hgb 16.6 Hct 48.1 Plt Count 266 Sodium 142 Potassium 4.4 Chloride 108 Carbon Dioxide 29 BUN 17 H Creatinine 0.84 Narrative Narrative: EKG 10/2024 EKG Details: EKG with underlying sinus rhythm at 66/Min; no ischemic findings; normal RI and corrected QT. Holter 2023 Total monitoring time 2 weeks. Underlying rhythm is sinus with an average rate of 70/Min. Rare supraventricular ectopy. Very brief runs noted. Longest 14 beats. Rare ventricular ectopy with a burden of 0.4%. One run of 6 beats, monomorphic. Mobitz 1 second-degree heart block during sleep hours. Patient marker used in association with sinus rhythm and supraventricular ectopy. No diary events. ECHO 2023 Conclusions: - The left ventricular systolic function is normal. The calculated ejection fraction is 66% by biplane method. - No obvious valvular pathology seen on this study. Cardiac Cath 09/2023 Conclusions Diagnostic Summary 63-year-old gentleman presenting with palpitations and dyspnea along with some chest discomfort. This is second visit to the emergency department. He has been referred to us for diagnostic angiography. Hemodynamics: Mild elevated systemic pressures. Normal LVEDP. There is no gradient across aortic valve pullback. Coronary anatomy: Left dominant circulation. There is subtotally occluded RV marginal branch coming off the nondominant right coronary artery. Distal circumflex has 60% stenosis which we decided to perform IFR on. Mild disease in the LAD. Diagnostic Recommendations iFR circumflex. Interventional Summary iFR circumflex 0.94-not significant for ischemia. Subtotal occlusion of RV marginal branch-for medical management. Interventional Recommendations Continue aspirin 81 mg indefinitely. Aggressive secondary risk factor modification according to ATP III guidelines. Monitor blood pressure and titrate medications. Will arrange cardiac event monitor to rule out any arrhythmia. Assessment and Plan Assessment Anesthesia Assessment: Chart Reviewed Documented by User: Emmy Ramirez MD 11/11/24 08:04 [facility] Past Medical History Medical History Back pain Arthritis GERD (gastroesophageal reflux disease) Neuropathy Elevated cholesterol HTN (hypertension) Coronary arteriography abnormal Insomnia TIMOTHY on CPAP Shortness of breath URI (upper respiratory infection) Precordial chest pain Abnormal stress test Family History Family History Mother Heart attack Family history of problems with anesthesia: No Surgical History Surgical History Hx of neck surgery History of back surgery History of colonoscopy (10/30/18) Hx of cardiac cath History of Problems with Anesthesia: No Social History Social History Housing: House Alcohol intake: current Alcohol intake frequency: holidays/special occasions only Patient Tobacco Use Status: Former Tobacco user e-Cigarette/Vaping Use: Former Use Use of substances other than those prescribed or required for medical reasons: No Have you been hit, kicked, punched, or otherwise hurt by someone within the past year? If so, by whom?: No Are you DNR?: No Advance Directives: No Advance Directives Information Provided: Yes Advance Directives on File: No Poor oral hygiene: No service: No Current occupational status: retired Cognitive needs: No Hearing needs: No Vision needs: Yes (reading glasses) Meds Allergies Allergy/AdvReac Type Severity Reaction Status Date / Time No Known Allergies (No Known Allergy Verified 08/24/24 10:50 Allergies*) Home Medications ?Medication ?Instructions ?Recorded ?Confirmed ?Last Taken ?Type omeprazole magnesium 20 mg 20 mg PO DAILY 04/27/21 10/28/24 11/11/24 History capsule,delayed release acetaminophen 500 mg tablet 1,000 mg PO Q6H PRN Pain 10/28/24 10/28/24 Unknown History ibuprofen 200 mg tablet 400 mg PO Q6H PRN Pain 10/28/24 10/28/24 11/04/24 History Exam Airway Mallampati Class: III TM Dist: <=3cm Neck ROM: Limited Heart: rrr Lungs: cta Assessment and Plan Assessment Anesthesia Assessment: Anesthesia Plan Discussed Final Anesthetic Review Family History of Problems with Anesthesia: No History of Problems with Anesthesia: No NPO: Yes ASA Class: III (pre op ekg normal, had some chest pain ?? resolved spontaneously, ekg nl) Final Preanesthetic Review: No Changes in Pt Med Stat, Meds/Allgs Chart Reviewed, Consent Obtained/Reviewed and Anes Risks/Benef Reviewed Patient Risk: Intermediate Procedure Risk: Intermediate Anesthetic Plan Anesthetic Plan: GA Disposition: Standard PACU
--- NOTE | ~2024-11-11 | FL_ITS ---
EXAMINATION: FL GUIDANCE ONLY HISTORY: l2-5 decompression COMPARISON: None available. TECHNIQUE: Fluoroscopy time: 3.7 seconds. Cumulative Dose: 3.8090 mGy. DAP: 1.3324 mGym2 Images: 1. FINDINGS: A single fluoroscopic spot film of the lumbar spine in the lateral projection demonstrates a probe directed toward the L4-5 intervertebral disc space from a posterior approach. FL/FL guidance in OR IMPRESSION: Fluoroscopy during procedure. Please see procedure report for additional information. Electronically signed by: Benjamin Espinosa MD 11/11/2024 11:03 AM EDT
[2024-11-11 06:17] VITALS: BMI 28.4
--- NOTE | 2024-11-11 06:20 | PC.NURSE ---
patient sitting on edge of bed and grabbed has chest multiple times. states it may be his increased blood pressure and feels anxious. onset when he arrived into preop area. no sob or resp distress. denies radiating pain and when asked to describe the feeling patient is unable to describe. nondiaphoretic. smiling.
--- NOTE | 2024-11-11 06:30 | ECG_ITS ---
Test Reason : chest pain Blood Pressure : */* mmHG Vent. Rate : 65 BPM Atrial Rate : 65 BPM P-R Int : 194 ms QRS Dur : 78 ms QT Int : 386 ms P-R-T Axes : 70 49 40 degrees QTcB Int : 401 ms Sinus rhythm with Premature atrial complexes Otherwise normal ECG When compared with ECG of 10-Oct-2023 07:21, Premature atrial complexes are now Present Referred By: Mecca Brooke Electronically Signed By: SUSANA BARRIOS MD
[2024-11-11 06:33] VITALS: BP 139/84; PULSE 70; RESP 16; TEMP 36.7; O2SAT 95
[2024-11-11] MEDS: Lactated Ringers 1,000 ML 100 ML IVCONT (06:44)
--- NOTE | 2024-11-11 06:48 | P.HPSUR_ITS ---
Pre-Procedural Eval Section A - 24 Hr Update-Section A only Date of Service: 11/11/24 Section B - Complete if H&P > 30 days Chief Complaint: Spinal stenosis, lumbar region without neurogenic Allergies: Allergies Allergy/AdvReac Type Severity Reaction Status Date / Time No Known Allergies (No Known Allergy Verified 08/24/24 10:50 Allergies*) Review of Systems Sugical H&P ROS: Negative: Constitution, Cardiovascular, Respiratory, Neurological, Psychiatric, Hem-Onc, Allergic/Immunologic, Gastrointestinal, Genitourinary, Musculoskeletal, Integumentary, Endocrine and Eyes/ Ears/Nose/Throat Exam Surgical H&P Exam: Not Evaluated: HEENT, Not Evaluated: Heart, Not Evaluated: Lungs, Not Evaluated: Extremities, Not Evaluated: Abdomen, Not Evaluated: Skin and Not Evaluated: Neurological Exam Comment: The patient is awake, alert, no acute distress. Proposed surgical incision site is clean, dry, with no signs of recent trauma. Plan Diagnosis/Plan: Unchanged I have reviewed the history and physical and performed a pertinent physical examination on my patient. No changes have occurred unless specified. Plan remains the same, left L3-4, L4-5 lumbar decompression. Time Spent With Patient Time: Total time managing care of this patient today __12__ minutes.
--- NOTE | 2024-11-11 07:04 | PC.NURSE ---
chest pain/pressure getting better per patient.
--- NOTE | 2024-11-11 09:10 | P.OP_ITS ---
Operative Note Operative Note Date of Service: 11/11/24 Narrative: Preoperative Diagnosis: L3-4, L4-5 spinal stenosis/lateral recess stenosis/neural foraminal stenosis Operation: Left L3-4 and L4-5 Laminotomy, Partial facetectomy and foraminotomy with use of microscope Consent Informed Consent was obtained for this operation. I have explained the nature, purpose and benefits of the operation. I have discussed the risks and benefit of the operation including possible complications or adverse events with patient/family. Alternative(s) were discussed with the patient with their relative benefits and risks as well as the consequences of not accepting the operation were included in obtaining consent. Surgeon: ELO RENTERIA MD, PHD Procedure Assisted By: Marcel Love Description of Procedure This 64-year-old male suffering from back pain and left lumbar radiculopathy. MRI shows [id number] L3-4 stenosis and moderate L4-5 stenosis.. The patient was offered a left L3-4, L4-5 decompression. The procedure complications were explained. The patient was consented. The patient was brought to the operating room and endotracheally intubated. The patient was turned in prone position on the Eligio frame. Prep and drape was done followed by timeout. The Physician registered medical assistant provided access. A mid lumbar incision was made followed by release of the paravertebral muscle on the left side to expose the L3, L4 and L5 lamina and facet joints. An intraoperative x-ray was obtained to confirm the correct level. The microscope was brought in. I took over the procedure. The high-speed drill was used to do a left L3, L4 laminotomy until flavum ligament was reached. A #2 Kerrison was used to expand the laminotomy near flush to the pedicles and to include a partial facetectomy. The flavum ligament was opened and resected with a #3 Kerrison to decompress the underlying thecal sac. The flavum ligament was removed to decompress the lateral recess and the exiting L4 nerve root. A long nerve hook could be easily passed along the medial side of the pedicles as a sign of adequate decompression. Then attention was turned to the L4-5 level. A left L4-5 decompression was done with removal of the lamina and a partial facetectomy. Left L4 foraminotomy was done and the L5 nerve root was decompressed in the lateral recess. The microscope was removed. Hemostasis was done. The physician registered medical assistant close the Incision in 2 layers. Steri-Strips were used to approximate incision. An OpSite with Tegaderm was used to cover the incision. All sponge needle counts were correct. Patient was extubated and transported in stable is to recovery room. Anesthesia: General Estimated Blood Loss (ml): 35 mL Complications: None Duration of Surgery: 70 Minutes Postoperative Plan: Discharge to home
--- NOTE | 2024-11-11 09:19 | P.DS_ITS ---
DS: Providers Provider Date of Service: 11/11/24 Date of discharge: 11/11/24 Primary care physician: Sal Machado MD DS: Summary Time Attestation Discharge Coordination Time (in mins): 12 Quality: Safe Use of Opioids Does Pt have an Active Cancer Diagnosis on the Problem List?: No Quality: Stroke Does the patient have a stroke diagnosis?: No Physical Exam Vital Signs: Vital Signs: Last Vital Signs Temp 98.1 F 11/11/24 06:33 Pulse 70 11/11/24 06:33 Resp 16 11/11/24 06:33 BP 139/84 11/11/24 06:33 Pulse Ox 95 11/11/24 06:33 O2 Del Method Room Air 11/11/24 06:33 BMI result Body Mass Index 28.4 Discharge Plan Discharge Patient Disposition: Home, Self-Care Referrals: Sal Machado MD [Primary Care Provider, Internal Medicine] - 1 Week Discharge Medications: New oxycodone 5 mg tablet 5 mg PO Q6H PRN (Reason: pain) Qty: 30 0RF Rx Instructions: Partial Fill upon patient request. Continued atorvastatin 40 mg tablet 40 mg PO BEDTIME Qty: 90 3RF carvedilol 12.5 mg tablet 12.5 mg PO BID Qty: 180 3RF albuterol sulfate 90 mcg/actuation HFA aerosol inhaler 2 puff inhalation Q4-6H PRN (Reason: shortness of breath or wheezing) Qty: 6.7 0RF acetaminophen 500 mg Tablet 1,000 mg PO Q6H PRN (Reason: Pain) omeprazole magnesium 20 mg capsule,delayed release(DR/EC) 20 mg PO DAILY nitroglycerin 0.4 mg tablet, sublingual 0.4 mg sublingual Q5M PRN (Reason: chest pain) Qty: 30 5RF Rx Instructions: do not exceed 3 doses per episode Held aspirin 81 mg tablet,delayed release (DR/EC) 81 mg PO DAILY Qty: 90 3RF ibuprofen 200 mg Tablet 400 mg PO Q6H PRN (Reason: Pain) Hold Instructions: Resume on 11/12/24. Discharge Orders: Discharge Order (Routine); Ordered 11/11/24 Ordered By: Marcel Isaacs Diet: Advance to usual diet Activity on Discharge: As tolerated Activity Restrictions/Additional Instructions: After your spinal surgery we ask you to observe the following restrictions/guidelines: Activity: It is normal to feel some discomfort as you increase your activity, but that will improve with time. We ask you avoid heavy lifting or acitivities that cause pain. As a general rule, 8lbs is a safe limit for lifting right after surgery. Walk as much as you feel comfortable but not to exhaustion. You will feel extra tired the first few days after surgery. Stay well hydrated. It is OK to walk up and down stairs You may return to driving when you are off narcotics (such as vicodin, oxycodone, dilaudid, etc), and you are back to normal functional capacity. If you have any concerns please check with office before driving. Return to work is specific to each patient and each surgery, so please speak with your doctor/PA at first follow up. Please bring paperwork such as FMLA at that time if you need it filled out. Medications: Please hold your Aspirin until 11/15/24 Please hold your ibuprofen until tomorrow We recommend you take 1,000mg Tylenol every 8 hours for the first few weeks after surgery, if you do not have any liver issues and can tolerate this medication. Do not exceed 4,000mg daily. We will give you a short supply of narcotics after surgery (usually one weeks worth). If you need more please call the office but do not use more than prescribed. You will need to give our office 48 hours notice if you need narcotics refilled and we do not fill narcotics on weekends or evenings. If you are on a narcotic, it is a good idea to take a stool softener such as colace or senna to avoid constipation If you take blood thinner such as aspirin, Plavix, Coumadin, Effient, Eliquis etc for conditions such as Afib, DVT, Pulmonary embolus, coronary disease, stents etc please speak with your surgeon about specific details as to when you can resume these medications. You can resume NSAIDs on post op day 1 (eg: Motrin, Naproxen, etc). Follow up: Please call the office, , after surgery to arrange a 3 week follow up for wound check. Wound Care: You may remove your dressing on the first day after surgery. ?You may ?leave open to air. Please do not remove the steri strips underneath. they will fall off on their own in one week. IT IS NORMAL FOR THE WOUND TO OOZE OR BE BLOODY FOR A FEW DAYS AFTER SURGERY. ?IF THIS HAPPENS JUST PLACE NEW DRESSING OVER IT TO AVOID STAINING CLOTHES. You may shower on post op day # 1 We ask that you do not let the water soak the wound. If it does get wet, just towel dry lightly. Please do not scrub your incision or place any type of chemical/ointment on the wound. No tub baths, pools or jacuzzis for one month. If you have any leaking or redness from your wound, or fevers, please call the office. Print Language: Georgian
[2024-11-11 09:24] VITALS: BP 178/92; PULSE 80; RESP 12; TEMP 36.1; O2SAT 97
[2024-11-11 09:25] VITALS: BP 156/88; PULSE 76; RESP 14; O2SAT 100
[2024-11-11 09:30] VITALS: BP 139/86; PULSE 78; RESP 14; O2SAT 100
[2024-11-11 09:35] VITALS: BP 135/85; PULSE 80; RESP 16; O2SAT 98
[2024-11-11 09:50] VITALS: BP 162/98; PULSE 77; RESP 16; TEMP 36.1; O2SAT 98
== END 2024-11-11 10:50 | disposition home or self-care (01) ==
PROVIDERS: PCP Internal Medicine; Visit Provider Neurological Surgery
PROC: (CPT 63047; principal; 2024-11-11 07:30)
DX: M48.061 Spinal stenosis, lumbar region without neurogenic claudication (principal); M54.16 Radiculopathy, lumbar region; R26.2 Difficulty in walking, not elsewhere classified; G62.9 Polyneuropathy, unspecified; I10 Essential (primary) hypertension; I25.10 Atherosclerotic heart disease of native coronary artery without angina pectoris; I49.1 Atrial premature depolarization; I49.3 Ventricular premature depolarization; E78.00 Pure hypercholesterolemia, unspecified; K21.9 Gastro-esophageal reflux disease without esophagitis; G47.33 Obstructive sleep apnea (adult) (pediatric); R93.1 Abnormal findings on diagnostic imaging of heart and coronary circulation; R07.2 Precordial pain; Z79.1 Long term (current) use of non-steroidal anti-inflammatories (NSAID); Z79.82 Long term (current) use of aspirin; Z79.899 Other long term (current) drug therapy; Z99.89 Dependence on other enabling machines and devices; Z98.890 Other specified postprocedural states; Z87.891 Personal history of nicotine dependence
CPT/HCPCS: 63047; 63048; 93005; J0131; J0330; J0690; J1100; J1885; J2250; J2405; J2704; J3010

== ENCOUNTER → 2024-11-11 05:48 | Outpatient (BNV) | payer MEDICARE, OTHER, SELFPAY | PROVIDERS: PCP Internal Medicine; Visit Provider Neurological Surgery | DX: M48.062 Spinal stenosis, lumbar region with neurogenic claudication (principal) | CPT/HCPCS: 63047; 63048; 99499 ==

== ENCOUNTER → 2024-11-11 06:30 | Outpatient (BNV) | payer MEDICARE, OTHER, SELFPAY | PROVIDERS: PCP Internal Medicine; Visit Provider Internal Medicine Cardiovascular Disease | DX: I49.1 Atrial premature depolarization (principal) | CPT/HCPCS: 93010 ==

== ENCOUNTER 2024-12-02 14:52 | Outpatient (AMB) | payer MEDICARE, OTHER, SELFPAY ==
--- NOTE | 2024-12-02 14:56 | HO.SPINEOV ---
Intake Visit Reasons: 1st post op Intake Note: Mr. Fuentes is here today for his 1st post op. Administrative Resources Associate Required: No Allergies No Known Allergies (No Known Allergies*) Allergy (Verified 12/02/24 14:57) Assessment & Plan Assessment & Plan (1) Lumbar stenosis: Code(s): M48.061 - Spinal stenosis, lumbar region without neurogenic claudication Category: Medical Plan Procedure: Left L3-4 and L4-5 Laminotomy, Partial facetectomy and foraminotomy Blake is a pleasant 64-year-old male who comes in today for his 1st postoperative visit after having L3-5 lumbar decompression completed by Dr. Wong. He reports that overall he does feel better than he did prior to surgery, however he continues to have some cramping of his left posterior buttocks and right lateral leg. This primarily occurs with ambulation. He continues to primarily use [id number] medications such as Tylenol/ibuprofen and requested a prescription for ibuprofen during this visit. He does occasionally take a single oxycodone before bed to help him sleep. We discussed the postoperative healing course during this visit, and I answered any questions that he had. It is most likely that he is suffering from a course of postoperative inflammation causing the symptoms to rise. No new neurological deficits. The patient ambulates well and rises from seated position without difficulty. His posterior incision site is closed and well healing. I would like to follow up with Blake again in 6 weeks for his 2nd postoperative visit. I will send a prescription of ibuprofen to [facility] [place]. Marcel Wong MD,PhD [facility] Medications: New ibuprofen 600 mg PO TID PRN 30 tabs 0RF pain Coding Level of Care Code Global (49062) Diagnoses Lumbar stenosis M48.061
--- OUTSIDE RECORDS SUMMARY | 2024-12-02 15:28 | XMS_ITS | Patient Health Record ---
Author Organization [facility] [place] Address [address] [place] [address] Care Team Providers Care Analytics Manager Name Role Phone Jaydon Dang MD Primary Care Provider Garth Stokes Unavailable [phone] Reason For Referral No Information Medications Medication [...] Status Risk Notes Problem Plantar fascial fibromatosis (81890591) Plantar fascial fibromatosis (M72.2) Active confirmed Plan Of Treatment No Information Insurance Providers Payer Name Payer Address Payer Phone Subscriber Number Group Number Insured Name Patient Relationship to Insured Coverage Start Date Coverage End Date [facility] [address] [place] [address] [id number] Tayler Fuentes Spouse - patient is the spouse of the insured Medical (General) History Medical History History ICD Code Neuropathy Reflux Cholesterol Surgical History Surgery Date(Month/Year) neck surgery 1999 back surgery 2009
--- OUTSIDE RECORDS SUMMARY | 2024-12-02 15:28 | XMS_ITS | Clinical Summary ---
Author Organization [facility] Address [address] [place] [address] Care Team Providers Care Clean Energy Policy Analyst Name Role Phone Jaydon Dang MD Primary Care Provider [phone] Allergies No known active allergies Social History [...] Zoster (Shingles) Vaccine (1 of 2) 2008 DXA Bone Density (Females,Ag es 65 and older) 08/18/2023 COVID-19 Vaccine ( - 2023-2 5 season) 2024 Influenza Vaccine 12/11/2024 RSV Vaccine 60 years and old er and Patients (1 - 1-dose 75+ series) 2033 Hepatitis B Vaccines Aged Out No long er eligible based on patient's age to complete this topic Insurance [facility] Care Teams Clean Energy Policy Analyst Relationship Specialty Start Date End Date Jaydon Dang MD [address] [place] [address] [place] [address] PCP - General 09/25/23
--- OUTSIDE RECORDS SUMMARY | 2024-12-02 15:29 | XMS_ITS | Patient Health Record ---
Author Organization [facility] Address [address] [place] [address] Care Team Providers Care Otr Flatbed Driver Name Role Phone Laurence (RETIRED) Jaydon SANTANA Primary Care Provide r Taiwo Rodriguez Jr Unavailable Reason For Referral No Information Medications Medication SIG (Take, Route, Frequency, Duration) Notes Start Date End Date Status Calcium Magnesium zinc 1 tablet orally o nce a day Active Colyte with Flavor Packs 240 GM As directed Orally Over the specified time. for 1 day(s) 10/02/2018 Active Atorvastatin Calcium 40 MG TAKE 1 TABLET BY MOUTH EVERY DAY Oral for 30 Active Omeprazole 20 MG 1 capsule Orally Onc e a day for 30 day(s) Active Immunizations Vaccine Route Administration Date Status Comme nts Influenza Unknown 10/02/2018 Refused Social History Tobacco Use: Social History Observation Description Date Details (start date - stop date) Former Smoker NA - NA Tobacco Use/Smoking Question Answer Notes Patient is a former smoker When did you stop smoking? 1991 Alcohol Screen Question Answer Notes Did you have a drink contain ing alcohol in the past year? Yes How often did you have a dri nk containing alcohol in the past year? 2 to 4 times a month (2 points) How many drinks did you have on a typical day when you were drinking in the past year? 3 or 4 drinks (1 point) Points 3 Interpretation Negative Problems Problem Type SNOMED Code ICD Code Onset Dates Problem Status W/U Status Risk Notes Problem [id number] Colon cancer screening (Z12.11) Active confirmed Problem [id number] Encounter for other preprocedural examination (Z01.818) Active confirmed Plan Of Treatment Future Test Test Name Order Date COLONOSCOPY 10/02/2018 Insurance Providers Payer Name Payer Address Payer Phone Subscriber Number Group Number Insured Name Patient Relationship to Insured Coverage Start Date Coverage End Date [employer]REG [address] [place], [place] [address] [id number] NASH DAWKINS Self - patient is the insured Medical (General) History Medical History History ICD Code elevated cholesterol positive hepatitis C antibody, viral shivani ds have been negative. gastroesophageal reflux disease obstructive sleep apnea/CPAP Surgical History Surgery Date(Month/Year) back surgery 2009 neck surgery
== END 2024-12-02 15:50 | disposition home or self-care (01) ==
LOC: HO.HNS 14:53
PROVIDERS: PCP Internal Medicine; Visit Provider Physician Assistant
DX: M48.061 Spinal stenosis, lumbar region without neurogenic claudication (principal)
CPT/HCPCS: 99024

== ENCOUNTER → 2024-12-02 14:52 | Outpatient (BNVA) | payer MEDICARE, OTHER, SELFPAY | PROVIDERS: PCP Internal Medicine; Visit Provider Physician Assistant | DX: Z47.89 Encounter for other orthopedic aftercare (principal); M48.061 Spinal stenosis, lumbar region without neurogenic claudication; Z98.890 Other specified postprocedural states | CPT/HCPCS: 99212 ==

== ENCOUNTER 2025-01-13 14:34 | Outpatient (AMB) | payer MEDICARE, OTHER, SELFPAY ==
--- NOTE | 2025-01-13 14:41 | HO.SPINEOV ---
Intake Visit Reasons: 2nd post op Intake Note: Mr. Fuentes is here today for his 2nd post op. Speed Reading Teacher Required: No Allergies No Known Allergies (No Known Allergies*) Allergy (Verified 12/02/24 14:57) Assessment & Plan Assessment & Plan (1) Lumbar stenosis: Code(s): M48.061 - Spinal stenosis, lumbar region without neurogenic claudication Category: Medical Plan Mr Fuentes is here in follow-up. His preoperative left leg pain is significantly better. What he is dealing with now has a right hip pain which seems to have evolved over the last month or so. It does give him pain with walking so it has been limiting him somewhat. His incision is all healed up well. I did examine his right hip and he has no pain with internal external rotation. Not exactly sure if this is something in the hip joint itself or if it is maybe something more like a bursa. I offered an x-ray, but this point he is not interested in that yet. If it gets worse he will let me know. I will refill his Motrin for 1 final time. I would like see him back in 6 weeks for final postoperative visit. Mynor Wong MD, PhD [facility] Medications: Refilled ibuprofen 600 mg PO TID PRN 30 tabs 0RF pain Coding Level of Care Code Global (43032) Diagnoses Lumbar stenosis M48.061
--- OUTSIDE RECORDS SUMMARY | 2025-01-13 16:51 | XMS_ITS ---
Author Name [facility] Organization Unknown History of Medication Use Medication Directions Dispensed Refills Start Date End Date Stat nitroglycerin (NITROSTAT) SL tablet 0.4 mg 0.4 mg, Sublingual, Once, On Sat09/25/23 at 0930, For 1 dose, To be administered on the CT table Do not chew, crush, or swallow sublingual tablet. Place under tongue and allow to dissolve. Alternately, may be placed in the buccal pouch. 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
--- OUTSIDE RECORDS SUMMARY | 2025-01-13 16:51 | XMS_ITS | Clinical Summary ---
Author Organization [facility] Address [address] [place] [address] Care Team Providers Care Lining Feller Name Role Phone Jaydon Dang MD Primary Care Provider [phone] Allergies No known active allergies Social History [...] Health Maintenance Due Date Last Done Comments Advance Care Planning 1960 Hepatitis C Virus Screening 1960 DTaP/Tdap/Td Vaccines [...] patient's age to complete this topic Insurance [facility] - O Care Teams Lining Feller Relationship Specialty Start Date End Date Jaydon Dang MD [address] [place] [address] [place] [address] PCP - General 09/25/23
--- OUTSIDE RECORDS SUMMARY | 2025-01-13 16:51 | XMS_ITS | Patient Health Record ---
Author Organization [facility] [place] Address [address] [facility] [place] [address] Care Team Providers Care Physical Education Instructor Name Role Phone Jaydon Dang MD Primary Care Provider Garth Stokes Unavailable [phone] Reason For Referral No Information Medications Medication [...] Status Risk Notes Problem Plantar fascial fibromatosis (48011021) Plantar fascial fibromatosis (M72.2) Active confirmed Plan Of Treatment No Information Insurance Providers Payer Name Payer Address Payer Phone Subscriber Number Group Number Insured Name Patient Relationship to Insured Coverage Start Date Coverage End Date [facility] [address] [place] [address] [phone] [id number] Tayler Fuentes Spouse - patient is the spouse of the insured Medical (General) History Medical History History ICD Code Neuropathy Reflux Cholesterol Surgical History Surgery Date(Month/Year) neck surgery 1999 back surgery 2009
--- OUTSIDE RECORDS SUMMARY | 2025-01-13 16:51 | XMS_ITS | Encounter Summary ---
Author Organization [facility] Address [address] [place] [address] Care Team Providers Care Point Of Care Specialist Name Role Phone System, Provider Not In Primary Care Provider Un available Jaydon Dang MD Primary Care Provider [phone] Encounter Details Date Type Department Care Team (Late st Contact Info) Description 09/24/2023 Scanned Document [address] [place] [id number] Radiology, Scan Social History Tobacco Use [...] on filedocumented in this encounter Care Teams Point Of Care Specialist Relationship Specialty Start Date End Date System, Provider Not In PCP - General 08/23/23 09/24/23 Jaydon Dang MD [address] [place] [address] [place] [address] PCP - General 09/25/23 documented as of this encounter
--- OUTSIDE RECORDS SUMMARY | 2025-01-13 16:51 | XMS_ITS | Patient Health Record ---
Author Organization [facility] Address [address] [place] [address] Care Team Providers Care Silk Printer Name Role Phone Laurence (RETIRED) Jaydon SANTANA Primary Care Provide r Taiwo Rodriguez Jr Unavailable [phone] Reason For Referral No Information Medications Medication [...] Problem Status W/U Status Risk Notes Problem [id number] Colon cancer screening (Z12.11) Active confirmed Problem [id number] Encounter for other preprocedural examination (Z01.818) Active confirmed Plan Of Treatment Future Test Test Name Order Date COLONOSCOPY 10/02/2018 Insurance Providers Payer Name Payer Address Payer Phone Subscriber Number Group Number Insured Name Patient Relationship to Insured Coverage Start Date Coverage End Date GREG [address] [place], [place] [address] [id number] NASH DAWKINS Self - patient is the insured Medical (General) History Medical History History ICD Code elevated cholesterol positive hepatitis C antibody, viral shivani ds have been negative. gastroesophageal reflux disease obstructive sleep apnea/CPAP Surgical History Surgery Date(Month/Year) back surgery 2009 neck surgery
== END 2025-01-13 14:52 | disposition home or self-care (01) ==
LOC: HO.HNS 14:35
PROVIDERS: PCP Internal Medicine; Visit Provider Physician Assistant
DX: M48.061 Spinal stenosis, lumbar region without neurogenic claudication (principal)
CPT/HCPCS: 99024

== ENCOUNTER → 2025-01-13 14:34 | Outpatient (BNVA) | payer MEDICARE, OTHER, SELFPAY | PROVIDERS: PCP Internal Medicine; Visit Provider Physician Assistant | DX: Z47.89 Encounter for other orthopedic aftercare (principal); M48.061 Spinal stenosis, lumbar region without neurogenic claudication | CPT/HCPCS: 99212 ==

== ENCOUNTER 2025-02-25 14:14 | Outpatient (AMB) | payer MEDICARE, OTHER, SELFPAY ==
--- NOTE | 2025-02-25 14:45 | HO.SPINEOV ---
Intake Visit Reasons: 6 weeks follow up Intake Note: Mr. Fuentes is here today for a 6 weeks F/u. 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 He had excellent relief of his left leg pain, but still continues to have severe burning pain in his feet at night. This has been going on for many years. He was hopeful the surgery would fix it, but unfortunately it did not improve. His low back still bothers him a little bit on the left. When he is standing and walking. It sounds muscular. I encouraged him to resume his PT exercises. I am going to order an EMG to see if we are dealing with peripheral neuropathy here. That is what it sounds like based on his symptom presentation. If that is negative I can check vasculature in his lower extremities. Mynor Wong MD, PhD [facility] Orders: Orders NE electromyogram (EMG) Today M48.061 - Spinal stenosis, lumbar region without neurogenic claudication Coding Level of Care Code Global (34045) Diagnoses Lumbar stenosis M48.061
--- OUTSIDE RECORDS SUMMARY | 2025-02-25 17:56 | XMS_ITS | Encounter Summary ---
Author Organization [facility] Address [address] [place] [address] Care Team Providers Care Mining Plant Operator Name Role Phone System, Provider Not In Primary Care Provider Un available Jaydon Dang MD Primary Care Provider [phone] Encounter Details Date Type Department Care Team (Late st Contact Info) Description 09/24/2023 Scanned Document [address] [place] [phone] Radiology, Scan Social History Tobacco Use [...] on filedocumented in this encounter Care Teams Mining Plant Operator Relationship Specialty Start Date End Date System, Provider Not In PCP - General 08/23/23 09/24/23 Jaydon Dang MD [address] [place] [address] [place] [address] PCP - General 09/25/23 documented as of this encounter
--- OUTSIDE RECORDS SUMMARY | 2025-02-25 17:56 | XMS_ITS | Patient Health Record ---
Author Organization [facility] [place] Address [address] [facility] [place] [address] Care Team Providers Care Critical Care Physician Assistant Name Role Phone Jaydon Dang MD Primary Care Provider Garth Stokes Unavailable [phone] Reason For Referral No Information Medications Medication [...] Status Risk Notes Problem Plantar fascial fibromatosis (98657113) Plantar fascial fibromatosis (M72.2) Active confirmed Plan Of Treatment No Information Insurance Providers Payer Name Payer Address Payer Phone Subscriber Number Group Number Insured Name Patient Relationship to Insured Coverage Start Date Coverage End Date [facility] [address] [place] [address] [phone] [id number] Tayler Fuentes Spouse - patient is the spouse of the insured Medical (General) History Medical History History ICD Code Neuropathy Reflux Cholesterol Surgical History Surgery Date(Month/Year) neck surgery 1999 back surgery 2009
--- OUTSIDE RECORDS SUMMARY | 2025-02-25 17:56 | XMS_ITS | Patient Health Record ---
Author Organization [facility] Address [address] [place] [address] Care Team Providers Care Supervisor Offset Plate Preparation Name Role Phone Laurence (RETIRED) Jaydon SANTANA Primary Care Provide r Taiwo Rodriguez Jr Unavailable [phone] Reason For Referral No Information Medications Medication SIG (Take, Route, Frequency, Duration) Notes Start Date End Date Status Calcium Magnesium zinc 1 tablet orally o nce a day Active Colyte with Flavor Packs 240 GM As directed Orally Over the specified time.; Duration: 1 day(s) 10/02/2018 Active Atorvastatin Calcium 40 MG TAKE 1 TABLET BY MOUTH EVERY DAY Oral; Duration: 30 Active Omeprazole 20 MG 1 capsule Orally Onc e a day; Duration: 30 day(s) Active Immunizations Vaccine Route Administration [...] Problem Status W/U Status Risk Notes Problem Colon cancer screening (383752065) Colon cancer screening (Z12.11) Active confirmed Problem Pre-procedure evaluation check (819443868) Encounter for other preprocedural examination (Z01.818) Active confirmed Plan Of Treatment Future Test Test Name Order Date COLONOSCOPY 10/02/2018 Insurance Providers Payer Name Payer Address Payer Phone Subscriber Number Group Number Insured Name Patient Relationship to Insured Coverage Start Date Coverage End Date GREG [address] [place], [place] [address] [id number] NASH DAWKINS Self - patient is the insured Medical (General) History Medical History History ICD Code elevated cholesterol positive hepatitis C antibody, viral shivani ds have been negative. gastroesophageal reflux disease obstructive sleep apnea/CPAP Surgical History Surgery Date(Month/Year) back surgery 2009 neck surgery
--- OUTSIDE RECORDS SUMMARY | 2025-02-25 17:56 | XMS_ITS | Clinical Summary ---
Author Organization [facility] Address [address] [place] [address] Care Team Providers Care Mechanical Test Technician Name Role Phone Jaydon Dang MD Primary Care Provider Allergies No known active allergies Social History [...] es 65 and older) 08/18/2023 Influenza Vaccine 12/11/2024 COVID-19 Vaccine ( - 2023-2 5 season) 2025 RSV Vaccine 50 years and old er and Patients (1 - 1-dose 75+ series) 2033 Hepatitis B Vaccines Aged Out No long er eligible based on patient's age to complete this topic Insurance [facility] - O Care Teams Mechanical Test Technician Relationship Specialty Start Date End Date Jaydon Dang MD [address] [place] [address] [place] [address] PCP - General 09/25/23
== END 2025-02-25 15:24 | disposition home or self-care (01) ==
LOC: HO.HNS 14:15
PROVIDERS: PCP Internal Medicine; Visit Provider Physician Assistant
DX: M48.061 Spinal stenosis, lumbar region without neurogenic claudication (principal)
CPT/HCPCS: 99213

== ENCOUNTER → 2025-02-25 14:14 | Outpatient (BNVA) | payer MEDICARE, OTHER, SELFPAY | PROVIDERS: PCP Internal Medicine; Visit Provider Physician Assistant | DX: M48.061 Spinal stenosis, lumbar region without neurogenic claudication (principal) | CPT/HCPCS: 99212 ==

== ENCOUNTER 2025-03-01 08:47 | Outpatient (AMB) | payer MEDICARE, OTHER, SELFPAY ==
--- NOTE | 2025-03-01 08:06 | A.OFFPC_ITS ---
Vital Signs 03/01/25 08:52 Height 6 ft Weight 216 lb BMI 29.3 BP 148/70 H Blood Pressure Location Rt brachial Position Sitting Pulse 73 Pulse Source Pulse Oximeter Temp 98.5 F Temp Source Temporal Artery Scan Pulse Oximetry (%) 99 Oxygen Delivery Method Room Air Intake Visit Reasons: 6 Month F/U Manager Intelligence Required: No Accompanied by: Self / Same As Patient Allergies No Known Allergies (No Known Allergies*) Allergy (Verified 12/02/24 14:57) Medication List - Last Reconciled 03/01/25 by Gibran Lazar MD acetaminophen 1,000 mg PO Q6H PRN albuterol sulfate 90 mcg/actuation 2 puffs inhalation Q4-6H PRN aspirin 81 mg PO DAILY atorvastatin 40 mg PO BEDTIME carvedilol 12.5 mg PO BID ibuprofen 600 mg PO TID PRN nitroglycerin 0.4 mg sublingual Q5M PRN omeprazole magnesium 20 mg PO DAILY Tobacco use date assessed: 03/01/25 Fall risk assessment: No Falls in past year Last assessed Fall Risk: 03/01/25 Dental Screening Dental Screen Date: 03/01/25 Did you have a dental visit in the last 12 months?: No Did you have a dental problem in the last 6 months where you did not have access to dental care?: No HPI HPI Comments History of Present Illness Details The patient is a 64-year-old male presenting with shortness of breath and to address concerns regarding neuropathy. The shortness of breath becomes noticeable when engaged in activities such as walking long distances or climbing stairs, yet it returns to normal with rest. The patient reports having smoked from age 14 to 30 but quit smoking in 1991, and a lung branch blockage was noted in previous evaluations, though deemed non-serious. The patient is currently using albuterol for symptom relief despite not having COPD or asthma. Regarding neuropathy, the patient describes significant tingling and pain in the feet, causing an inability to walk normally without discomfort. This condition worsens at night, as the patient avoids blanket contact due to severe burning sensa tions. An EMG has been ordered for further evaluation. Additionally, the patient mentions suffering from unstable angina and acid reflux. Unstable angina is managed with nitroglycerin, and the patient has been prescribed GERD medication for acid reflux. The patient also has a history of sleep apnea, for which a CPAP mask is used. Medical History: - Hypertension - Unstable angina - Gastroesophageal reflux disease - Sleep apnea - History of tobacco use (quit in 1991) - Suspected history of hepatitis C (30 y ears ago) - Elevated cholesterol Surgical History: - Previous surgery (unspecified, recent past year) Medications: - Albuterol inhaler for shortness of ranulfo ath - Carvedilol for hypertension - Nitroglycerin for angina - Ibuprofen for general pain - Atorvastatin 40 mg for high cholestero l - Aspirin for heart disease Diagnostic Results: - Previous lung evaluation indicated a b ranch blockage Social History: - Previous tobacco use, smoked from age 14 to 30, quit in 1991 - Retired, regular physical activities i nclude playing golf and [employer] [facility] Medical History (Updated 03/01/25 @ 09:26 by Gibran Lazar MD) Hepatitis C Hyperlipidemia Back pain Arthritis GERD (gastroesophageal reflux disease) Neuropathy Elevated cholesterol HTN (hypertension) Coronary arteriography abnormal Insomnia TIMOTHY on CPAP Shortness of breath URI (upper respiratory infection) Precordial chest pain Abnormal stress test Surgical History Hx of neck surgery History of back surgery History of colonoscopy (11/07/18) Hx of cardiac cath Family History (Updated 03/01/25 @ 08:59 by Krystal Reaves MA) Mother Heart attack Father No problems noted. Social History Housing: House Are you a primary nursing care attendant to a significant other at home: No Do you presently have visiting nurse or other home services: No Alcohol intake: current Alcohol intake frequency: holidays/special occasions only Patient Tobacco Use Status: Former Tobacco user e-Cigarette/Vaping Use: Former Use service: No Current occupational status: retired Cognitive needs: No Hearing needs: No Vision needs: Yes (reading glasses) Questionnaire PHQ-9 Over the last 2 weeks, how often have you been bothered by any of the following problems? 1. Little interest or pleasure in doing things: not at all 2. Feeling down, depressed, or hopeless: not at all 3. Trouble falling or staying asleep, or sleeping too much: not at all 4. Feeling tired or having little energy: not at all 5. Poor appetite or overeating: not at all 6. Feeling bad about yourself - or that you are a failure or have let yourself or your family down: not at all 7. Trouble concentrating on things, such as reading the newspaper or watching television: not at all 8. Moving or speaking so slowly that other people could have noticed. Or the opposite - being so fidgety or restless that you have been moving around a lot more than usual: not at all 9. Thoughts that you would be better off or of hurting yourself in some way: not at all Total score: 0 Source: Developed by Drs. Benjamin Peoples, Angelica Ba, Brandon Durant and colleagues, with an educational mallika from [employer]. Thrive Questionnaire Date Thrive assessed: 03/01/25 I am a: Patient Within the past 12 months, did the food you bought not last and you didn't have the money to get more?: Never true Within the past 12 months, did you worry whether your food would run out before you got money to buy more?: Never true Do you have trouble paying for medicines?: No Do you have trouble getting transportation to medical appointments?: No Do you have trouble paying your heating and electricity bill?: No Do you have trouble taking care of your child, family member or friend?: No Do you have trouble with day-to-day activities such as bathing, preparing meals, shopping, managing finances, etc.?: No Are you currently unemployed and looking for a job?: No Are you interested in more education?: No THRIVE Score: 0 AUDIT C Alcohol Use Questionnaire (AUDIT-C) 1. How often do you have a drink containing alcohol?: Monthly or less 2. How many drinks containing alcohol do you have on a typical day when you are drinking?: 1 or 2 3. How often do you have six or more drinks on one occasion?: Less than monthly Total Score: 2 HUMBERTO-7 AMB Questionnaire HUMBERTO-7 Date HUMBERTO - 7 assessed: 03/01/25 Feeling nervous, anxious, or on edge: 0 = Not at all Not being able to stop or control worryin = Not at all Worrying too much about different things: 0 = Not at all Trouble relaxin = Not at all Being so restless that it is hard to sit still: 0 = Not at all Becoming easily annoyed or irritable: 0 = Not at all Feeling afraid as if something awful might happen: 0 = Not at all Total HUMBERTO-7 score (0-4 normal; 5-9 mild; 10-14 moderate; 15-21 severe): 0 Source: Developed by Drs. Benjamin Peoples, Angelica Ba, Brandon Durant and colleagues, with an educational mallika from [employer]. Review of Systems Const Details: - Respiratory: Reports shortness of breath with exertion - Neurological: Reports tingling and pain in feet, worsening at night - Gastrointestinal: Reports indigestion-like pain - Cardiovascular: Reports using nitroglycerin for chest pains All systems reviewed & are unremarkable except as reviewed in HPI and above Physical exam (Primary Care) Vital Signs: Last Vital Signs Temp 98.5 F 03/01/25 08:52 Pulse 73 03/01/25 08:52 BP 148/70 H 03/01/25 08:52 Pulse Ox 99 03/01/25 08:52 Oxygen Delivery Method Room Air 03/01/25 08:52 BMI result Body Mass Index 29.3 Tobacco/Smoking Status: Tobacco use Status Tobacco use date assessed 03/01/25 03/01/25 08:09 Patient Tobacco Use Status Former Tobacco user 03/01/25 08:09 e-Cigarette/Vaping Use Former Use 03/01/25 08:09 PHQ-9: PHQ-9 Score PHQ-9: Total score 0 03/01/25 09:04 Thrive Assessment: Date of Thrive Assessment Date Thrive assessed 03/01/25 03/01/25 08:09 Const Other: General: Alert and oriented, Well nourished, No acute distress. Eye: Pupils are equal, round and reactive to light, Intact accommodation, Extraocular movements are intact, Normal conjunctiva, Vision unchanged. HENT: Normocephalic, Atraumatic, Tympanic membranes are clear, Hearing impaired, Oral mucosa is moist, No pharyngeal erythema, Ear canals patent. Respiratory: Lungs CTA bilaterally, No wheeze, Respirations are non-labored, Shortness of breath noted. Cardiovascular: Regular rate, Regular rhythm, S1 auscultated, S2 auscultated, No murmur, Good pulses equal in all extremities, Normal peripheral perfusion, No edema. Gastrointestinal: Soft, Non-tender, Non-distended, Normal bowel sounds, No organomegaly. Musculoskeletal: Normal range of motion, Normal strength, No tenderness, No swelling, No deformity, Normal gait, Difficulty walking due to neuropathy. Integumentary: Warm, Dry, [place], Intact. Neurologic: Alert, Oriented, Normal sensory, Normal motor function, No focal defects, Cranial Nerves II-XII are grossly intact, Normal deep tendon reflexes, Neuropathy in lower extremities. Psychiatric: Cooperative, Appropriate mood & affect, Normal judgment. Coding Level of Care Code Est Pt Level 4 (15506) Complex EM visit Add On G2211 Diagnoses Essential hypertension I10 Atherosclerotic cardiovascular disease I25.10 Spinal stenosis of lumbar region with neurogenic claudication M48.062 Neurogenic claudication status: with neurogenic claudication TIMOTHY on CPAP G47.33 Shortness of breath R06.02 Other hyperlipidemia E78.49 Hyperlipidemia type: other hyperlipidemia Chronic hepatitis C without hepatic coma B18.2 Viral hepatitis chronicity: chronic Hepatic coma status: without hepatic coma Assessment & Plan Assessment & Plan (1) Essential hypertension: Comment: - Maintain current treatment with carvedilol, monitor blood pressure at home, and document readings for follow-up. Code(s): I10 - Essential (primary) hypertension Category: Medical (2) Atherosclerotic cardiovascular disease: Comment: - Continue Aspirin 81mg Daily Code(s): I25.10 - Atherosclerotic heart disease of [place] coronary artery without angina pectoris Category: Medical (3) Lumbar stenosis: Comment: - Imaging completed earlier in the year showed severe stenosis following which patient underwent decompression surgery. He has now developed tingling and pain in his lower extremity and is pending an EMG - Initiate gabapentin 100 mg for neuropathic pain, particularly in the lower extremities. Adjust dosage as needed based on effectiveness. - Proceed with EMG testing for detailed neuropathy assessment. Code(s): M48.061 - Spinal stenosis, lumbar region without neurogenic claudication Category: Medical Qualifiers: Neurogenic claudication status: with neurogenic claudication Qualified Code(s): M48.062 - Spinal stenosis, lumbar region with neurogenic claudication (4) TIMOTHY on CPAP: Comment: - Arrange for a repeat sleep study to ensure proper CPAP use and adjust coverage issues with Medicare. Code(s): G47.33 - Obstructive sleep apnea (adult) (pediatric) Category: Medical (5) Shortness of breath: Comment: - Order a pulmonary function test (PFT) to evaluate lung capacity and investigate potential COPD or emphysema. - Continue using albuterol inhaler as needed. Code(s): R06.02 - Shortness of breath Category: Medical (6) Hyperlipidemia: Comment: - Continue atorvastatin and monitor lipid levels. - No fasting required for the next cholesterol check. Code(s): E78.5 - Hyperlipidemia, unspecified Category: Medical Qualifiers: Hyperlipidemia type: other hyperlipidemia Qualified Code(s): E78.49 - Other hyperlipidemia (7) Hepatitis C: Comment: - Request updated hepatitis panel for current assessment of potential hepatitis C. Code(s): B19.20 - Unspecified viral hepatitis C without hepatic coma Category: Medical Qualifiers: Viral hepatitis chronicity: chronic Hepatic coma status: without hepatic coma Qualified Code(s): B18.2 - Chronic viral hepatitis C Plan: Healthcare Maintenance: - Inquiry for sleep study scheduling to assure Medicare coverage and update condition status. - Order of the pulmonary function test to evaluate lung condition and related health risks. - Bloodwork includes lipid panel and hepatitis C testing to confirm the current health state. Patient was informed and verbally consented to the use of an ambient scribe for clinic note documentation during this visit. Plan I discussed the need for a pulmonary function test to assess potential COPD or emphysema due to the patient's symptoms and history of smoking. I explained the importance of the EMG for neuropathy evaluation and mentioned that gabapentin has been prescribed to help manage the neuropathic pain, particularly at night. For the patient's hypertension and angina, I recommended continuing current medications and keeping a home blood pressure log to monitor control. Regarding GERD and sleep apnea, I talked through medication continuation and the need for a repeat sleep study to address usage and insurance concerns about the CPAP equipment. We also discussed the ordering of a hepatitis panel to check for hepatitis C, given the patient's report of past history. Lastly, we focused on the importance of maintaining prescribed therapies to manage elevated cholesterol and discussed the implications of current health maintenance steps. Orders: Orders PFT pulmonary function test Today R06.02 - Shortness of breath RT PSG in-lab sleep study Today G47.33 - Obstructive sleep apnea (adult) (pediatric) Comprehensive Met. Panel Today Z00.00 - Encounter for general adult medical examination without abnormal findings Lipid Panel Today Z00.00 - Encounter for general adult medical examination without abnormal findings Hepatitis C Antibody Reflex Today Z00.00 - Encounter for general adult medical examination without abnormal findings Complete Blood Count Auto Diff Today Z00.00 - Encounter for general adult medical examination without abnormal findings Hemoglobin A1c Today Z00.00 - Encounter for general adult medical examination without abnormal findings Syphilis Screen Today Z00.00 - Encounter for general adult medical examination without abnormal findings TSH reflex Free T4 Today Z00.00 - Encounter for general adult medical examination without abnormal findings Vitamin D 25-OH Total Today Z00.00 - Encounter for general adult medical examination without abnormal findings Medications: New gabapentin 100 mg PO BEDTIME 30 caps 0RF Patient Instructions: - Use your albuterol inhaler as needed for shortness of breath. - Keep a log of your blood pressure readings at home. - Take your gabapentin as prescribed, 100 mg at bedtime. - Use nitroglycerin if you experience chest pain. - Continue taking your prescribed medications daily. - Schedule and attend the sleep study and lung function tests. - Get the ordered blood tests done as soon as possible. - Let us know if your symptoms change or if you have any concerns. - Follow up in 30 days or sooner if symptoms do not improve.
[2025-03-01 08:52] VITALS: BP 148/70; PULSE 73; TEMP 36.9; O2SAT 99; BMI 29.3
--- OUTSIDE RECORDS SUMMARY | 2025-03-01 09:53 | XMS_ITS | Clinical Summary ---
Author Organization [facility] Address [address] [place] [address] Care Team Providers Care Boomswing Operator Name Role Phone Jaydon Dang MD Primary Care Provider [phone] Allergies No known active allergies Social History [...] patient's age to complete this topic Insurance [facility] - O Care Teams Boomswing Operator Relationship Specialty Start Date End Date Jaydon Dang MD [address] [place] [address] [place] [address] PCP - General 09/25/23
--- OUTSIDE RECORDS SUMMARY | 2025-03-01 09:53 | XMS_ITS | Encounter Summary ---
Author Organization [facility] Address [address] [place] [address] Care Team Providers Care Derrickman Helper Name Role Phone System, Provider Not In Primary Care Provider Un available Jaydon Dang MD Primary Care Provider [phone] Encounter Details Date Type Department Care Team (Late st Contact Info) Description 09/24/2023 Scanned Document [address] [place] [id number] Radiology, Scan Social History Tobacco Use [...] on filedocumented in this encounter Care Teams Derrickman Helper Relationship Specialty Start Date End Date System, Provider Not In PCP - General 08/23/23 09/24/23 Jaydon Dang MD [address] [place] [address] [place] [address] PCP - General 09/25/23 documented as of this encounter
--- OUTSIDE RECORDS SUMMARY | 2025-03-01 09:53 | XMS_ITS | Patient Health Record ---
Author Organization [facility] Address [address] [place] [address] Care Team Providers Care Account Receivable Associate Name Role Phone Laurence (RETIRED) Jaydon SANTANA [...] Status Risk Notes Problem Colon cancer screening (774803741) Colon cancer screening (Z12.11) Active confirmed Problem Pre-procedure evaluation check (369845587) Encounter for other preprocedural examination (Z01.818) Active confirmed Plan Of Treatment Future Test Test Name Order Date COLONOSCOPY 10/02/2018 Insurance Providers Payer Name Payer Address Payer Phone Subscriber Number Group Number Insured Name Patient Relationship to Insured Coverage Start Date Coverage End Date GREG [address] [place], [place] [address] [phone] [id number] NASH DAWKINS Self - patient is the insured Medical (General) History Medical History History ICD Code elevated cholesterol positive hepatitis C antibody, viral shivani ds have been negative. gastroesophageal reflux disease obstructive sleep apnea/CPAP Surgical History Surgery Date(Month/Year) back surgery 2009 neck surgery
--- OUTSIDE RECORDS SUMMARY | 2025-03-01 09:53 | XMS_ITS | Patient Health Record ---
Author Organization [facility] [place] Address [address] [place] [address] Care Team Providers Care Extrusion Machine Operator Name Role Phone Jaydon Dang MD Primary Care Provider Garth Stokes Unavailable [phone] Reason For Referral No Information Medications Medication [...] Status Risk Notes Problem Plantar fascial fibromatosis (37222277) Plantar fascial fibromatosis (M72.2) Active confirmed Plan Of Treatment No Information Insurance Providers Payer Name Payer Address Payer Phone Subscriber Number Group Number Insured Name Patient Relationship to Insured Coverage Start Date Coverage End Date [facility] [address] [place] [address] [phone] [id number] Tayler Fuentes Spouse - patient is the spouse of the insured Medical (General) History Medical History History ICD Code Neuropathy Reflux Cholesterol Surgical History Surgery Date(Month/Year) neck surgery 1999 back surgery 2009
== END 2025-03-01 09:17 | disposition home or self-care (01) ==
LOC: HO.HMCHD 08:48
PROVIDERS: PCP Student in an Organized Health Care Education/Training Program; Visit Provider Student in an Organized Health Care Education/Training Program
DX: I10 Essential (primary) hypertension (principal); I25.10 Atherosclerotic heart disease of native coronary artery without angina pectoris; M48.062 Spinal stenosis, lumbar region with neurogenic claudication; G47.33 Obstructive sleep apnea (adult) (pediatric); R06.02 Shortness of breath; E78.49 Other hyperlipidemia; B18.2 Chronic viral hepatitis C

== ENCOUNTER 2025-03-01 09:19 | Outpatient (REF) | payer MEDICARE, OTHER, SELFPAY ==
[2025-03-01 10:31] LABS: MANUAL DIFF FLAG NO
[2025-03-01 10:41] LABS: Hematocrit 50.3 % (42.0-52.0); Hemoglobin 17.0 g/dl (14.0-18.0); Imm Gran Abs Auto 0.07 X10*3/uL (0.00-0.03); Imm Gran Pct Auto 0.8 % (0.0-0.4); Lymphocytes Absolute Auto 2.3 X10*3/uL (1.2-4.9); Mean Corpuscular HGB Conc 33.8 g/dl (31.0-36.0); Mean Corpuscular Hemoglobin 30.2 pg (27.0-33.0); Mean Corpuscular Volume 89.3 fL (80.0-98.0); NRBC Abs Auto 0.000 X10*3/uL (0.0-0.012); NRBC Pct Auto 0.0 /100WBC (0.0-0.2); Platelet Count 265 X10*3/uL (160-400); Red Blood Count 5.63 X10*6/uL (4.60-5.80); White Blood Count 9.0 X10*3/uL (4.8-10.8)
[2025-03-01 10:44] LABS: Hemoglobin A1C 159.2881 umol/L; Total Hemoglobin (HGBA1C) 4172.9211 umol/L
[2025-03-01 10:57] LABS: Alanine Aminotransferase 48 U/L (0-40); Albumin Level 4.8 g/dL (3.5-5.0); Alkaline Phosphatase 59 U/L (39-117); Anion Gap 11 (12-20); Aspartate Amino Transferase 50 U/L (5-37); Blood Urea Nitrogen 17 mg/dL (9-16); Calcium 9.4 mg/dL (8.4-10.2); Carbon Dioxide 27 mmol/L (22-29); Chloride 105 mmol/L (96-108); Cholesterol 178 mg/dL (<200); Estimated Glomerular Filt Rate > 60; HDL Cholesterol 33 mg/dL (>40); Potassium 4.2 mmol/L (3.3-5.1); Sodium 139 mmol/L (135-145); Total Protein 7.6 g/dL (6.5-8.0); Triglycerides 359 mg/dL (<150)
[2025-03-01 11:11] LABS: Syphilis Screen Nonreactive (Nonreactive)
[2025-03-01 11:12] LABS: ~HepC Num1 2.96 S/CO (0.00-0.79); ~Hepatitis C Antibody Reactive (Nonreactive)
[2025-03-04 13:58] LABS: HCV Log PCR <1.18 NOT DETECTED Log IU/mL (NOT DETECTED); HepC Viral Load <15 NOT DETECTED IU/mL (NOT DETECTED)
== END 2025-03-01 09:20 | disposition home or self-care (01) ==
LOC: HO.10HDL 09:19
PROVIDERS: Visit Provider Student in an Organized Health Care Education/Training Program
DX: Z00.00 Encounter for general adult medical examination without abnormal findings (principal); B18.2 Chronic viral hepatitis C; I10 Essential (primary) hypertension; I25.10 Atherosclerotic heart disease of native coronary artery without angina pectoris; M48.062 Spinal stenosis, lumbar region with neurogenic claudication; G47.33 Obstructive sleep apnea (adult) (pediatric); R06.02 Shortness of breath; E78.49 Other hyperlipidemia; Z13.1 Encounter for screening for diabetes mellitus
CPT/HCPCS: 36415; 80053; 80061; 82306; 83036; 84443; 85025; 86780; 86803; 87522; 99212

== ENCOUNTER → 2025-03-21 19:30 | Outpatient (REF) | payer MEDICARE, OTHER, SELFPAY ==
--- OUTSIDE RECORDS SUMMARY | 2025-03-21 21:16 | XMS_ITS | Encounter Summary ---
Author Organization [facility] Address [address] [place] [address] Care Team Providers Care Oil Well Engineer Name Role Phone System, Provider Not In Primary Care Provider Un available Jaydon Dang MD Primary Care Provider [phone] Encounter Details Date Type Department Care Team (Late st Contact Info) Description 09/24/2023 Scanned Document [address] [place] [phone] Radiology, Scan Social History Tobacco Use [...] on filedocumented in this encounter Care Teams Oil Well Engineer Relationship Specialty Start Date End Date System, Provider Not In PCP - General 08/23/23 09/24/23 Jaydon Dang MD [address] [place] [address] [place] [address] PCP - General 09/25/23 documented as of this encounter
--- OUTSIDE RECORDS SUMMARY | 2025-03-21 21:16 | XMS_ITS | Clinical Summary ---
Author Organization [facility] Address [address] [place] [address] Care Team Providers Care Oyster Buyer Name Role Phone Jaydon Dang MD Primary Care Provider [phone] Allergies No known active allergies Social History [...] patient's age to complete this topic Insurance [facility] - O Care Teams Oyster Buyer Relationship Specialty Start Date End Date Jaydon Dang MD [address] [place] [address] [place] [address] PCP - General 09/25/23
--- OUTSIDE RECORDS SUMMARY | 2025-03-21 21:16 | XMS_ITS | Patient Health Record ---
Author Organization [facility] [place] Address [address] [facility] [place] [address] Care Team Providers Care Band Attacher Name Role Phone Jaydon Dang MD Primary Care Provider Garth Stokes Unavailable [phone] Reason For Referral No Information Medications Medication [...] Status Risk Notes Problem Plantar fascial fibromatosis (72759232) Plantar fascial fibromatosis (M72.2) Active confirmed Plan Of Treatment No Information Insurance Providers Payer Name Payer Address Payer Phone Subscriber Number Group Number Insured Name Patient Relationship to Insured Coverage Start Date Coverage End Date [facility] [address] [place] [address] [phone] [id number] Tayler Fuentes Spouse - patient is the spouse of the insured Medical (General) History Medical History History ICD Code Neuropathy Reflux Cholesterol Surgical History Surgery Date(Month/Year) neck surgery 1999 back surgery 2009
--- OUTSIDE RECORDS SUMMARY | 2025-03-21 21:17 | XMS_ITS | Patient Health Record ---
Author Organization [facility] Address [address] [place] [address] Care Team Providers Care Able Bodied Watchman Name Role Phone Laurence (RETIRED) Jaydon SANTANA [...] Status Risk Notes Problem Colon cancer screening ([id number]) Colon cancer screening (Z12.11) Active confirmed Problem Pre-procedure evaluation check (301926051) Encounter for other preprocedural examination (Z01.818) Active confirmed Plan Of Treatment Future Test Test Name Order Date COLONOSCOPY 10/02/2018 Insurance Providers Payer Name Payer Address Payer Phone Subscriber Number Group Number Insured Name Patient Relationship to Insured Coverage Start Date Coverage End Date GREG [address] [place], [place] [address] [id number] NASH DAWKINS Self - patient is the insured Medical (General) History Medical History History ICD Code elevated cholesterol positive hepatitis C antibody, viral shivani ds have been negative. gastroesophageal reflux disease obstructive sleep apnea/CPAP Surgical History Surgery Date(Month/Year) back surgery 2009 neck surgery
== END ==
LOC: HO.SL 19:30
PROVIDERS: PCP Student in an Organized Health Care Education/Training Program; Visit Provider Student in an Organized Health Care Education/Training Program
DX: G47.33 Obstructive sleep apnea (adult) (pediatric) (principal); R06.83 Snoring; G47.61 Periodic limb movement disorder
CPT/HCPCS: 95810

== ENCOUNTER → 2025-03-21 21:08 | Outpatient (BNV) | payer MEDICARE, OTHER, SELFPAY | PROVIDERS: PCP Student in an Organized Health Care Education/Training Program; Visit Provider Internal Medicine | DX: G47.33 Obstructive sleep apnea (adult) (pediatric) (principal); R06.83 Snoring; G47.61 Periodic limb movement disorder | CPT/HCPCS: 95810 ==

== ENCOUNTER → 2025-04-25 19:30 | Outpatient (REF) | payer MEDICARE, OTHER, SELFPAY ==
--- OUTSIDE RECORDS SUMMARY | 2025-04-25 20:49 | XMS_ITS | Clinical Summary ---
Author Organization [facility] Address [address] [place] [address] Care Team Providers Care Make Ready Mechanic Name Role Phone Jaydon Dang MD Primary Care Provider [phone] Allergies No known active allergies Social History [...] Influenza Vaccine 12/11/2024 COVID-19 Vaccine ( - 2024-2 6 season) 2025 RSV Vaccine 50 years and old er and Patients (1 - 1-dose 75+ series) 2033 Hepatitis B Vaccines Aged Out No long er eligible based on patient's age to complete this topic Insurance [facility] - O Care Teams Make Ready Mechanic Relationship Specialty Start Date End Date Jaydon Dang MD [address] [place] [address] [place] [address] PCP - General 09/25/23
--- OUTSIDE RECORDS SUMMARY | 2025-04-25 20:49 | XMS_ITS | Patient Health Record ---
[facility] [place] Address [address] [facility] [place] [place] [address] Care Team Providers Care Manager Security Name Role Phone Jaydon Dang MD Primary Care Provider Garth Stokes Unavailable [phone] Reason For Referral No Information Medications Medication [...] Status Risk Notes Problem Plantar fascial fibromatosis (56026198) Plantar fascial fibromatosis (M72.2) Active confirmed Plan Of Treatment No Information Insurance Providers Payer Name Payer Address Payer Phone Subscriber Number Group Number Insured Name Patient Relationship to Insured Coverage Start Date Coverage End Date [facility] [address] [place] [address] [id number] Tayler Fuentes Spouse - patient is the spouse of the insured Medical (General) History Medical History History ICD Code Neuropathy Reflux Cholesterol Surgical History Surgery Date(Month/Year) neck surgery 1999 back surgery 2009
--- OUTSIDE RECORDS SUMMARY | 2025-04-25 20:49 | XMS_ITS | Patient Health Record ---
Author Organization [facility] Address [address] [place] [address] Care Team Providers Care Hydro Plant Site Manager Name Role Phone Laurence (RETIRED) Jaydon SANTANA Primary Care Provide r Taiwo Rodriguez Jr Unavailable [phone] Reason For Referral No Information Medications Medication SIG (Take, Route, Frequency, Duration) Notes Start Date End Date Status Calcium Magnesium zinc 1 tablet orally o nce a day Active Colyte with Flavor Packs 240 GM Solution Reconstituted As directed Orally Over the specified time.; Duration: 1 day(s) 10/02/2018 Active Atorvastatin Calcium 40 MG Tablet TAKE 1 TABLET BY MOUTH EVERY DAY Oral; Duration: 30 Active Omeprazole 20 MG Capsule Delayed Release 1 capsule Orally Once a day; Duration: 30 day(s) Active Immunizations Vaccine Route Administration Date Status Comme nts Influenza Unknown 10/02/2018 Refused Social History Tobacco Use: Social History Observation Description Date Details (start date - stop date) Former Smoker NA - NA Social History Drugs/Alcohol: Social Info Question Answer Notes Alcohol Screen Did you have a drink containing alcohol in the past year? Yes How often did you have a drink containing alcohol in the past year? 2 to 4 times a month (2 points) How many drinks did you have on a typical day when you were drinking in the past year? 3 or 4 drinks (1 point) Points 3 Interpretation Negative Tobacco Use: Social Info Question Answer Notes Tobacco Use/Smoking Patient is a former smoker When did you stop smoking? 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 Problems Problem Type SNOMED Code ICD Code Onset Dates Problem Status W/U Status Risk Notes Problem Colon cancer screening (830239805) Colon cancer screening (Z12.11) Active confirmed Problem Pre-procedure evaluation check (990074823) Encounter for other preprocedural examination (Z01.818) Active confirmed Plan Of Treatment Future Test Test Name Order Date COLONOSCOPY 10/02/2018 Insurance Providers Payer Name Payer Address Payer Phone Subscriber Number Group Number Insured Name Patient Relationship to Insured Coverage Start Date Coverage End Date [facility] [address] [place] [address] [phone] [id number] Self - patient is the insured Medical (General) History Medical History History ICD Code elevated cholesterol positive hepatitis C antibody, viral shivani ds have been negative. gastroesophageal reflux disease obstructive sleep apnea/CPAP Surgical History Surgery Date(Month/Year) back surgery 2009 neck surgery
--- OUTSIDE RECORDS SUMMARY | 2025-04-25 20:49 | XMS_ITS | Encounter Summary ---
Author Organization [facility] Address [address] [place] [address] Care Team Providers Care Buffing And Sueding Machine Operator Name Role Phone System, Provider Not In Primary Care Provider Un available Jaydon Dang MD Primary Care Provider [phone] Encounter Details Date Type Department Care Team (Late st Contact Info) Description 09/24/2023 Scanned Document [address] [place] [id number] Radiology, Scan Social History Tobacco Use [...] on filedocumented in this encounter Care Teams Buffing And Sueding Machine Operator Relationship Specialty Start Date End Date System, Provider Not In PCP - General 08/23/23 09/24/23 Jaydon Dang MD [address] [place] [address] [place] [address] PCP - General 09/25/23 documented as of this encounter
== END ==
LOC: HO.SL 19:30
PROVIDERS: PCP Student in an Organized Health Care Education/Training Program; Visit Provider Student in an Organized Health Care Education/Training Program
DX: G47.33 Obstructive sleep apnea (adult) (pediatric) (principal); G47.61 Periodic limb movement disorder
CPT/HCPCS: 95811

== ENCOUNTER → 2025-04-25 20:45 | Outpatient (BNV) | payer MEDICARE, OTHER, SELFPAY | PROVIDERS: PCP Student in an Organized Health Care Education/Training Program; Visit Provider Internal Medicine | DX: G47.33 Obstructive sleep apnea (adult) (pediatric) (principal); G47.61 Periodic limb movement disorder | CPT/HCPCS: 95811 ==